=== PATIENT | male | born 1945 | race Caucasian/White ===

== ENCOUNTER 2020-05-01 13:43 | Inpatient (IN) | payer BC, SELFPAY ==
[~2020-05-01] VITALS: Ht 185.4 cm; Wt 80.7 kg
[2020-05-01 14:02] VITALS: BP_SYST 146
[2020-05-01 15:08] LABS: BILIRUBIN,URINE NEGATIVE (NEGATIVE); CLARITY/URINE CLEAR (CLEAR); COLOR,URINE YELLOW (YELLOW); GLUCOSE,URINE 2+ (NEGATIVE); KETONES,URINE NEGATIVE (NEGATIVE); LEUKOCYTE ESTERASE ,URINE NEGATIVE (NEGATIVE); NITRITE, URINE NEGATIVE (NEGATIVE); PROTEIN URINE 3+ (NEGATIVE); UROBILINOGEN,URINE 0.2 (0.2-1.0)
[2020-05-01 15:21] LABS: BLOOD, URINE TRACE (NEGATIVE)
[2020-05-01 15:39] LABS: BASOPHILS % (AUTO) 0.1 % (0.0-2.0); EOSINOPHILS % (AUTO) 0.1 % (0.0-4.0); HEMOGLOBIN 7.2 g/dL (14.0-18.0); LYMPHOCYTES # (AUTO) 0.8 K/uL (1.0-5.5); LYMPHOCYTES % (AUTO) 6.2 % (20.5-51.5); MEAN CORPUSCULAR HEMOGLOBIN 29 pg (27-31); MEAN CORPUSCULAR HGB CONC 34 % (32-36); MEAN CORPUSCULAR VOLUME 85 fL (79.0-98.0); MONOCYTES # (AUTO) 0.4 K/uL (0.0-1.0); MONOCYTES % (AUTO) 2.7 % (1.7-9.3); NEUTROPHILS # (AUTO) 11.7 K/uL (1.8-7.7); NEUTROPHILS % (AUTO) 90.9 % (40.0-70.0); PLATELET COUNT (AUTO) 327 K/uL (130-430); RED BLOOD CELL COUNT(AUTO) 2.53 MIL/uL (4.2-6.2); RED CELL DISTRIBUTION WIDTH 15.2 % (9.0-15.0); WHITE BLOOD COUNT (AUTO) 12.9 K/uL (4.8-10.8)
[2020-05-01 15:48] LABS: BACTERIA,URINE FEW /HPF (None Seen); MUCUS,URINE None Seen /LPF (None Seen); RBC,URINE 0-3 /HPF (0-3)
[2020-05-01 15:56] LABS: HEMATOCRIT 21.5 % (36-54)
[2020-05-01 16:02] LABS: ANION GAP 11 (5-15); CALCIUM 8.2 mg/dL (8.4-11.0); CHLORIDE 98 mmol/L (98-107); CREATININE 6.28 mg/dL (0.55-1.30); GLUCOSE 244 mg/dL (70-99); SODIUM SERUM 136 mmol/L (136-145); UREA NITROGEN, BLOOD 53 mg/dL (8-21)
[2020-05-01 16:09] LABS: ALANINE AMINOTRANSFERASE 76 U/L (12-78); ALBUMIN 1.9 g/dL (3.4-4.8); ASPARTATE AMINOTRANSFERASE 53 U/L (10-37); TOTAL BILIRUBIN 0.5 mg/dL (0.0-1.0)
[2020-05-01 16:13] LABS: POTASSIUM 2.9 mmol/L (3.5-5.1)
[2020-05-01] MEDS ORDERED: DEXAMETHASONE SOD PHOSPHATE 4 MG/ML VIAL IVP ONE ×2 (16:15→18:15)
[2020-05-01] MEDS ORDERED: cefTRIAXone 1 GM IVPB PREMIX 50 ML IV ONE (16:15)
[2020-05-01] MEDS ORDERED: AZITHROMYCIN 500 MG in NS 250 ML IV ONE (16:15)
[2020-05-01] MEDS ORDERED: AZITHROMYCIN 500 MG/VIAL (ZITHROMAX) IV ONE (16:35)
[2020-05-01] MEDS ORDERED: DEXAMETHASONE SOD PHOSPHATE 4 MG/ML VIAL ONE (16:46)
[2020-05-01] MEDS ORDERED: DEXAMETHASONE SOD PHOSPHATE 10 MG/ML VIAL IVP SCH (17:00)
[2020-05-01] MEDS ORDERED: IPRATROPIUM BROM 0.5 MG/2.5 ML VIAL.NEB (ATROVENT) INH PRN (17:00)
[2020-05-01 17:18] VITALS: BP_SYST 160
[2020-05-01 17:20] VITALS: BP_SYST 124
[2020-05-01] MEDS ORDERED: ALBUTEROL MDI INHALATION 8 GM INH INH PRN (17:30)
[2020-05-01] MEDS ORDERED: ALBUTEROL MDI INHALATION 8 GM INH INH SCH (19:00)
[2020-05-01] MEDS: ALBUTEROL MDI INHALATION 8 GM INH INH SCH (19:55)
[2020-05-01] MEDS: MORPHINE 2 MG/ML INJ. SYRINGE IVP PRN (20:47)
[2020-05-01] MEDS: HEPARIN SODIUM,PORCINE 5,000 UNITS/ML VIAL SUBCUT SCH (20:57)
[2020-05-01] MEDS ORDERED: HEPARIN SODIUM,PORCINE 5,000 UNITS/ML VIAL MC ONE (21:00)
[2020-05-02] VITALS (8 sets, daily range): BP systolic 154–180
[2020-05-02 07:21] LABS: BASOPHILS % (AUTO) 0.3 % (0.0-2.0); HEMATOCRIT 29.5 % (36-54); HEMOGLOBIN 10.2 g/dL (14.0-18.0); LYMPHOCYTES # (AUTO) 0.6 K/uL (1.0-5.5); LYMPHOCYTES % (AUTO) 5.9 % (20.5-51.5); MEAN CORPUSCULAR HEMOGLOBIN 30 pg (27-31); MEAN CORPUSCULAR HGB CONC 35 % (32-36); MEAN CORPUSCULAR VOLUME 86 fL (79.0-98.0); MONOCYTES # (AUTO) 0.3 K/uL (0.0-1.0); NEUTROPHILS # (AUTO) 9.6 K/uL (1.8-7.7); NEUTROPHILS % (AUTO) 90.8 % (40.0-70.0); PLATELET COUNT (AUTO) 274 K/uL (130-430); RED BLOOD CELL COUNT(AUTO) 3.43 MIL/uL (4.2-6.2); RED CELL DISTRIBUTION WIDTH 14.9 % (9.0-15.0); WHITE BLOOD COUNT (AUTO) 10.6 K/uL (4.8-10.8)
[2020-05-02] MEDS: IPRATROPIUM BROM 0.5 MG/2.5 ML VIAL.NEB (ATROVENT) INH SCH ×2 (07:30→15:35)
[2020-05-02] MEDS: ALBUTEROL MDI INHALATION 8 GM INH INH SCH ×4 (07:30→19:59)
[2020-05-02 07:42] LABS: ALANINE AMINOTRANSFERASE 72 U/L (12-78); ALBUMIN 1.9 g/dL (3.4-4.8); ANION GAP 11 (5-15); ASPARTATE AMINOTRANSFERASE 47 U/L (10-37); CHLORIDE 100 mmol/L (98-107); CREATININE 5.05 mg/dL (0.55-1.30); GLUCOSE 185 mg/dL (70-99); POTASSIUM 3.7 mmol/L (3.5-5.1); SODIUM SERUM 137 mmol/L (136-145); TOTAL BILIRUBIN 0.4 mg/dL (0.0-1.0); UREA NITROGEN, BLOOD 39 mg/dL (8-21)
[2020-05-02] MEDS: HEPARIN SODIUM,PORCINE 5,000 UNITS/ML VIAL SUBCUT SCH ×2 (08:31→21:00)
[2020-05-02] MEDS ORDERED: cloNIDine HCL 0.1 MG TABLET PO PRN (09:15)
[2020-05-02] MEDS: hydrALAZINE HCL 20 MG/ML VIAL IVP PRN ×2 (10:07→16:08)
[2020-05-02] MEDS ORDERED: PRAV80TA20 PO (15:31)
[2020-05-02] MEDS ORDERED: GLIP2.5T3 PO (15:31)
[2020-05-02] MEDS ORDERED: DORZ10DR10 EACH EYE (15:31)
[2020-05-02] MEDS ORDERED: ASCO500T20 PO (15:31)
[2020-05-02] MEDS ORDERED: TAMS-11 PO (15:31)
[2020-05-02] MEDS ORDERED: HYDR-4039 PO (15:31)
[2020-05-02] MEDS ORDERED: HCT25 PO (15:31)
[2020-05-02] MEDS ORDERED: CLOP75TA32 PO (15:31)
[2020-05-02] MEDS ORDERED: VERA120C2 PO (15:31)
[2020-05-02] MEDS ORDERED: TEMA30CA5 PO (15:31)
[2020-05-02] MEDS ORDERED: CIME800T PO (15:31)
[2020-05-02] MEDS ORDERED: FERR-69 PO (15:31)
[2020-05-02] MEDS ORDERED: BENA40TA8 PO (15:31)
[2020-05-02] MEDS ORDERED: CAT.2 PO ×2 (15:31)
[2020-05-02] MEDS ORDERED: LEVO150T PO (15:32)
[2020-05-02] MEDS ORDERED: DEXAMETHASONE SOD PHOSPHATE 10 MG/ML VIAL IVP SCH ×2 (17:00)
[2020-05-02] MEDS: DEXAMETHASONE SOD PHOSPHATE 10 MG/ML VIAL IVP SCH (17:08)
[2020-05-02] MEDS: cefTRIAXone 1 GM in D5W 50 ML IV SCH (17:08)
[2020-05-02] MEDS: MORPHINE 2 MG/ML INJ. SYRINGE IVP PRN (17:31)
[2020-05-02] MEDS: AZITHROMYCIN 500 MG in NS 250 ML IV SCH (18:08)
[2020-05-02] MEDS ORDERED: HEPARIN SODIUM,PORCINE 5,000 UNITS/ML VIAL MC ONE (20:15)
[2020-05-02] MEDS: HYDROCHLOROTHIAZIDE 25 MG TABLET (HCTZ) PO SCH (21:12)
[2020-05-02] MEDS: VERAPAMIL HCL 120 MG TABLET.SA PO SCH (21:12)
[2020-05-02] MEDS: FAMOTIDINE 20 MG TABLET PO SCH (21:13)
[2020-05-02] MEDS: TEMAZEPAM 15 MG CAPSULE PO SCH (21:13)
[2020-05-02] MEDS: hydrALAZINE HCL 25 MG TABLET PO SCH (21:14)
[2020-05-02] MEDS: lisinopriL 20 MG TABLET PO SCH (21:14)
[2020-05-03] VITALS: BP_SYST 154
[2020-05-03] MEDS: LEVOTHYROXINE SODIUM 0.15 MG TABLET PO SCH (06:58)
[2020-05-03] MEDS: IPRATROPIUM BROM 0.5 MG/2.5 ML VIAL.NEB (ATROVENT) INH SCH (07:00)
[2020-05-03] MEDS: ALBUTEROL MDI INHALATION 8 GM INH INH SCH ×4 (07:45→19:40)
[2020-05-03 07:55] VITALS: BP_SYST 158
[2020-05-03] MEDS: CLOPIDOGREL BISULFATE 75 MG TABLET PO SCH (09:51)
[2020-05-03] MEDS: VERAPAMIL HCL 120 MG TABLET.SA PO SCH ×2 (09:51→21:00)
[2020-05-03] MEDS: HYDROCHLOROTHIAZIDE 25 MG TABLET (HCTZ) PO SCH ×2 (09:51→21:00)
[2020-05-03] MEDS: TAMSULOSIN HCL 0.4 MG CAP PO SCH (09:51)
[2020-05-03] MEDS: hydrALAZINE HCL 25 MG TABLET PO SCH ×3 (09:51→21:00)
[2020-05-03] MEDS: lisinopriL 20 MG TABLET PO SCH ×2 (09:52→21:00)
[2020-05-03] MEDS: HEPARIN SODIUM,PORCINE 5,000 UNITS/ML VIAL SUBCUT SCH ×2 (09:53→21:00)
[2020-05-03 12:00] VITALS: BP_SYST 155
[2020-05-03 16:00] VITALS: BP_SYST 162
[2020-05-03] MEDS: DEXAMETHASONE SOD PHOSPHATE 10 MG/ML VIAL IVP SCH (17:00)
[2020-05-03] MEDS: cefTRIAXone 1 GM in D5W 50 ML IV SCH (17:00)
[2020-05-03] MEDS: AZITHROMYCIN 500 MG in NS 250 ML IV SCH (17:00)
[2020-05-03 20:00] VITALS: BP_SYST 163
[2020-05-03 20:53] LABS: INR 1.1 (0.80-1.20); PROTHROMBIN TIME 11.7 SECS (9.5-12.5)
[2020-05-03] MEDS: FAMOTIDINE 20 MG TABLET PO SCH (21:00)
[2020-05-03] MEDS: TEMAZEPAM 15 MG CAPSULE PO SCH (21:00)
[2020-05-03] MEDS ORDERED: cloNIDine HCL 0.1 MG TABLET ONE (23:44)
[2020-05-04] VITALS: BP_SYST 186
[2020-05-04] MEDS ORDERED: cloNIDine HCL 0.1 MG TABLET ONE ×2 (00:08→22:58)
[2020-05-04] MEDS: hydrALAZINE HCL 20 MG/ML VIAL IVP PRN (02:14)
[2020-05-04] MEDS: LEVOTHYROXINE SODIUM 0.15 MG TABLET PO SCH (06:37)
[2020-05-04 06:56] LABS: BASOPHILS % (AUTO) 0.2 % (0.0-2.0); EOSINOPHILS # (AUTO) 0.1 K/uL (0.0-0.4); EOSINOPHILS % (AUTO) 0.5 % (0.0-4.0); HEMATOCRIT 38.8 % (36-54); HEMOGLOBIN 12.9 g/dL (14.0-18.0); LYMPHOCYTES # (AUTO) 0.7 K/uL (1.0-5.5); LYMPHOCYTES % (AUTO) 6.2 % (20.5-51.5); MEAN CORPUSCULAR HEMOGLOBIN 29 pg (27-31); MEAN CORPUSCULAR HGB CONC 33 % (32-36); MEAN CORPUSCULAR VOLUME 87 fL (79.0-98.0); MONOCYTES # (AUTO) 0.2 K/uL (0.0-1.0); MONOCYTES % (AUTO) 1.5 % (1.7-9.3); NEUTROPHILS # (AUTO) 10.3 K/uL (1.8-7.7); NEUTROPHILS % (AUTO) 91.6 % (40.0-70.0); PLATELET COUNT (AUTO) 261 K/uL (130-430); RED BLOOD CELL COUNT(AUTO) 4.45 MIL/uL (4.2-6.2); RED CELL DISTRIBUTION WIDTH 15.1 % (9.0-15.0); WHITE BLOOD COUNT (AUTO) 11.2 K/uL (4.8-10.8)
[2020-05-04] MEDS: ALBUTEROL MDI INHALATION 8 GM INH INH SCH ×4 (07:29→19:40)
[2020-05-04 07:42] LABS: ALANINE AMINOTRANSFERASE 53 U/L (12-78); ALBUMIN 2.1 g/dL (3.4-4.8); ANION GAP 16 (5-15); ASPARTATE AMINOTRANSFERASE 29 U/L (10-37); CALCIUM 8.6 mg/dL (8.4-11.0); CHLORIDE 97 mmol/L (98-107); CREATININE 5.48 mg/dL (0.55-1.30); GLUCOSE 259 mg/dL (70-99); POTASSIUM 3.2 mmol/L (3.5-5.1); SODIUM SERUM 136 mmol/L (136-145); TOTAL BILIRUBIN 0.6 mg/dL (0.0-1.0); UREA NITROGEN, BLOOD 47 mg/dL (8-21)
[2020-05-04 08:00] VITALS: BP_SYST 160
[2020-05-04 08:19] VITALS: BP_SYST 186
[2020-05-04] MEDS: CLOPIDOGREL BISULFATE 75 MG TABLET PO SCH ×2 (08:30→08:44)
[2020-05-04] MEDS: TAMSULOSIN HCL 0.4 MG CAP PO SCH ×2 (08:30→08:43)
[2020-05-04] MEDS: hydrALAZINE HCL 25 MG TABLET PO SCH ×3 (08:43→21:04)
[2020-05-04] MEDS: VERAPAMIL HCL 120 MG TABLET.SA PO SCH ×2 (08:43→21:03)
[2020-05-04] MEDS: HEPARIN SODIUM,PORCINE 5,000 UNITS/ML VIAL SUBCUT SCH ×2 (08:44→20:54)
[2020-05-04] MEDS: HYDROCHLOROTHIAZIDE 25 MG TABLET (HCTZ) PO SCH ×2 (08:44→21:04)
[2020-05-04] MEDS: lisinopriL 20 MG TABLET PO SCH ×2 (08:44→21:03)
[2020-05-04 12:16] VITALS: BP_SYST 173
[2020-05-04] MEDS ORDERED: HEPARIN SODIUM,PORCINE 5,000 UNITS/ML VIAL SUBCUT ONE (13:30)
[2020-05-04] MEDS: cefTRIAXone 1 GM in D5W 50 ML IV SCH (15:48)
[2020-05-04 16:18] VITALS: BP_SYST 179
[2020-05-04] MEDS: AZITHROMYCIN 500 MG in NS 250 ML IV SCH (18:21)
[2020-05-04] MEDS: DEXAMETHASONE SOD PHOSPHATE 10 MG/ML VIAL IVP SCH (18:21)
[2020-05-04 20:00] VITALS: BP_SYST 182
[2020-05-04] MEDS: TEMAZEPAM 15 MG CAPSULE PO SCH (21:00)
[2020-05-04] MEDS: FAMOTIDINE 20 MG TABLET PO SCH (21:04)
[2020-05-05] VITALS (7 sets, daily range): BP systolic 153–180
[2020-05-05] MEDS: LEVOTHYROXINE SODIUM 0.15 MG TABLET PO SCH (05:59)
[2020-05-05] MEDS: ALBUTEROL MDI INHALATION 8 GM INH INH SCH ×3 (07:52→15:27)
[2020-05-05] MEDS: HEPARIN SODIUM,PORCINE 5,000 UNITS/ML VIAL SUBCUT SCH ×2 (09:08→22:30)
[2020-05-05] MEDS: CLOPIDOGREL BISULFATE 75 MG TABLET PO SCH (09:09)
[2020-05-05] MEDS: TAMSULOSIN HCL 0.4 MG CAP PO SCH (09:10)
[2020-05-05] MEDS: hydrALAZINE HCL 25 MG TABLET PO SCH ×3 (09:39→22:27)
[2020-05-05] MEDS: HYDROCHLOROTHIAZIDE 25 MG TABLET (HCTZ) PO SCH ×2 (09:41→22:28)
[2020-05-05] MEDS: VERAPAMIL HCL 120 MG TABLET.SA PO SCH ×2 (09:41→22:28)
[2020-05-05] MEDS: lisinopriL 20 MG TABLET PO SCH ×2 (09:41→22:28)
[2020-05-05] MEDS: MORPHINE 2 MG/ML INJ. SYRINGE IVP PRN (12:06)
[2020-05-05] MEDS: DEXAMETHASONE SOD PHOSPHATE 10 MG/ML VIAL IVP SCH (16:09)
[2020-05-05] MEDS: cefTRIAXone 1 GM in D5W 50 ML IV SCH (16:10)
[2020-05-05] MEDS: AZITHROMYCIN 500 MG in NS 250 ML IV SCH (16:49)
[2020-05-05] MEDS: FAMOTIDINE 20 MG TABLET PO SCH (21:35)
[2020-05-05] MEDS: TEMAZEPAM 15 MG CAPSULE PO SCH (21:35)
[2020-05-06] VITALS: BP_SYST 163
[2020-05-06] MEDS: ALBUTEROL MDI INHALATION 8 GM INH INH SCH ×4 (05:07→19:05)
[2020-05-06] MEDS: LEVOTHYROXINE SODIUM 0.15 MG TABLET PO SCH (07:02)
[2020-05-06 07:57] VITALS: BP_SYST 188
[2020-05-06] MEDS: HYDROCHLOROTHIAZIDE 25 MG TABLET (HCTZ) PO SCH ×2 (08:05→20:56)
[2020-05-06] MEDS: TAMSULOSIN HCL 0.4 MG CAP PO SCH (08:05)
[2020-05-06] MEDS: VERAPAMIL HCL 120 MG TABLET.SA PO SCH ×2 (08:06→20:55)
[2020-05-06] MEDS: hydrALAZINE HCL 25 MG TABLET PO SCH ×3 (08:06→20:57)
[2020-05-06] MEDS: lisinopriL 20 MG TABLET PO SCH ×2 (08:07→20:57)
[2020-05-06] MEDS: HEPARIN SODIUM,PORCINE 5,000 UNITS/ML VIAL SUBCUT SCH ×2 (08:07→20:59)
[2020-05-06] MEDS: CLOPIDOGREL BISULFATE 75 MG TABLET PO SCH (08:07)
[2020-05-06] MEDS: hydrALAZINE HCL 20 MG/ML VIAL IVP PRN (11:06)
[2020-05-06 11:28] VITALS: BP_SYST 181
[2020-05-06] MEDS ORDERED: HEPARIN SODIUM,PORCINE 5,000 UNITS/ML VIAL ONE (14:06)
[2020-05-06] MEDS: HEPARIN SODIUM, PORCINE 10,000 UNITS/ 10 ML VIAL MC SCH (14:09)
[2020-05-06 15:40] VITALS: BP_SYST 139
[2020-05-06] MEDS: cefTRIAXone 1 GM in D5W 50 ML IV SCH (16:15)
[2020-05-06] MEDS: DEXAMETHASONE SOD PHOSPHATE 10 MG/ML VIAL IVP SCH (16:15)
[2020-05-06] MEDS: AZITHROMYCIN 500 MG in NS 250 ML IV SCH (17:14)
[2020-05-06 20:00] VITALS: BP_SYST 142
[2020-05-06] MEDS: FAMOTIDINE 20 MG TABLET PO SCH (20:55)
[2020-05-06] MEDS: TEMAZEPAM 15 MG CAPSULE PO SCH (20:55)
[2020-05-06] MEDS: MORPHINE 2 MG/ML INJ. SYRINGE IVP PRN (23:41)
[2020-05-07] VITALS (8 sets, daily range): BP systolic 142–190
[2020-05-07] MEDS: LEVOTHYROXINE SODIUM 0.15 MG TABLET PO SCH (06:39)
[2020-05-07] MEDS: ALBUTEROL MDI INHALATION 8 GM INH INH SCH ×4 (08:16→20:25)
[2020-05-07] MEDS: HYDROCHLOROTHIAZIDE 25 MG TABLET (HCTZ) PO SCH ×2 (08:45→22:12)
[2020-05-07] MEDS: TAMSULOSIN HCL 0.4 MG CAP PO SCH (08:45)
[2020-05-07] MEDS: VERAPAMIL HCL 120 MG TABLET.SA PO SCH ×2 (08:45→22:12)
[2020-05-07] MEDS: CLOPIDOGREL BISULFATE 75 MG TABLET PO SCH (08:46)
[2020-05-07] MEDS: lisinopriL 20 MG TABLET PO SCH ×2 (08:46→22:13)
[2020-05-07] MEDS: hydrALAZINE HCL 25 MG TABLET PO SCH ×3 (08:46→22:11)
[2020-05-07] MEDS: HEPARIN SODIUM,PORCINE 5,000 UNITS/ML VIAL SUBCUT SCH ×2 (08:47→22:14)
[2020-05-07] MEDS: DEXAMETHASONE SOD PHOSPHATE 10 MG/ML VIAL IVP SCH (16:06)
[2020-05-07] MEDS: cefTRIAXone 1 GM in D5W 50 ML IV SCH (16:07)
[2020-05-07] MEDS: TEMAZEPAM 15 MG CAPSULE PO SCH (22:10)
[2020-05-07] MEDS: FAMOTIDINE 20 MG TABLET PO SCH (22:10)
[2020-05-08] VITALS: BP_SYST 155
[2020-05-08] MEDS: LEVOTHYROXINE SODIUM 0.15 MG TABLET PO SCH (06:07)
[2020-05-08] MEDS: ALBUTEROL MDI INHALATION 8 GM INH INH SCH ×4 (07:31→20:26)
[2020-05-08 08:23] VITALS: BP_SYST 158
[2020-05-08] MEDS: TAMSULOSIN HCL 0.4 MG CAP PO SCH (09:00)
[2020-05-08] MEDS: lisinopriL 20 MG TABLET PO SCH ×2 (09:00→21:00)
[2020-05-08] MEDS: HYDROCHLOROTHIAZIDE 25 MG TABLET (HCTZ) PO SCH ×2 (09:00→21:00)
[2020-05-08] MEDS: HEPARIN SODIUM,PORCINE 5,000 UNITS/ML VIAL SUBCUT SCH ×2 (09:00→21:15)
[2020-05-08] MEDS: VERAPAMIL HCL 120 MG TABLET.SA PO SCH ×2 (10:18→21:00)
[2020-05-08] MEDS: CLOPIDOGREL BISULFATE 75 MG TABLET PO SCH (10:18)
[2020-05-08] MEDS: hydrALAZINE HCL 25 MG TABLET PO SCH ×3 (10:19→21:00)
[2020-05-08 12:00] VITALS: BP_SYST 178
[2020-05-08 16:20] VITALS: BP_SYST 197
[2020-05-08 16:27] LABS: BASOPHILS # (AUTO) 0.1 K/uL (0.0-0.2); BASOPHILS % (AUTO) 0.5 % (0.0-2.0); EOSINOPHILS % (AUTO) 0.1 % (0.0-4.0); HEMATOCRIT 34.2 % (36-54); HEMOGLOBIN 11.4 g/dL (14.0-18.0); LYMPHOCYTES # (AUTO) 0.5 K/uL (1.0-5.5); LYMPHOCYTES % (AUTO) 4.8 % (20.5-51.5); MEAN CORPUSCULAR HEMOGLOBIN 29 pg (27-31); MEAN CORPUSCULAR HGB CONC 33 % (32-36); MEAN CORPUSCULAR VOLUME 87 fL (79.0-98.0); MONOCYTES # (AUTO) 0.3 K/uL (0.0-1.0); NEUTROPHILS # (AUTO) 8.8 K/uL (1.8-7.7); NEUTROPHILS % (AUTO) 91.6 % (40.0-70.0); PLATELET COUNT (AUTO) 206 K/uL (130-430); RED BLOOD CELL COUNT(AUTO) 3.93 MIL/uL (4.2-6.2); RED CELL DISTRIBUTION WIDTH 14.9 % (9.0-15.0); WHITE BLOOD COUNT (AUTO) 9.7 K/uL (4.8-10.8)
[2020-05-08] MEDS: DEXAMETHASONE SOD PHOSPHATE 10 MG/ML VIAL IVP SCH (17:00)
[2020-05-08] MEDS: cefTRIAXone 1 GM in D5W 50 ML IV SCH (17:00)
[2020-05-08 17:43] LABS: ANION GAP 13 (5-15); CALCIUM 8.7 mg/dL (8.4-11.0); CHLORIDE 99 mmol/L (98-107); CREATININE 7.09 mg/dL (0.55-1.30); POTASSIUM 3.5 mmol/L (3.5-5.1); SODIUM SERUM 134 mmol/L (136-145); UREA NITROGEN, BLOOD 80 mg/dL (8-21)
[2020-05-08 17:56] LABS: GLUCOSE 594 mg/dL (70-99)
[2020-05-08] MEDS ORDERED: INSULIN REGULAR, HUMAN 100 UNITS/ML, 10 ML VIAL SUBCUT ONE (18:30)
[2020-05-08] MEDS ORDERED: HEPARIN SODIUM, PORCINE 10,000 UNITS/ 10 ML VIAL MC ONE (19:00)
[2020-05-08 20:00] VITALS: BP_SYST 168
[2020-05-08] MEDS ORDERED: LORazepam 2 MG/ML VIAL IVP ONE (20:15)
[2020-05-08] MEDS: FAMOTIDINE 20 MG TABLET PO SCH (21:00)
[2020-05-08] MEDS: INSULIN REGULAR, HUMAN 100 UNITS/ML, 10 ML VIAL (humuLIN R) SUBCUT PRN (21:11)
[2020-05-08] MEDS: hydrALAZINE HCL 20 MG/ML VIAL IVP PRN (21:15)
[2020-05-09] VITALS: BP_SYST 143
[2020-05-09] MEDS: LEVOTHYROXINE SODIUM 0.15 MG TABLET PO SCH (06:21)
[2020-05-09 08:00] VITALS: BP_SYST 171
[2020-05-09] MEDS: CLOPIDOGREL BISULFATE 75 MG TABLET PO SCH (10:03)
[2020-05-09] MEDS: HYDROCHLOROTHIAZIDE 25 MG TABLET (HCTZ) PO SCH ×2 (10:04→20:18)
[2020-05-09] MEDS: lisinopriL 20 MG TABLET PO SCH ×2 (10:04→20:18)
[2020-05-09] MEDS: hydrALAZINE HCL 25 MG TABLET PO SCH ×4 (10:05→20:12)
[2020-05-09] MEDS: TAMSULOSIN HCL 0.4 MG CAP PO SCH (10:05)
[2020-05-09] MEDS: VERAPAMIL HCL 120 MG TABLET.SA PO SCH ×2 (10:06→20:17)
[2020-05-09] MEDS: HEPARIN SODIUM,PORCINE 5,000 UNITS/ML VIAL SUBCUT SCH ×2 (10:11→20:13)
[2020-05-09] MEDS: ALBUTEROL MDI INHALATION 8 GM INH INH SCH ×3 (11:14→15:40)
[2020-05-09 12:02] VITALS: BP_SYST 157
[2020-05-09] MEDS: INSULIN REGULAR, HUMAN 100 UNITS/ML, 10 ML VIAL (humuLIN R) SUBCUT PRN ×3 (12:53→20:05)
[2020-05-09 16:00] VITALS: BP_SYST 151
[2020-05-09] MEDS: DEXAMETHASONE SOD PHOSPHATE 10 MG/ML VIAL IVP SCH (17:30)
[2020-05-09 20:00] VITALS: BP_SYST 130
[2020-05-09] MEDS: FAMOTIDINE 20 MG TABLET PO SCH (20:12)
[2020-05-10] VITALS: BP_SYST 144
[2020-05-10] MEDS: LEVOTHYROXINE SODIUM 0.15 MG TABLET PO SCH (06:06)
[2020-05-10] MEDS: INSULIN REGULAR, HUMAN 100 UNITS/ML, 10 ML VIAL (humuLIN R) SUBCUT PRN ×4 (06:12→20:27)
[2020-05-10] MEDS: ALBUTEROL MDI INHALATION 8 GM INH INH SCH ×4 (08:04→19:45)
[2020-05-10 08:25] VITALS: BP_SYST 181
[2020-05-10 09:00] VITALS: BP_SYST 181
[2020-05-10] MEDS: lisinopriL 20 MG TABLET PO SCH ×2 (09:00→20:14)
[2020-05-10] MEDS: TAMSULOSIN HCL 0.4 MG CAP PO SCH (10:35)
[2020-05-10] MEDS: VERAPAMIL HCL 120 MG TABLET.SA PO SCH ×2 (10:36→20:13)
[2020-05-10] MEDS: CLOPIDOGREL BISULFATE 75 MG TABLET PO SCH (10:36)
[2020-05-10] MEDS: hydrALAZINE HCL 25 MG TABLET PO SCH ×3 (10:37→20:13)
[2020-05-10] MEDS: HYDROCHLOROTHIAZIDE 25 MG TABLET (HCTZ) PO SCH ×2 (10:38→20:14)
[2020-05-10] MEDS: HEPARIN SODIUM,PORCINE 5,000 UNITS/ML VIAL SUBCUT SCH ×2 (10:39→20:16)
[2020-05-10 12:00] VITALS: BP_SYST 151
[2020-05-10] MEDS ORDERED: HEPARIN SODIUM, PORCINE 10,000 UNITS/ 10 ML VIAL MC ONE (16:30)
[2020-05-10] MEDS: DEXAMETHASONE SOD PHOSPHATE 10 MG/ML VIAL IVP SCH (17:00)
[2020-05-10 17:05] VITALS: BP_SYST 115
[2020-05-10 20:00] VITALS: BP_SYST 154
[2020-05-10] MEDS: FAMOTIDINE 20 MG TABLET PO SCH (20:13)
[2020-05-11] VITALS: BP_SYST 149
[2020-05-11] MEDS: INSULIN REGULAR, HUMAN 100 UNITS/ML, 10 ML VIAL (humuLIN R) SUBCUT PRN ×3 (06:21→20:45)
[2020-05-11] MEDS: LEVOTHYROXINE SODIUM 0.15 MG TABLET PO SCH (06:22)
[2020-05-11] MEDS: ALBUTEROL MDI INHALATION 8 GM INH INH SCH ×4 (07:40→19:25)
[2020-05-11 08:25] VITALS: BP_SYST 138
[2020-05-11] MEDS: HEPARIN SODIUM,PORCINE 5,000 UNITS/ML VIAL SUBCUT SCH ×2 (09:00→21:00)
[2020-05-11] MEDS: lisinopriL 20 MG TABLET PO SCH ×2 (09:00→20:26)
[2020-05-11] MEDS: hydrALAZINE HCL 25 MG TABLET PO SCH ×3 (09:00→20:24)
[2020-05-11] MEDS: HYDROCHLOROTHIAZIDE 25 MG TABLET (HCTZ) PO SCH ×2 (09:00→20:25)
[2020-05-11] MEDS: VERAPAMIL HCL 120 MG TABLET.SA PO SCH ×2 (09:00→20:24)
[2020-05-11] MEDS: CLOPIDOGREL BISULFATE 75 MG TABLET PO SCH (12:24)
[2020-05-11] MEDS: TAMSULOSIN HCL 0.4 MG CAP PO SCH (12:34)
[2020-05-11 15:09] LABS: ALANINE AMINOTRANSFERASE 86 U/L (12-78); ALBUMIN 2.2 g/dL (3.4-4.8); ANION GAP 8 (5-15); ASPARTATE AMINOTRANSFERASE 61 U/L (10-37); CALCIUM 8.1 mg/dL (8.4-11.0); CHLORIDE 103 mmol/L (98-107); CREATININE 6.08 mg/dL (0.55-1.30); GLUCOSE 170 mg/dL (70-99); POTASSIUM 3.6 mmol/L (3.5-5.1); SODIUM SERUM 138 mmol/L (136-145); TOTAL BILIRUBIN 0.4 mg/dL (0.0-1.0); UREA NITROGEN, BLOOD 69 mg/dL (8-21)
[2020-05-11 15:55] VITALS: BP_SYST 159
[2020-05-11] MEDS: DEXAMETHASONE SOD PHOSPHATE 10 MG/ML VIAL IVP SCH (17:39)
[2020-05-11 20:00] VITALS: BP_SYST 125
[2020-05-11] MEDS: FAMOTIDINE 20 MG TABLET PO SCH (20:24)
[2020-05-12 04:05] VITALS: BP_SYST 154
[2020-05-12] MEDS: LEVOTHYROXINE SODIUM 0.15 MG TABLET PO SCH (06:53)
[2020-05-12] MEDS: ALBUTEROL MDI INHALATION 8 GM INH INH SCH ×4 (08:20→19:00)
[2020-05-12 08:30] VITALS: BP_SYST 187
[2020-05-12] MEDS: CLOPIDOGREL BISULFATE 75 MG TABLET PO SCH (09:00)
[2020-05-12] MEDS: TAMSULOSIN HCL 0.4 MG CAP PO SCH (09:00)
[2020-05-12] MEDS: HEPARIN SODIUM,PORCINE 5,000 UNITS/ML VIAL SUBCUT SCH ×2 (09:00→22:14)
[2020-05-12] MEDS: lisinopriL 20 MG TABLET PO SCH ×2 (09:09→22:12)
[2020-05-12] MEDS: hydrALAZINE HCL 25 MG TABLET PO SCH ×3 (09:09→22:11)
[2020-05-12] MEDS: VERAPAMIL HCL 120 MG TABLET.SA PO SCH ×2 (09:10→22:12)
[2020-05-12] MEDS: HYDROCHLOROTHIAZIDE 25 MG TABLET (HCTZ) PO SCH ×2 (09:10→22:12)
[2020-05-12] MEDS: INSULIN REGULAR, HUMAN 100 UNITS/ML, 10 ML VIAL (humuLIN R) SUBCUT PRN ×2 (11:36→16:50)
[2020-05-12 12:06] VITALS: BP_SYST 158
[2020-05-12] MEDS ORDERED: HEPARIN SODIUM,PORCINE 5,000 UNITS/ML VIAL MC ONE (12:45)
[2020-05-12] MEDS ORDERED: HEPARIN SODIUM,PORCINE 5,000 UNITS/ML VIAL ONE (13:17)
[2020-05-12] MEDS: HEPARIN SODIUM, PORCINE 10,000 UNITS/ 10 ML VIAL MC SCH (14:07)
[2020-05-12 16:00] VITALS: BP_SYST 139
[2020-05-12 20:00] VITALS: BP_SYST 147
[2020-05-12] MEDS: FAMOTIDINE 20 MG TABLET PO SCH (22:12)
[2020-05-13] VITALS: BP_SYST 139
[2020-05-13] MEDS: LEVOTHYROXINE SODIUM 0.15 MG TABLET PO SCH (06:15)
[2020-05-13] MEDS: INSULIN REGULAR, HUMAN 100 UNITS/ML, 10 ML VIAL (humuLIN R) SUBCUT PRN ×3 (06:42→21:43)
[2020-05-13] MEDS: ALBUTEROL MDI INHALATION 8 GM INH INH SCH ×4 (07:24→20:15)
[2020-05-13 08:00] VITALS: BP_SYST 155
[2020-05-13] MEDS: CLOPIDOGREL BISULFATE 75 MG TABLET PO SCH (09:00)
[2020-05-13] MEDS: HYDROCHLOROTHIAZIDE 25 MG TABLET (HCTZ) PO SCH ×2 (09:45→21:31)
[2020-05-13] MEDS: TAMSULOSIN HCL 0.4 MG CAP PO SCH (09:46)
[2020-05-13] MEDS: VERAPAMIL HCL 120 MG TABLET.SA PO SCH ×2 (09:46→21:31)
[2020-05-13] MEDS: lisinopriL 20 MG TABLET PO SCH ×2 (09:46→21:31)
[2020-05-13] MEDS: hydrALAZINE HCL 25 MG TABLET PO SCH ×3 (09:47→21:32)
[2020-05-13] MEDS: HEPARIN SODIUM,PORCINE 5,000 UNITS/ML VIAL SUBCUT SCH ×2 (09:49→21:41)
[2020-05-13 10:44] LABS: BASOPHILS # (AUTO) 0.1 K/uL (0.0-0.2); EOSINOPHILS # (AUTO) 0.2 K/uL (0.0-0.4); EOSINOPHILS % (AUTO) 1.9 % (0.0-4.0); HEMATOCRIT 34.7 % (36-54); HEMOGLOBIN 11.2 g/dL (14.0-18.0); LYMPHOCYTES # (AUTO) 1.4 K/uL (1.0-5.5); LYMPHOCYTES % (AUTO) 11.6 % (20.5-51.5); MEAN CORPUSCULAR HEMOGLOBIN 29 pg (27-31); MEAN CORPUSCULAR HGB CONC 32 % (32-36); MEAN CORPUSCULAR VOLUME 88 fL (79.0-98.0); MONOCYTES # (AUTO) 0.8 K/uL (0.0-1.0); MONOCYTES % (AUTO) 6.4 % (1.7-9.3); NEUTROPHILS # (AUTO) 9.6 K/uL (1.8-7.7); NEUTROPHILS % (AUTO) 79.1 % (40.0-70.0); PLATELET COUNT (AUTO) 236 K/uL (130-430); RED BLOOD CELL COUNT(AUTO) 3.94 MIL/uL (4.2-6.2); RED CELL DISTRIBUTION WIDTH 15.5 % (9.0-15.0); WHITE BLOOD COUNT (AUTO) 12.1 K/uL (4.8-10.8)
[2020-05-13 12:00] VITALS: BP_SYST 138
[2020-05-13 14:22] VITALS: BP_SYST 138
[2020-05-13 16:00] VITALS: BP_SYST 119
[2020-05-13 20:00] VITALS: BP_SYST 120
[2020-05-13] MEDS: FAMOTIDINE 20 MG TABLET PO SCH (21:19)
[2020-05-14] VITALS: BP_SYST 132
[2020-05-14] MEDS: LEVOTHYROXINE SODIUM 0.15 MG TABLET PO SCH (06:46)
[2020-05-14 07:36] LABS: BASOPHILS % (AUTO) 0.3 % (0.0-2.0); EOSINOPHILS # (AUTO) 0.2 K/uL (0.0-0.4); EOSINOPHILS % (AUTO) 1.6 % (0.0-4.0); HEMATOCRIT 31.3 % (36-54); HEMOGLOBIN 10.1 g/dL (14.0-18.0); LYMPHOCYTES # (AUTO) 1.9 K/uL (1.0-5.5); LYMPHOCYTES % (AUTO) 18.5 % (20.5-51.5); MEAN CORPUSCULAR HEMOGLOBIN 28 pg (27-31); MEAN CORPUSCULAR HGB CONC 32 % (32-36); MEAN CORPUSCULAR VOLUME 88 fL (79.0-98.0); MONOCYTES # (AUTO) 0.8 K/uL (0.0-1.0); MONOCYTES % (AUTO) 7.5 % (1.7-9.3); NEUTROPHILS # (AUTO) 7.4 K/uL (1.8-7.7); NEUTROPHILS % (AUTO) 72.1 % (40.0-70.0); PLATELET COUNT (AUTO) 207 K/uL (130-430); RED BLOOD CELL COUNT(AUTO) 3.54 MIL/uL (4.2-6.2); RED CELL DISTRIBUTION WIDTH 15.6 % (9.0-15.0); WHITE BLOOD COUNT (AUTO) 10.3 K/uL (4.8-10.8)
[2020-05-14 07:51] LABS: ALANINE AMINOTRANSFERASE 122 U/L (12-78); ANION GAP 10 (5-15); ASPARTATE AMINOTRANSFERASE 69 U/L (10-37); CALCIUM 7.8 mg/dL (8.4-11.0); CHLORIDE 101 mmol/L (98-107); GLUCOSE 107 mg/dL (70-99); POTASSIUM 4.3 mmol/L (3.5-5.1); SODIUM SERUM 137 mmol/L (136-145); TOTAL BILIRUBIN 0.4 mg/dL (0.0-1.0); UREA NITROGEN, BLOOD 79 mg/dL (8-21)
[2020-05-14 08:30] VITALS: BP_SYST 162
[2020-05-14] MEDS: HYDROCHLOROTHIAZIDE 25 MG TABLET (HCTZ) PO SCH ×2 (08:31→21:13)
[2020-05-14] MEDS: lisinopriL 20 MG TABLET PO SCH ×2 (08:32→21:13)
[2020-05-14] MEDS: hydrALAZINE HCL 25 MG TABLET PO SCH ×3 (08:33→21:12)
[2020-05-14] MEDS: TAMSULOSIN HCL 0.4 MG CAP PO SCH (08:34)
[2020-05-14] MEDS: VERAPAMIL HCL 120 MG TABLET.SA PO SCH ×2 (08:34→21:12)
[2020-05-14] MEDS: HEPARIN SODIUM,PORCINE 5,000 UNITS/ML VIAL SUBCUT SCH ×2 (08:38→20:56)
[2020-05-14] MEDS: ALBUTEROL MDI INHALATION 8 GM INH INH SCH ×3 (11:30→19:31)
[2020-05-14 12:50] VITALS: BP_SYST 151
[2020-05-14] MEDS: INSULIN REGULAR, HUMAN 100 UNITS/ML, 10 ML VIAL (humuLIN R) SUBCUT PRN ×3 (12:52→21:50)
[2020-05-14 16:00] VITALS: BP_SYST 171
[2020-05-14 20:00] VITALS: BP_SYST 143
[2020-05-14] MEDS: FAMOTIDINE 20 MG TABLET PO SCH (21:13)
[2020-05-15] VITALS: BP_SYST 141
[2020-05-15] MEDS: LEVOTHYROXINE SODIUM 0.15 MG TABLET PO SCH (06:00)
[2020-05-15] MEDS: ALBUTEROL MDI INHALATION 8 GM INH INH SCH ×4 (07:29→20:24)
[2020-05-15 08:00] VITALS: BP_SYST 152
[2020-05-15] MEDS: HYDROCHLOROTHIAZIDE 25 MG TABLET (HCTZ) PO SCH ×2 (08:47→21:00)
[2020-05-15] MEDS: hydrALAZINE HCL 25 MG TABLET PO SCH ×3 (08:47→23:21)
[2020-05-15] MEDS: TAMSULOSIN HCL 0.4 MG CAP PO SCH (08:47)
[2020-05-15] MEDS: lisinopriL 20 MG TABLET PO SCH ×2 (08:48→21:00)
[2020-05-15] MEDS: VERAPAMIL HCL 120 MG TABLET.SA PO SCH ×2 (08:48→21:00)
[2020-05-15] MEDS: HEPARIN SODIUM,PORCINE 5,000 UNITS/ML VIAL SUBCUT SCH ×2 (08:49→23:29)
[2020-05-15] MEDS ORDERED: HEPARIN SODIUM,PORCINE 5,000 UNITS/ML VIAL IV ONE ×2 (10:30)
[2020-05-15 12:00] VITALS: BP_SYST 100
[2020-05-15] MEDS: INSULIN REGULAR, HUMAN 100 UNITS/ML, 10 ML VIAL (humuLIN R) SUBCUT PRN ×2 (13:38→18:19)
[2020-05-15 16:17] VITALS: BP_SYST 105
[2020-05-15] MEDS: FAMOTIDINE 20 MG TABLET PO SCH (21:00)
[2020-05-15 21:55] VITALS: BP_SYST 150
[2020-05-16] MEDS: hydrALAZINE HCL 25 MG TABLET PO SCH ×3 (02:34→21:22)
[2020-05-16] MEDS: LEVOTHYROXINE SODIUM 0.15 MG TABLET PO SCH (06:05)
[2020-05-16 06:14] VITALS: BP_SYST 127
[2020-05-16] MEDS: ALBUTEROL MDI INHALATION 8 GM INH INH SCH ×4 (08:21→20:01)
[2020-05-16 08:23] VITALS: BP_SYST 160
[2020-05-16 08:30] VITALS: BP_SYST 160
[2020-05-16] MEDS: lisinopriL 20 MG TABLET PO SCH ×2 (09:00→21:21)
[2020-05-16] MEDS: VERAPAMIL HCL 120 MG TABLET.SA PO SCH ×2 (09:00→21:22)
[2020-05-16] MEDS: TAMSULOSIN HCL 0.4 MG CAP PO SCH (09:00)
[2020-05-16] MEDS: HEPARIN SODIUM,PORCINE 5,000 UNITS/ML VIAL SUBCUT SCH ×2 (09:00→21:16)
[2020-05-16] MEDS: HYDROCHLOROTHIAZIDE 25 MG TABLET (HCTZ) PO SCH ×2 (09:00→21:21)
[2020-05-16 12:34] VITALS: BP_SYST 149
[2020-05-16 16:41] VITALS: BP_SYST 156
[2020-05-16] MEDS: INSULIN REGULAR, HUMAN 100 UNITS/ML, 10 ML VIAL (humuLIN R) SUBCUT PRN ×2 (17:03→21:20)
[2020-05-16 20:00] VITALS: BP_SYST 150
[2020-05-16] MEDS: FAMOTIDINE 20 MG TABLET PO SCH (21:22)
[2020-05-17 01:26] VITALS: BP_SYST 142
[2020-05-17 05:36] VITALS: BP_SYST 150
[2020-05-17] MEDS: LEVOTHYROXINE SODIUM 0.15 MG TABLET PO SCH (06:19)
[2020-05-17] MEDS: ALBUTEROL MDI INHALATION 8 GM INH INH SCH (07:57)
[2020-05-17 08:25] VITALS: BP_SYST 159
[2020-05-17] MEDS: HEPARIN SODIUM,PORCINE 5,000 UNITS/ML VIAL SUBCUT SCH (09:00)
[2020-05-17] MEDS: VERAPAMIL HCL 120 MG TABLET.SA PO SCH (09:22)
[2020-05-17] MEDS: lisinopriL 20 MG TABLET PO SCH (09:23)
[2020-05-17] MEDS: hydrALAZINE HCL 25 MG TABLET PO SCH (09:23)
[2020-05-17] MEDS: HYDROCHLOROTHIAZIDE 25 MG TABLET (HCTZ) PO SCH (09:23)
[2020-05-17] MEDS: TAMSULOSIN HCL 0.4 MG CAP PO SCH (09:24)
== END 2020-05-17 11:25 | disposition short-term general hospital (02) | DRG 871 ==
LOC: SED 13:43 → STU 16:11 → SMU 05-06 09:40 → UNDODISIN 05-17 11:25
PROVIDERS: ADMIT Internal Medicine Hospice and Palliative Medicine; ATTEND Internal Medicine Hospice and Palliative Medicine
PROC: 30233N1 Transfusion of Nonautologous Red Blood Cells into Peripheral Vein, Percutaneous Approach (ICD-10-PCS; 2020-05-01)
PROC: 5A1D70Z Performance of Urinary Filtration, Intermittent, Less than 6 Hours Per Day (ICD-10-PCS; 2020-05-02)
PROC: 5A1D70Z Performance of Urinary Filtration, Intermittent, Less than 6 Hours Per Day (ICD-10-PCS; 2020-05-04)
PROC: 5A1D70Z Performance of Urinary Filtration, Intermittent, Less than 6 Hours Per Day (ICD-10-PCS; 2020-05-06)
PROC: 5A1D70Z Performance of Urinary Filtration, Intermittent, Less than 6 Hours Per Day (ICD-10-PCS; 2020-05-08)
PROC: 5A1D70Z Performance of Urinary Filtration, Intermittent, Less than 6 Hours Per Day (ICD-10-PCS; 2020-05-10)
PROC: 06HY33Z Insertion of Infusion Device into Lower Vein, Percutaneous Approach (ICD-10-PCS; principal; 2020-05-12)
PROC: B54BZZA Ultrasonography of Right Lower Extremity Veins, Guidance (ICD-10-PCS; 2020-05-12)
PROC: 02HV33Z Insertion of Infusion Device into Superior Vena Cava, Percutaneous Approach (ICD-10-PCS; 2020-05-12)
PROC: 5A1D70Z Performance of Urinary Filtration, Intermittent, Less than 6 Hours Per Day (ICD-10-PCS; 2020-05-12)
PROC: 5A1D70Z Performance of Urinary Filtration, Intermittent, Less than 6 Hours Per Day (ICD-10-PCS; 2020-05-15)
PROC: 5A1D70Z Performance of Urinary Filtration, Intermittent, Less than 6 Hours Per Day (ICD-10-PCS; 2020-05-16)
DX: A41.89 Other specified sepsis (principal); U07.1 COVID-19; J12.82 Pneumonia due to coronavirus disease 2019; N18.6 End stage renal disease; G93.41 Metabolic encephalopathy; J96.01 Acute respiratory failure with hypoxia; I13.2 Hypertensive heart and chronic kidney disease with heart failure and with stage 5 chronic kidney disease, or end stage renal disease; Z20.822 Contact with and (suspected) exposure to COVID-19; E11.22 Type 2 diabetes mellitus with diabetic chronic kidney disease; I50.9 Heart failure, unspecified; Z79.02 Long term (current) use of antithrombotics/antiplatelets; Z99.2 Dependence on renal dialysis
CPT/HCPCS: 36415; 36600; 70450-TC; 71045; 76376; 80048; 80053; 81000-TC; 82140-TC; 82803-TC; 82962; 83605; 85025; 85610-TC; 86886; 86900; 86901; 86920; 87040-TC; 87081; 90935; 90937; 93005; 93970; 94640; 94760; 95816; 96365; 96367; 96375; 97110-GP; 97112-GP; 97116-GP; 97530-GP; 99291; G0378; J0360; J0456; J0696; J1100; J1644; J1815; J2060; J2270; J7050; J7060; P9021

== ENCOUNTER 2021-05-16 18:08 | Inpatient (IN) | payer BC, SELFPAY ==
[~2021-05-16] VITALS: Ht 185.4 cm; Wt 80.3 kg
[~2021-05-16 18:08] MED LIST: ASCO500T20 PO; BENA40TA89 PO; BUPIVACAINE /EPINEPHRINE/PF 0.25% 30 ML VIAL INJ ONE; CAT.2 PO; CIME800T PO; CLOP75TA32 PO; DESFLURANE 15 MIN GAS INH ONE; DORZ10DR10 EACH EYE; FERR-69 PO; HCT25 PO; HEPARIN SODIUM,PORCINE 10,000 UNIT/ML VIAL ONE; HYDR-4039 PO; LEVO150T PO; LIDOCAINE 1% 10 MG/ML, 20 ML MDV ONE; LR 1,000 ML IV.SOLN IV ONE; MIDAZOLAM HCL 5 MG/ML VIAL (VERSED) IV ONE; NS 1000 ML IV.SOLN IV ONE; NS IRRIG SOLN 1000 ML IR ONE; ONDANSETRON HCL 4 MG/2 ML VIAL ONE; PRAV80TA20 PO; PROPOFOL 200MG/ 20ML VIAL (DIPRIVAN) IV ONE; ROCURONIUM BROMIDE 10 MG/ML (ZEMURON) ONE; SUGAMMADEX SODIUM 200 MG/2 ML VIAL IV ONE; TAMS-11 PO; TEMA30CA5 PO; VERA120C2 PO; ceFAZolin SODIUM 1 GM VIAL ONE; ePHEDrine sulfate 50 MG/ML VIAL ONE; fentaNYL CITRATE 250 MCG/5 ML AMP ONE
[2021-05-16 18:10] VITALS: BP_SYST 179
--- NOTE | 2021-05-16 18:10 | NUR ---
Placed in room 5 . Placed on monitoring and evaluation advisor, blood pressure machine and pulse oximeter. To gown for exam. Side rails up. Report given to ANNA DIALLO.
--- NOTE | 2021-05-16 18:16 | NUR ---
ER at bedside examining patient.
--- NOTE | 2021-05-16 18:20 | NUR ---
pt. bib ACLS from home with ALOC for 3 to 4 days per family, pt. awake and alert to name and birthdate, unable to state year, denies pain or SOB, has hx. of DM, renal failure, CHF and heart surgery, family states pt. missed his dialysis friday but went yesterday, Ax. temp. 102.1, no crackels heard on lung auscultation but lung sounds diminished
--- NOTE | 2021-05-16 18:51 | NUR ---
notified Dr. Ricks of [facility]. order for blood cultures placed, lab at bedside
--- NOTE | 2021-05-16 18:52 | NUR ---
Pt. more alert oriented X 4, states drove himself to dialysis yesterday, but doesn't feel good and is weak
--- NOTE | 2021-05-16 19:12 | NUR ---
Patient transported to radiology via gurney, accompanied by staff.
[2021-05-16 19:21] LABS: BASOPHILS % (AUTO) 0.3 % (0.0-2.0); EOSINOPHILS # (AUTO) 0.1 K/uL (0.0-0.4); EOSINOPHILS % (AUTO) 0.7 % (0.0-4.0); HEMATOCRIT 38.5 % (36-54); HEMOGLOBIN 12.5 g/dL (14.0-18.0); LYMPHOCYTES # (AUTO) 1.3 K/uL (1.0-5.5); LYMPHOCYTES % (AUTO) 9.4 % (20.5-51.5); MEAN CORPUSCULAR HEMOGLOBIN 28 pg (27-31); MEAN CORPUSCULAR HGB CONC 32 % (32-36); MEAN CORPUSCULAR VOLUME 86 fL (79.0-98.0); MONOCYTES # (AUTO) 1.1 K/uL (0.0-1.0); MONOCYTES % (AUTO) 8.3 % (1.7-9.3); NEUTROPHILS # (AUTO) 11.1 K/uL (1.8-7.7); NEUTROPHILS % (AUTO) 81.3 % (40.0-70.0); PLATELET COUNT (AUTO) 445 K/uL (130-430); RED BLOOD CELL COUNT(AUTO) 4.47 MIL/uL (4.2-6.2); RED CELL DISTRIBUTION WIDTH 17.5 % (9.0-15.0); WHITE BLOOD COUNT (AUTO) 13.6 K/uL (4.8-10.8)
[2021-05-16 19:23] LABS: ANION GAP 11 (5-15); CHLORIDE 91 mmol/L (98-107); CREATININE 6.43 mg/dL (0.55-1.30); GLUCOSE 168 mg/dL (70-99); POTASSIUM 3.7 mmol/L (3.5-5.1); SODIUM SERUM 130 mmol/L (136-145); UREA NITROGEN, BLOOD 38 mg/dL (8-21)
--- NOTE | 2021-05-16 19:24 | NUR ---
report to Ninfa
[2021-05-16 19:27] LABS: INR 1.8 (0.80-1.20); PROTHROMBIN TIME 17.5 SECS (9.5-12.5)
--- NOTE | 2021-05-16 20:23 | NUR ---
PATIENT A/OX4. PATIENT LYING IN BED WITH EYES OPEN, CHEST RISE AND FALL SYMMETRICAL, NO C/O PAIN OR S/S OR DISTRESS. BED IN LOW AND LOCKED POSITION.
[2021-05-16 20:30] LABS: ALANINE AMINOTRANSFERASE 268 U/L (12-78); ALBUMIN 2.9 g/dL (3.4-4.8); ASPARTATE AMINOTRANSFERASE 331 U/L (10-37); TOTAL BILIRUBIN 0.7 mg/dL (0.0-1.0)
[2021-05-16 20:31] LABS: ALCOHOL, BLOOD 3 mg/dL (<10); THYROID STIMULATING HORMONE 19.48 uIu/mL (0.34-4.82)
--- NOTE | 2021-05-16 20:34 | NUR ---
LAB CALLED AND REPORTED CRITICAL TROPONIN LEVEL OF 310. DR. MORENO INFORMED OF CRITICAL TROPONIN LEVEL. DR. MORENO VERBALIZED UNDERSTANDING, NO NEW ORDERS.
--- NOTE | 2021-05-16 20:35 | NUR ---
DR. MORENO INFORMED PATIENT'S SECOND DIGIT ON RIGHT FOOT NECROTIC. DR. MORENO VERBALIZED UNDERSTANDING, NO NEW ORDERS.
[2021-05-16 20:42] LABS: BILIRUBIN,URINE 1+ (NEGATIVE); BLOOD, URINE 2+ (NEGATIVE); CLARITY/URINE SL CLOUDY (CLEAR); COLOR,URINE YELLOW (YELLOW); GLUCOSE,URINE 1+ (NEGATIVE); KETONES,URINE TRACE (NEGATIVE); LEUKOCYTE ESTERASE ,URINE TRACE (NEGATIVE); NITRITE, URINE NEGATIVE (NEGATIVE); PROTEIN URINE 3+ (NEGATIVE)
--- NOTE | 2021-05-16 20:46 | NUR ---
DR. MORENO INFORMED OF LAB VALUES, INCLUDING ALBUMIN LEVEL OF 3.3. DR. MORENO VERBALIZED UNDERSTANDING OF LAB VALUES, NO FURTHER QUESTIONS, NO NEW ORDERS.
[2021-05-16 20:55] LABS: BARBITURATE, URINE NEGATIVE (NEG <=200); BENZODIAZEPINE, URINE NEGATIVE (NEG <=150); CANNABINOID, URINE NEGATIVE (NEG <=50); COCAINE, URINE NEGATIVE (NEG <=150); METHAMPHETAMINES SCREEN,URINE NEGATIVE (NEG <=500); OPIATE, URINE NEGATIVE (NEG <=100); PHENCYCLIDINE SCREEN,URINE NEGATIVE (NEG <=25); UR TRICYCLIC ANTIDEPRESSANTS NEGATIVE (NEG <=300); URINE AMPHETAMINE NEGATIVE (NEG <=500); URINE METHADONE NEGATIVE (NEG <=200); URINE OXYCODONE SCREEN NEGATIVE (NEG <=100); URINE PROPOXYPHENE SCREEN NEGATIVE (NEG <=300)
--- NOTE | 2021-05-16 20:59 | NUR ---
DR. MORENO INFORMED OF PATIENT'S CURRENT HYPERTENSIVE BP AND MEDICATION REQUESTED FOR BP. DR. MORENO VERBALIZED UNDERSTANDING, NO NEW ORDERS.
[2021-05-16 21:05] LABS: BACTERIA,URINE FEW /HPF (None Seen); MUCUS,URINE 2+ /LPF (None Seen); RBC,URINE 20-50 /HPF (0-3)
[2021-05-16] MEDS ORDERED: cefTRIAXone 1 GM in D5W 50 ML IV ONE (21:15)
[2021-05-16] MEDS ORDERED: ALBUTEROL SULFATE 0.083% 2.5 MG/3 ML VIAL.NEB INH PRN (21:15)
[2021-05-16] MEDS ORDERED: cefTRIAXone 1 GM VIAL ONE (21:20)
[2021-05-16] MEDS: NORMAL SALINE 5 ML DISP.SYRIN IVF SCH (22:17)
[2021-05-16] MEDS: ACETAMINOPHEN 325 MG TABLET PO PRN (22:19)
--- NOTE | 2021-05-16 22:35 | NUR ---
PATIENT SWABBED FOR MRSA - SAMPLE BROUGHT TO LAB
--- NOTE | 2021-05-17 01:41 | NUR ---
Note undone in EDM - 05/17/21 at 0226 by [email or web address] PATIENT SAFELY TRANSFERRED TO FLOOR VIA GURNEY, WITH TELE MONITOR. PATIENT A/OX4, SKIN INTACT, ALL BELONGINGS SENT WITH PATIENT, IV INTACT AND FLUSHED. ALL TRANSFER PAPERWORK SENT WITH PATIENT. REPORT GIVEN TO TELE NURSE, INCLUDING; CODE STATUS, MENTATION, MEDICATIONS GIVEN, ADMITTING DIAGNOSIS, VITAL SIGNS, OXYGEN STATUS, IV STATUS, LAB RESULTS, AND ALL OTHER ASPECTS OF REPORT. TELE NURSE INFORMED DR. VALENCIA STATED THAT SHE "WILL PUT IN A PRN BLOOD PRESSURE MEDICATION." TELE NURSE VERBALIZED UNDERSTANDING OF REPORT, NO FURTHER QUESTIONS.
[2021-05-17] MEDS ORDERED: hydrALAZINE HCL 20 MG/ML VIAL IVP PRN (01:45)
--- NOTE | 2021-05-17 02:04 | NUR ---
CONSULTATION PAGED/CALLED Reason for Consultation:NSTEMI Person Who was Notified: ESTHELA Consulting Physician:LINDA Managing Consultant Clinical Professor Specialty: Ordering Physician: GEOFF
--- NOTE | 2021-05-17 02:10 | NUR ---
RECEIVED PT PT TRANSPORTED FROM ER VIA GURNEY. PT IS IN NO APPARENT DISTRESS, EDUCATED ON HOW TO USE CALL LIGHT. FALL AND SAFETY PRECAUTIONS IN PLACE. BED IN LOWEST POSITION WITH CALL LIGHT WITHIN REACH
[2021-05-17 02:15] VITALS: BP_SYST 189
--- NOTE | 2021-05-17 02:24 | NUR ---
PATIENT SAFELY TRANSFERRED TO FLOOR VIA GURNEY, WITH TELE MONITOR. PATIENT A/OX4, SKIN INTACT, ALL BELONGINGS SENT WITH PATIENT, IV INTACT AND FLUSHED. ALL TRANSFER PAPERWORK SENT WITH PATIENT. REPORT GIVEN TO TELE NURSE, INCLUDING; CODE STATUS, MENTATION, MEDICATIONS GIVEN, ADMITTING DIAGNOSIS, VITAL SIGNS, OXYGEN STATUS, IV STATUS, LAB RESULTS, AND ALL OTHER ASPECTS OF REPORT. TELE NURSE VERBALIZED UNDERSTANDING OF REPORT, NO FURTHER QUESTIONS. Addendum: 05/17/21 at 0226 by [email or web address] PATIENT SAFELY TRANSFERRED TO FLOOR VIA GURNEY, WITH TELE MONITOR. PATIENT A/OX4, SKIN INTACT, ALL BELONGINGS SENT WITH PATIENT, IV INTACT AND FLUSHED. ALL TRANSFER PAPERWORK SENT WITH PATIENT. REPORT GIVEN TO TELE NURSE, INCLUDING; CODE STATUS, MENTATION, MEDICATIONS GIVEN, ADMITTING DIAGNOSIS, VITAL SIGNS, OXYGEN STATUS, IV STATUS, LAB RESULTS, AND ALL OTHER ASPECTS OF REPORT. TELE NURSE INFORMED HYDRALAZINE 10MG IVP GIVEN TO PATIENT FOR ELEVATED BP. TELE NURSE VERBALIZED UNDERSTANDING OF REPORT, NO FURTHER QUESTIONS.
[2021-05-17 04:30] VITALS: BP_SYST 189
--- NOTE | 2021-05-17 05:28 | NUR ---
CONSULTATION PAGED/CALLED Reason for Consultation: ESRD Person Who was Notified: ESTHELA Consulting Physician: BUD Guard Supervisor Specialty: Ordering Physician: TITUS
[2021-05-17 06:44] LABS: ALANINE AMINOTRANSFERASE 186 U/L (12-78); ALBUMIN 2.2 g/dL (3.4-4.8); ANION GAP 11 (5-15); ASPARTATE AMINOTRANSFERASE 201 U/L (10-37); CHLORIDE 94 mmol/L (98-107); CREATININE 6.74 mg/dL (0.55-1.30); GLUCOSE 202 mg/dL (70-99); POTASSIUM 3.4 mmol/L (3.5-5.1); SODIUM SERUM 132 mmol/L (136-145); TOTAL BILIRUBIN 0.6 mg/dL (0.0-1.0); UREA NITROGEN, BLOOD 38 mg/dL (8-21)
--- NOTE | 2021-05-17 07:09 | NUR ---
CLOSING NOTE ENDORSED CARE TO DAY SHIFT. PT IS SLEEPING AT THIS TIME. NO APPARENT SIGNS OF DISTRESS NOTED AT THIS TIME. FALL AND SAFETY PRECAUTIONS IN PLACE. BED IN LOWEST POSITION WITH CALL LIGHT WITHIN REACH
[2021-05-17] MEDS: NORMAL SALINE 5 ML DISP.SYRIN IVF SCH ×3 (07:20→21:17)
[2021-05-17] MEDS: LEVOTHYROXINE SODIUM 0.15 MG TABLET PO SCH (07:20)
[2021-05-17 07:45] LABS: BASOPHILS % (AUTO) 0.2 % (0.0-2.0); EOSINOPHILS # (AUTO) 0.1 K/uL (0.0-0.4); EOSINOPHILS % (AUTO) 0.5 % (0.0-4.0); HEMATOCRIT 34.6 % (36-54); HEMOGLOBIN 10.7 g/dL (14.0-18.0); LYMPHOCYTES # (AUTO) 1.3 K/uL (1.0-5.5); MEAN CORPUSCULAR HEMOGLOBIN 27 pg (27-31); MEAN CORPUSCULAR HGB CONC 31 % (32-36); MEAN CORPUSCULAR VOLUME 87 fL (79.0-98.0); MONOCYTES # (AUTO) 1.6 K/uL (0.0-1.0); MONOCYTES % (AUTO) 9.5 % (1.7-9.3); NEUTROPHILS # (AUTO) 13.8 K/uL (1.8-7.7); NEUTROPHILS % (AUTO) 81.8 % (40.0-70.0); PLATELET COUNT (AUTO) 463 K/uL (130-430); RED BLOOD CELL COUNT(AUTO) 3.99 MIL/uL (4.2-6.2); RED CELL DISTRIBUTION WIDTH 17.9 % (9.0-15.0); WHITE BLOOD COUNT (AUTO) 16.9 K/uL (4.8-10.8)
[2021-05-17 07:57] VITALS: BP_SYST 136
--- NOTE | 2021-05-17 07:59 | NUR ---
OPENING NOTES: PATIENT RESTING IN BED. BREATHING EVEN AND NON LABORED TO O2 AT 2L/NC. FALL, SAFETY AND ASPIRATION MEASURES REINFORCED. BED LOCKED, ALARM ON AND IN LOWEST POSITION. CALL LIGHT WITHIN REACH.
[2021-05-17] MEDS: HYDROCHLOROTHIAZIDE 25 MG TABLET (HCTZ) PO SCH ×2 (09:06→21:17)
[2021-05-17] MEDS: VERAPAMIL HCL 120 MG TABLET.SA PO SCH ×2 (09:06→21:16)
[2021-05-17] MEDS: hydrALAZINE HCL 25 MG TABLET PO SCH ×3 (09:07→21:16)
[2021-05-17] MEDS: CLOPIDOGREL BISULFATE 75 MG TABLET PO SCH (09:07)
[2021-05-17] MEDS: TAMSULOSIN HCL 0.4 MG CAP PO SCH (09:07)
[2021-05-17] MEDS: FAMOTIDINE 20 MG TABLET PO SCH (09:07)
[2021-05-17] MEDS: cloNIDine HCL 0.2 MG TABLET PO SCH ×2 (09:08→17:00)
[2021-05-17] MEDS: DORZOLAMIDE HCL/TIMOLOL MAL. 10 ML EYE DROPS (COSOPT) EACH EYE SCH ×2 (09:10→21:15)
[2021-05-17] MEDS ORDERED: DEXTROSE 50% JECT 50 ML DISP.SYRIN IVP PRN (09:45)
[2021-05-17] MEDS: INSULIN REGULAR, HUMAN 100 UNITS/ML, 10 ML VIAL (humuLIN R) SUBCUT PRN (11:17)
[2021-05-17 11:29] VITALS: BP_SYST 151
--- NOTE | 2021-05-17 12:30 | NUR ---
RN NOTES/IV REINSERTION. IV REINSERTION AT RIGHT FOREARM GAUGE 22.
--- NOTE | 2021-05-17 14:25 | NUR ---
WOUND EVALUATION: Late note for 1425 secondary to patient care. Wound Consult received from Dr. Lozada. Thank you, Dr. lozada, for the consult. Patient received in a Sveta Bed with an IsoFlex CRISTY mattress, awake, alert, confused. Patient is unable to turn independently. Sharad Score is a 16. 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 Recent Labs: WBC 16.9, RBC 3.99, hemoglobin 10.7, hematocrit 34.6, sodium 132, potassium 3.4, chloride 94, BUN 38, creatinine 6.74, glucose 202, POC glucose 217, calcium 8.0, AST 201, ALT 186, albumin 2.2, PT 17.5, INR 1.8, PTT 35.5. Microbiology: Blood culture results x2 in progress. Urine culture results in progress. MRSA screen results in progress. Intrinsic factors that delay wound healing: End-Stage Renal Disease, Insulin Dependent Diabetes Mellitus, Hyperglycemia, Hypoalbuminemia. Extrinsic factors that delay wound healing: Decreased mobility. Wound Assessment: 1. Right second toe: Gangrene with black eschar, present on admission. Pain extends from base of toes to tip of toe and around the circumference of the toe. Recommend: Clean in between toes by flossing with slightly moist gauze, then dry with dry gauze. [place] entire toe with Betadine. Keep site open to air. Perform site care daily. 2. Right great toe, medial aspect: Chronic wound, present on admission. Wound bed has 100% black eschar. No odor, no drainage. Periwound intact. Wound measures 0.5 cm x 0.4 cm. Recommend: [place] eschar site with Betadine. Keep site open to air. Perform site care daily. Also recommend: Encourage and assist patient as needed with repositioning every 2 hours with pillow support and off-load pressure areas with pillows for pressure re-distribution. Offload, elevate and float bilateral heels with pillows. Perform skin care and monitor skin integrity Q shift. Use moisture barrier cream on buttocks and other moisture susceptible areas QID and as needed for soiling. Place patient on a low air-loss mattress.
[2021-05-17 15:29] VITALS: BP_SYST 139
--- NOTE | 2021-05-17 15:34 | NUR ---
RN NOTES/WC: WOUND CARE DONE. AOX4. NO S/S OF ACUTE DISTRESS NOTED.
--- NOTE | 2021-05-17 17:13 | NUR ---
RN NOTES/ HD: HD AT BEDSIDE.
[2021-05-17] MEDS ORDERED: HEPARIN SODIUM,PORCINE 5,000 UNITS/ML VIAL MC ONE (17:30)
--- NOTE | 2021-05-17 19:22 | NUR ---
CLOSING NOTES: PATIENT STILL ON HD. NO S/S OF ACUTE DISTRESS NOTED. FALL AND SAFETY MEASURES RENDERED. CALL LIGHT WITHIN REACH. ENDORSED TO WAREDRESSER RN.
[2021-05-17 20:06] VITALS: BP_SYST 121
--- NOTE | 2021-05-17 20:06 | NUR ---
Opening notes Pt AAOx3, VSS, afebrile. No s/s distress noted. R. chest permacath dressing C/D/I. HD finished 2L output. L. arm AV shunt, good thrill and bruit noted, limb alert bracelet placed. IV saline lock R. hand 22G clear and patent. Pt uses urinal within reach. Call light within reach. Bed low, locked, siderails up x3, alarm on. To monitor.
[2021-05-17] MEDS: TEMAZEPAM 15 MG CAPSULE PO SCH (21:16)
[2021-05-17] MEDS: ATORVASTATIN 20 MG TABLET PO SCH (21:17)
[2021-05-18] VITALS: BP_SYST 136
[2021-05-18] MEDS: INSULIN REGULAR, HUMAN 100 UNITS/ML, 10 ML VIAL (humuLIN R) SUBCUT PRN ×3 (00:05→18:01)
--- NOTE | 2021-05-18 01:25 | NUR ---
Pulled out Permacath Pt pulled out permacath, moderate amount of blood noted. CRN at bedside and put pressure and bleeding controlled. Notified House sup and Dr. Edward paged. Awaiting callback.
--- NOTE | 2021-05-18 01:47 | NUR ---
CALLED : DR LE CALLED AND NOTIFIED THAT PT PULLED OUT PERMA CATH , NOTIFIED MD THAT PT HAS A BLOOD LOSS OF 25ML- 50 ML . ORDERED SITTER . ORDERED TO NOTIFY DR FARRELL IN THE MORNING .NO OTHER ORDER RECEIVED .
--- NOTE | 2021-05-18 02:10 | NUR ---
Continuity of care Pt moved to 132-A with sitter. Rt chest dressing dry and intact, bleeding controlled. Endorsed care to [facility] for transfer of care. All belongings with pt.
[2021-05-18] MEDS: NORMAL SALINE 5 ML DISP.SYRIN IVF SCH ×3 (05:21→21:56)
[2021-05-18] MEDS: LEVOTHYROXINE SODIUM 0.15 MG TABLET PO SCH (06:50)
[2021-05-18 08:00] VITALS: BP_SYST 150
[2021-05-18] MEDS: VERAPAMIL HCL 120 MG TABLET.SA PO SCH ×2 (09:14→21:54)
[2021-05-18] MEDS: TAMSULOSIN HCL 0.4 MG CAP PO SCH (09:15)
[2021-05-18] MEDS: HYDROCHLOROTHIAZIDE 25 MG TABLET (HCTZ) PO SCH (09:16)
[2021-05-18] MEDS: hydrALAZINE HCL 25 MG TABLET PO SCH ×3 (09:16→21:55)
[2021-05-18] MEDS: CLOPIDOGREL BISULFATE 75 MG TABLET PO SCH (09:16)
[2021-05-18] MEDS: cloNIDine HCL 0.2 MG TABLET PO SCH ×2 (09:17→16:59)
--- NOTE | 2021-05-18 10:07 | NUR ---
CONSULTATION PAGED/CALLED Reason for Consultation: [] PLACE A PERMACATH Person Who was Notified: [] LEFT A VOICE MESSAGE Consulting Physician: [] LUANA OREILLY [employer] Specialty: [] INTERVENTIONAL RADIOLOGIST Ordering Physician: [] DR FARRELL
--- NOTE | 2021-05-18 11:00 | NUR ---
LIMO DRIVER AT BEDSIDE, SETTING UP THE MACHINE IN THE ROOM.
[2021-05-18 12:00] VITALS: BP_SYST 145
[2021-05-18] MEDS: DORZOLAMIDE HCL/TIMOLOL MAL. 10 ML EYE DROPS (COSOPT) EACH EYE SCH ×2 (15:56→21:56)
[2021-05-18 16:00] VITALS: BP_SYST 144
--- NOTE | 2021-05-18 17:42 | NUR ---
Dietitian Recommendations * Renal, CCHO diet NIKOLAS, RD Please refer to Nutrition Assessment for details. Addendum: 05/18/21 at [address] Amended: Links added.
[2021-05-18 20:00] VITALS: BP_SYST 131; BP_SYST 132
[2021-05-18] MEDS: FUROSEMIDE 40 MG/4 ML VIAL IVP SCH (21:31)
[2021-05-18] MEDS: ATORVASTATIN 20 MG TABLET PO SCH (21:54)
[2021-05-18] MEDS: TEMAZEPAM 15 MG CAPSULE PO SCH (21:55)
[2021-05-19] VITALS: BP_SYST 126
[2021-05-19] MEDS: LEVOTHYROXINE SODIUM 0.15 MG TABLET PO SCH (06:08)
[2021-05-19] MEDS: NORMAL SALINE 5 ML DISP.SYRIN IVF SCH ×3 (06:10→22:00)
--- NOTE | 2021-05-19 06:52 | NUR ---
CLOSING NOTE PATIENT WAS MONITORED THROUGHOUT THE NIGHT WITH A SITTER. HE WAS NOTED TO BE CONFUSED UNABLE TO TELL THE STAFF THE LOCATION OF WHERE HE WAS. HE KEPT STATING "WHAT HAPPENED TO OUR APARTMENT" AND CALLING A WOMEN'S NAME. HE HAD ONE INCIDENT OF TRYING TO GET OVER SIDE RAILS AND STRIPPING OF GOWN.
[2021-05-19 07:00] LABS: ANION GAP 8 (5-15); CHLORIDE 94 mmol/L (98-107); CREATININE 6.96 mg/dL (0.55-1.30); GLUCOSE 152 mg/dL (70-99); POTASSIUM 4.4 mmol/L (3.5-5.1); SODIUM SERUM 130 mmol/L (136-145); UREA NITROGEN, BLOOD 43 mg/dL (8-21)
--- NOTE | 2021-05-19 07:35 | NUR ---
MORNING ROUNDS: SITTING WITH PATIENT. PATIENT SLEEPING DURING ROUNDS. LEFT ARM AV SHUNT INTACT.CALL LIGHT WITH IN REACH. BED LOCKED AT LOWEST POSITION.BED ALARM ON.NOT IN ANY DISTRESS.
[2021-05-19 08:13] VITALS: BP_SYST 112
[2021-05-19] MEDS: VERAPAMIL HCL 120 MG TABLET.SA PO SCH ×2 (09:00→21:09)
[2021-05-19] MEDS: cloNIDine HCL 0.2 MG TABLET PO SCH ×2 (09:00→17:00)
[2021-05-19] MEDS: FUROSEMIDE 40 MG/4 ML VIAL IVP SCH ×2 (09:00→21:07)
[2021-05-19] MEDS: hydrALAZINE HCL 25 MG TABLET PO SCH ×3 (09:00→21:09)
[2021-05-19] MEDS: CLOPIDOGREL BISULFATE 75 MG TABLET PO SCH (09:09)
[2021-05-19] MEDS: TAMSULOSIN HCL 0.4 MG CAP PO SCH (09:09)
[2021-05-19] MEDS: FAMOTIDINE 20 MG TABLET PO SCH (09:09)
[2021-05-19] MEDS: DORZOLAMIDE HCL/TIMOLOL MAL. 10 ML EYE DROPS (COSOPT) EACH EYE SCH ×2 (09:10→21:10)
[2021-05-19 09:36] LABS: HEMOGLOBIN 10.5 g/dL (14.0-18.0); MEAN CORPUSCULAR HEMOGLOBIN 28 pg (27-31); MEAN CORPUSCULAR HGB CONC 32 % (32-36); MEAN CORPUSCULAR VOLUME 86 fL (79.0-98.0); PLATELET COUNT (AUTO) 434 K/uL (130-430); RED BLOOD CELL COUNT(AUTO) 3.83 MIL/uL (4.2-6.2); RED CELL DISTRIBUTION WIDTH 17.8 % (9.0-15.0); WHITE BLOOD COUNT (AUTO) 10.2 K/uL (4.8-10.8)
[2021-05-19 09:37] LABS: BASOPHILS # (AUTO) 0.1 K/uL (0.0-0.2); BASOPHILS % (AUTO) 0.6 % (0.0-2.0); EOSINOPHILS # (AUTO) 0.2 K/uL (0.0-0.4); EOSINOPHILS % (AUTO) 1.7 % (0.0-4.0); LYMPHOCYTES # (AUTO) 1.1 K/uL (1.0-5.5); LYMPHOCYTES % (AUTO) 11.3 % (20.5-51.5); MONOCYTES # (AUTO) 0.8 K/uL (0.0-1.0); MONOCYTES % (AUTO) 8.3 % (1.7-9.3); NEUTROPHILS % (AUTO) 78.1 % (40.0-70.0)
[2021-05-19] MEDS: INSULIN REGULAR, HUMAN 100 UNITS/ML, 10 ML VIAL (humuLIN R) SUBCUT PRN (11:42)
[2021-05-19 12:00] VITALS: BP_SYST 123
--- NOTE | 2021-05-19 13:02 | NUR ---
MD ROUNDS: DR Keshawn THAKUR SEEN PATIENT IN THE ROOM, SPOKE WITH THE PATIENT.FOR SURGICAL CONSULT FOR HIS RIGHT 2ND,3RD,4TH TOE GANGRENE.
--- NOTE | 2021-05-19 13:14 | NUR ---
NEPHRO ROUNDS: PATIENT SEEN BY DR SALDANA IN THE ROOM.
--- NOTE | 2021-05-19 13:18 | NUR ---
CONSULTATION PAGED/CALLED Reason for Consultation: DIALYSIS CATHETER PLACEMENT/RIGHT TOES GANGRENE Person Who was Notified: CARLOZ Consulting Physician: MYRTLE HANDY Coordinate Measuring Machine Programmer Specialty: SURGEON Ordering Physician: ERNESTINA THAKUR
[2021-05-19 16:03] VITALS: BP_SYST 149
--- NOTE | 2021-05-19 17:22 | NUR ---
HEMODIALYSIS: HEMODIALYSIS STARTED. NO DISTRESS. DIALYSIS NURSE USED LEFT UPPER ARM AV SHUNT.
--- NOTE | 2021-05-19 18:56 | NUR ---
EVENING ROUNDS; PATIENT THROW UP A LARGE AMOUNT OF UNDIGESTED FOOD DURING DIALYSIS. AFTER VOMITS ,PATIENT IS STABLE. CALL LIGHT WITH IN REACH. BED LOCKED AT LOWEST POSITION. NOT IN ANY DISTRESS.DIALYSIS STILL ON GOING.
--- NOTE | 2021-05-19 19:15 | NUR ---
CHANGE OF SHIFT; endorsed by day shift. Hemodialysis in progress. no acute distress.
--- NOTE | 2021-05-19 19:59 | NUR ---
NOTES: Hemodialysis completed and took 2 liters per dialysis nurse. pt. repositioned. VS checked. kept warm with blanket. Left AV shunt access for HD. IV lock on rt. wrist area. on media monitor and shows sinus tach. maintain bed rest. pt. awake but appears tired. and weak. on room air. closely observed.
[2021-05-19 20:00] VITALS: BP_SYST 112
[2021-05-19] MEDS: TEMAZEPAM 15 MG CAPSULE PO SCH (21:07)
[2021-05-19] MEDS: ATORVASTATIN 20 MG TABLET PO SCH (21:09)
--- NOTE | 2021-05-19 21:15 | NUR ---
NOTES" VS rechecked. due medications given. IV antibiotic infused. pt. wet the bed, changed pad and repositioned. HOB elevated. noted rt. arm sore. bed alarm on.
--- NOTE | 2021-05-19 22:33 | NUR ---
NOTES: pt. sleeping, no distress.
[2021-05-20] VITALS (8 sets, daily range): BP systolic 90–138
[2021-05-20] MEDS: INSULIN REGULAR, HUMAN 100 UNITS/ML, 10 ML VIAL (humuLIN R) SUBCUT PRN ×3 (00:05→23:55)
--- NOTE | 2021-05-20 00:07 | NUR ---
NOTES: BS checked 206, with sliding scale coverage.
--- NOTE | 2021-05-20 01:46 | NUR ---
NOTES: pt. remain asleep. no distress.
--- NOTE | 2021-05-20 04:04 | NUR ---
NOTES: condition observed. continue to monitor.
--- NOTE | 2021-05-20 05:00 | NUR ---
NOTES: pt. checked, no urine, terra pad changed and reositioned and ulled up in bed. pt/ weighed 176 lbs. both feet very dry rt. 2nd ans 3rd toes gangrene, open to air.
[2021-05-20] MEDS: NORMAL SALINE 5 ML DISP.SYRIN IVF SCH ×3 (06:33→20:41)
[2021-05-20] MEDS: LEVOTHYROXINE SODIUM 0.15 MG TABLET PO SCH (06:35)
--- NOTE | 2021-05-20 06:35 | NUR ---
CLOSING NOTES; BS checked 105. keeps sliding down the bed. went back to sleep. for further care and assist. bed alarm on. closely watching at bedside, still occ. forgetful, removing monitor box. will endorse to incoming shift.
--- NOTE | 2021-05-20 07:20 | NUR ---
OPENING NOTE Patient resting in bed, falling in and out of sleep. No sign of respiratory distress or pain. IV site is clean, dry, intact and running prescribed fluids. Bed alarm is on, bed locked in lowest position. All needs met at this time, will continue to monitor.
--- NOTE | 2021-05-20 07:55 | NUR ---
INFORMED HANDTOOLS REPAIRER FRANCIA THAT THE PATIENT IS OFF THE TELE MONITOR
[2021-05-20 08:03] LABS: BASOPHILS # (AUTO) 0.1 K/uL (0.0-0.2); BASOPHILS % (AUTO) 0.5 % (0.0-2.0); EOSINOPHILS # (AUTO) 0.2 K/uL (0.0-0.4); EOSINOPHILS % (AUTO) 1.3 % (0.0-4.0); HEMATOCRIT 32.9 % (36-54); HEMOGLOBIN 10.4 g/dL (14.0-18.0); LYMPHOCYTES # (AUTO) 1.2 K/uL (1.0-5.5); LYMPHOCYTES % (AUTO) 9.2 % (20.5-51.5); MEAN CORPUSCULAR HEMOGLOBIN 27 pg (27-31); MEAN CORPUSCULAR HGB CONC 32 % (32-36); MEAN CORPUSCULAR VOLUME 86 fL (79.0-98.0); MONOCYTES % (AUTO) 7.4 % (1.7-9.3); NEUTROPHILS # (AUTO) 10.9 K/uL (1.8-7.7); NEUTROPHILS % (AUTO) 81.6 % (40.0-70.0); PLATELET COUNT (AUTO) 491 K/uL (130-430); RED BLOOD CELL COUNT(AUTO) 3.84 MIL/uL (4.2-6.2); RED CELL DISTRIBUTION WIDTH 17.4 % (9.0-15.0)
[2021-05-20 08:35] LABS: WHITE BLOOD COUNT (AUTO) 13.4 K/uL (4.8-10.8)
[2021-05-20 08:46] LABS: ANION GAP 13 (5-15); CALCIUM 8.1 mg/dL (8.4-11.0); CHLORIDE 95 mmol/L (98-107); CREATININE 6.74 mg/dL (0.55-1.30); GLUCOSE 95 mg/dL (70-99); POTASSIUM 4.6 mmol/L (3.5-5.1); SODIUM SERUM 134 mmol/L (136-145); UREA NITROGEN, BLOOD 46 mg/dL (8-21)
[2021-05-20 08:47] LABS: PHOSPHORUS 4.5 mg/dL (2.7-4.5)
[2021-05-20 08:49] LABS: C-REACTIVE PROTEIN QUANT 13.6 mg/dL (0-0.5)
[2021-05-20 09:18] LABS: ERYTHROCYTE SEDIMENTATION RATE 99 MM/HR (0-15)
[2021-05-20] MEDS: VERAPAMIL HCL 120 MG TABLET.SA PO SCH ×2 (09:29→20:41)
[2021-05-20] MEDS: cloNIDine HCL 0.2 MG TABLET PO SCH ×2 (09:29→17:00)
[2021-05-20] MEDS: CLOPIDOGREL BISULFATE 75 MG TABLET PO SCH (09:30)
[2021-05-20] MEDS: hydrALAZINE HCL 25 MG TABLET PO SCH ×3 (09:30→20:40)
[2021-05-20] MEDS: ACETAMINOPHEN 325 MG TABLET PO PRN (09:33)
[2021-05-20] MEDS: TAMSULOSIN HCL 0.4 MG CAP PO SCH (09:33)
[2021-05-20] MEDS: DORZOLAMIDE HCL/TIMOLOL MAL. 10 ML EYE DROPS (COSOPT) EACH EYE SCH ×2 (09:33→20:41)
[2021-05-20] MEDS: FUROSEMIDE 40 MG/4 ML VIAL IVP SCH ×2 (10:03→20:47)
--- NOTE | 2021-05-20 11:30 | NUR ---
ROUNDS Patient laying down sleeping. No sign of respiratory distress or pain at this time. Bed in lowest position, alarm on. Will continue to monitor.
--- NOTE | 2021-05-20 13:46 | NUR ---
ROUNDS Patient in bed resting after eating lunch. Excellent appetite, encouraged patient to drink water. No complaints of pain at this time. All needs met and safety checks made. Will continue to monitor.
--- NOTE | 2021-05-20 15:15 | NUR ---
ROUNDS Patient asleep in bed, no signs of respiratory distress or pain. Bed set in lowest position, locked with bed alarm on. All needs met at this time. Will continue to monitor.
--- NOTE | 2021-05-20 19:15 | NUR ---
CLOSING NOTE Patient in bed, resting and watching TV. Patient denies pain at this time, no sign of shortness of breath. Patient updated on his plan of care and surgical plans. Patient has not made any attempts to get out of bed throughout the shift, and slept most of the day. BP dropped in the afternoon but has come back up throughout the shift. Nightshift nurse aware of the trend. All needs met at this time, safety checks made and report given to oncoming nurse.
--- NOTE | 2021-05-20 20:00 | NUR ---
OPENING NOTE PATIENT RESTING IN BED WATCHING T.V. MR. TRIPLETT WAS NOTED TO BE MORE ORIENTATED ANSWERING QUESTIONS. TWO SIDE RAILS WERE UP BED WAS PLACED AT THE LOWEST SETTING AND CALL LIGHT WAS WITHIN REACH.
[2021-05-20] MEDS: ATORVASTATIN 20 MG TABLET PO SCH (20:39)
[2021-05-20] MEDS: TEMAZEPAM 15 MG CAPSULE PO SCH (20:40)
[2021-05-21] VITALS (7 sets, daily range): BP systolic 95–134
--- NOTE | 2021-05-21 | NUR ---
PATIENT CONFUSED MR. TRIPLETT TRIED TO GET OUT OF BED MULTIPLE TIME THROUGHOUT THE NIGHT BY PLACING LEGS OVER THE SIDE RAILS AND TRYING TO PULL HIS LEGS OVER. HE WAS ALSO REMOVING HIS TELE MONITOR AND GOWN MULTIPLE TIMES. I PLACED THEM BACK ON MULTIPLE TIMES AND REMAINED IN THE ROOM TO MONITOR HIM.
[2021-05-21] MEDS: NORMAL SALINE 5 ML DISP.SYRIN IVF SCH ×3 (06:11→21:32)
[2021-05-21 06:35] LABS: BASOPHILS # (AUTO) 0.1 K/uL (0.0-0.2); BASOPHILS % (AUTO) 0.4 % (0.0-2.0); EOSINOPHILS # (AUTO) 0.2 K/uL (0.0-0.4); EOSINOPHILS % (AUTO) 1.3 % (0.0-4.0); HEMATOCRIT 28.9 % (36-54); HEMOGLOBIN 9.3 g/dL (14.0-18.0); LYMPHOCYTES # (AUTO) 1.2 K/uL (1.0-5.5); LYMPHOCYTES % (AUTO) 8.9 % (20.5-51.5); MEAN CORPUSCULAR HEMOGLOBIN 27 pg (27-31); MEAN CORPUSCULAR HGB CONC 32 % (32-36); MEAN CORPUSCULAR VOLUME 85 fL (79.0-98.0); MONOCYTES # (AUTO) 1.2 K/uL (0.0-1.0); MONOCYTES % (AUTO) 8.5 % (1.7-9.3); NEUTROPHILS % (AUTO) 80.9 % (40.0-70.0); PLATELET COUNT (AUTO) 460 K/uL (130-430); RED CELL DISTRIBUTION WIDTH 17.1 % (9.0-15.0); WHITE BLOOD COUNT (AUTO) 13.6 K/uL (4.8-10.8)
[2021-05-21] MEDS: LEVOTHYROXINE SODIUM 0.15 MG TABLET PO SCH (06:49)
[2021-05-21 07:02] LABS: ALANINE AMINOTRANSFERASE 95 U/L (12-78); ALBUMIN 1.9 g/dL (3.4-4.8); ANION GAP 14 (5-15); ASPARTATE AMINOTRANSFERASE 65 U/L (10-37); CALCIUM 7.8 mg/dL (8.4-11.0); CHLORIDE 89 mmol/L (98-107); GLUCOSE 107 mg/dL (70-99); PHOSPHORUS 5.1 mg/dL (2.7-4.5); POTASSIUM 4.4 mmol/L (3.5-5.1); SODIUM SERUM 127 mmol/L (136-145); TOTAL BILIRUBIN 0.3 mg/dL (0.0-1.0); UREA NITROGEN, BLOOD 61 mg/dL (8-21)
[2021-05-21] MEDS: FUROSEMIDE 40 MG/4 ML VIAL IVP SCH ×2 (08:34→20:45)
[2021-05-21] MEDS: DORZOLAMIDE HCL/TIMOLOL MAL. 10 ML EYE DROPS (COSOPT) EACH EYE SCH ×2 (08:34→21:28)
[2021-05-21] MEDS: TAMSULOSIN HCL 0.4 MG CAP PO SCH (08:35)
[2021-05-21] MEDS: FAMOTIDINE 20 MG TABLET PO SCH (08:35)
[2021-05-21] MEDS: cloNIDine HCL 0.2 MG TABLET PO SCH ×2 (08:36→17:03)
[2021-05-21] MEDS: hydrALAZINE HCL 25 MG TABLET PO SCH ×3 (08:36→21:00)
[2021-05-21] MEDS: VERAPAMIL HCL 120 MG TABLET.SA PO SCH ×3 (08:37→21:31)
[2021-05-21 08:44] LABS: CREATININE 8.48 mg/dL (0.55-1.30)
--- NOTE | 2021-05-21 08:51 | NUR ---
PAGED PAGED MIRA GARCIA AT [phone] SPOKE WITH RAFITA.
--- NOTE | 2021-05-21 09:00 | NUR ---
paged dr lopez for criti lab value crea = [phone]
[2021-05-21 09:13] LABS: ERYTHROCYTE SEDIMENTATION RATE 108 MM/HR (0-15)
--- NOTE | 2021-05-21 09:23 | NUR ---
paged again dr lopez for creatinine level.
--- NOTE | 2021-05-21 10:09 | NUR ---
spoke with pt son martín on the phone. informed him of pt's status at this time. martín said he spoke with his dad,the patient, re - surgery and Pt agreed with the surgery.
[2021-05-21 10:55] LABS: C-REACTIVE PROTEIN QUANT 12.4 mg/dL (0-0.5)
[2021-05-21] MEDS: INSULIN REGULAR, HUMAN 100 UNITS/ML, 10 ML VIAL (humuLIN R) SUBCUT PRN (11:46)
--- NOTE | 2021-05-21 13:37 | NUR ---
pt sleeping at this time.
[2021-05-21] MEDS: EPOETIN ALFA-EPBX 4,000 UNITS/ML VIAL SUBCUT SCH (17:05)
--- NOTE | 2021-05-21 17:41 | NUR ---
pt eating dinner by himself.pt able to take pills whole with water.
--- NOTE | 2021-05-21 19:01 | NUR ---
pt sleeping. will endorse to night nurse.
--- NOTE | 2021-05-21 19:05 | NUR ---
OPENING NOTE ENDORSED CARE FROM DAY SHIFT. PT IS SLEEPING AT THIS TIME. NO APPARENT DISTRESS NOTED AT THIS TIME. FALL AND SAFETY PRECAUTIONS IN PLACE. BED IN LOWEST POSITION WITH CALL LIGHT WITHIN REACH. SITTER PRESENT
--- NOTE | 2021-05-21 19:21 | NUR ---
pt endorsed to night nurse clive. pt was not seen attempting to get out of bed or pull out iv.
[2021-05-21] MEDS: TEMAZEPAM 15 MG CAPSULE PO SCH (21:30)
[2021-05-21] MEDS: ATORVASTATIN 20 MG TABLET PO SCH (21:31)
[2021-05-22 00:27] VITALS: BP_SYST 120
[2021-05-22] MEDS: LEVOTHYROXINE SODIUM 0.15 MG TABLET PO SCH (06:16)
[2021-05-22] MEDS: NORMAL SALINE 5 ML DISP.SYRIN IVF SCH ×3 (06:18→23:29)
[2021-05-22 07:04] LABS: CALCIUM 7.6 mg/dL (8.4-11.0); GLUCOSE 106 mg/dL (70-99); POTASSIUM 5.2 mmol/L (3.5-5.1); UREA NITROGEN, BLOOD 76 mg/dL (8-21)
--- NOTE | 2021-05-22 07:28 | NUR ---
CLOSING NOTE ENDORSED CARE TO DAY SHIFT. PT IS SLEEPING AT THIS TIME. NO APPARENT DISTRESS NOTED AT THIS TIME. FALL AND SAFETY PRECAUTIONS IN PLACE. BED IN LOWEST POSITION WITH CALL LIGHT WITHIN REACH. SITTER PRESENT
[2021-05-22 07:46] VITALS: BP_SYST 124
[2021-05-22 07:53] LABS: ANION GAP 18 (5-15); CHLORIDE 88 mmol/L (98-107); SODIUM SERUM 127 mmol/L (136-145)
[2021-05-22 08:02] LABS: CREATININE 9.63 mg/dL (0.55-1.30)
[2021-05-22] MEDS: DORZOLAMIDE HCL/TIMOLOL MAL. 10 ML EYE DROPS (COSOPT) EACH EYE SCH (08:23)
[2021-05-22] MEDS: TAMSULOSIN HCL 0.4 MG CAP PO SCH (08:24)
[2021-05-22] MEDS: FUROSEMIDE 40 MG/4 ML VIAL IVP SCH ×2 (08:24→22:30)
[2021-05-22] MEDS: VERAPAMIL HCL 120 MG TABLET.SA PO SCH ×2 (08:32→22:31)
[2021-05-22] MEDS: cloNIDine HCL 0.2 MG TABLET PO SCH ×2 (08:32→17:16)
[2021-05-22] MEDS: hydrALAZINE HCL 25 MG TABLET PO SCH ×3 (08:32→22:32)
--- NOTE | 2021-05-22 08:58 | NUR ---
PT ATE BREAKFAST BY HIMSELF, TOOK AM PILL WHOLE WITH WATER. PT IS AAOX 2 TO NAME, PLACE. REORIENTED TO DATE ,MONTH AND YEAR.
[2021-05-22] MEDS: ACETAMINOPHEN 325 MG TABLET PO PRN (09:54)
--- NOTE | 2021-05-22 09:54 | NUR ---
pt given tylenol for c/o of r.foot pain. 05/24.
[2021-05-22 11:40] VITALS: BP_SYST 129
[2021-05-22] MEDS: INSULIN REGULAR, HUMAN 100 UNITS/ML, 10 ML VIAL (humuLIN R) SUBCUT PRN ×2 (11:40→23:46)
--- NOTE | 2021-05-22 13:31 | NUR ---
Per HD RN Mya, she is unable to do HD due to Hematoma in the av shunt. She informed Dr Hoskins and ordered to put ice pack on and off to help resolve the hematoma.
[2021-05-22 15:29] VITALS: BP_SYST 149
--- NOTE | 2021-05-22 19:34 | NUR ---
PT LOOKING FOR HIS WALLET, CALLED SON SYLWIA, HE SAID HE IS GOING TO CALL HIS NIECE TO CHECK IF SHE TOOK THE WALLET HOME.
--- NOTE | 2021-05-22 19:35 | NUR ---
PT ENDORSED TO ANNA FOY. ENDORSED THAT WE NEED TO PLACE ICE PACK ON THE HEMATOMA ON THE AV SHUNT.
[2021-05-22] MEDS: ATORVASTATIN 20 MG TABLET PO SCH (22:31)
[2021-05-22] MEDS: TEMAZEPAM 15 MG CAPSULE PO SCH (22:32)
[2021-05-23 00:18] VITALS: BP_SYST 149
[2021-05-23] MEDS: NORMAL SALINE 5 ML DISP.SYRIN IVF SCH ×3 (06:54→21:47)
[2021-05-23] MEDS: LEVOTHYROXINE SODIUM 0.15 MG TABLET PO SCH (07:02)
[2021-05-23 07:13] LABS: ANION GAP 13 (5-15); CALCIUM 8.8 mg/dL (8.4-11.0); CHLORIDE 89 mmol/L (98-107); GLUCOSE 100 mg/dL (70-99); POTASSIUM 4.9 mmol/L (3.5-5.1); SODIUM SERUM 125 mmol/L (136-145); UREA NITROGEN, BLOOD 97 mg/dL (8-21)
--- NOTE | 2021-05-23 08:05 | NUR ---
OPENING NOTES: PATIENT EATING BREAKFAST. BREATHING EVEN AND NON LABORED TO RA. DENIES ANY DISCOMFORT AT THIS TIME. BED LOCKED, ALARM ON AND IN LOWEST POSITION. CALL LIGHT WITHIN REACH.
[2021-05-23 08:15] VITALS: BP_SYST 130
--- NOTE | 2021-05-23 08:34 | NUR ---
SPOKE TO DR. FARRELL: SPOKE TO DR. MOORE AND REPORTED THE ELEVATED CREATININE. DR. FARRELL AT BEDSIDE AND SAW THE SWOLLEN DARREL W/ AV SHUNT. PER BUD, AV SHUNT STILL OKAY TO USE FOR HD.
[2021-05-23] MEDS ORDERED: LIDOCAINE TOPICAL OINT 5%, 35 GM TP PRN (09:00)
[2021-05-23] MEDS: hydrALAZINE HCL 25 MG TABLET PO SCH ×3 (09:00→21:46)
[2021-05-23] MEDS: FAMOTIDINE 20 MG TABLET PO SCH (09:26)
[2021-05-23] MEDS: TAMSULOSIN HCL 0.4 MG CAP PO SCH (09:26)
[2021-05-23] MEDS: DORZOLAMIDE HCL/TIMOLOL MAL. 10 ML EYE DROPS (COSOPT) EACH EYE SCH ×2 (09:27→21:44)
--- NOTE | 2021-05-23 10:54 | NUR ---
RN NOTES: HEMODIALYSIS AT BEDSIDE. NO S/S OF ACUTE DISTRESS NOTED. DENIES ANY DISCOMFORT AT THIS TIME.
--- NOTE | 2021-05-23 10:58 | NUR ---
HD NOT DONE/ AV SHUNT NOT WORKING: PER HD NURSE, HD NOT DONE. AV SHUNT NOT WORKING. PER DR. FARRELL, CONSULT W/ IR, DR. GRIFFITH FOR PERMACATH PLACEMENT.
--- NOTE | 2021-05-23 11:43 | NUR ---
SPOKE TO DR. PADRON: SPOKE TO DR. PADRON REGARDING PERMACATH PLACEMENT. PER DR. PADRON, HE WILL TALK TO DR. FARRELL.
[2021-05-23 12:05] VITALS: BP_SYST 137
[2021-05-23] MEDS: FUROSEMIDE 40 MG/4 ML VIAL IVP SCH ×2 (12:06→21:44)
[2021-05-23] MEDS: VERAPAMIL HCL 120 MG TABLET.SA PO SCH ×2 (12:07→21:45)
[2021-05-23] MEDS: cloNIDine HCL 0.2 MG TABLET PO SCH ×2 (12:07→16:52)
--- NOTE | 2021-05-23 15:00 | NUR ---
RN NOTES/ INCONTINENT CARE: INCONTINENT CARE DONE. NO S/S OF ACUTE DISTRESS NOTED.
[2021-05-23 15:32] VITALS: BP_SYST 141
[2021-05-23] MEDS: INSULIN REGULAR, HUMAN 100 UNITS/ML, 10 ML VIAL (humuLIN R) SUBCUT PRN (16:51)
[2021-05-23] MEDS: EPOETIN ALFA-EPBX 4,000 UNITS/ML VIAL SUBCUT SCH (16:52)
--- NOTE | 2021-05-23 19:20 | NUR ---
LOSING NOTES: PATIENT RESTING IN BED. DENIES DISCOMFORT AT THIS TIME. NO S/S OF ACUTE DISTRESS NOTED. FALL AND SAFETY MEASURES RENDERED. CALL LIGHT WITHIN REACH. ENDORSED TO COPYRIGHT CLERK RN. Addendum: 05/23/21 at 1944 by Symone Ta RN CLOSING NOTES:
[2021-05-23] MEDS: TEMAZEPAM 15 MG CAPSULE PO SCH (21:45)
[2021-05-23] MEDS: ATORVASTATIN 20 MG TABLET PO SCH (21:46)
[2021-05-23 22:01] VITALS: BP_SYST 140
[2021-05-24 00:39] VITALS: BP_SYST 149
[2021-05-24] MEDS: NORMAL SALINE 5 ML DISP.SYRIN IVF SCH ×3 (06:16→23:26)
[2021-05-24] MEDS: LEVOTHYROXINE SODIUM 0.15 MG TABLET PO SCH (07:00)
--- NOTE | 2021-05-24 07:30 | NUR ---
MORNING ROUNDS: PATIENT RESTING DURING ROUNDS. NPO SINCE MIDNIGHT. IV TO SALINE LOCK. LEFT AV SHUNT INTACT,MILD SWELLING AND REDNESS NOTED.CALL LIGHT WITH IN REACH. BED LOCKED AT LOWEST POSITION. SCHEDULE FOR SURGERY THIS MORNING.
[2021-05-24 07:33] LABS: ANION GAP 16 (5-15); CALCIUM 8.5 mg/dL (8.4-11.0); CHLORIDE 91 mmol/L (98-107); GLUCOSE 115 mg/dL (70-99); POTASSIUM 5.4 mmol/L (3.5-5.1); SODIUM SERUM 128 mmol/L (136-145)
[2021-05-24 07:41] LABS: INR 1.2 (0.80-1.20); PROTHROMBIN TIME 11.9 SECS (9.5-12.5)
[2021-05-24 08:10] VITALS: BP_SYST 141
[2021-05-24 08:11] LABS: CREATININE 11.26 mg/dL (0.55-1.30); UREA NITROGEN, BLOOD 102 mg/dL (8-21)
--- NOTE | 2021-05-24 08:30 | NUR ---
SECURE CONSENT: SPOKE WITH PT'S SON CLOTILDE COX AND CONSENTED TO SURGERY VIA PHONE WITH SECOND RN WITNESS.
[2021-05-24] MEDS: FUROSEMIDE 40 MG/4 ML VIAL IVP SCH ×2 (08:59→20:43)
[2021-05-24] MEDS: hydrALAZINE HCL 25 MG TABLET PO SCH ×3 (09:18→20:45)
[2021-05-24] MEDS: VERAPAMIL HCL 120 MG TABLET.SA PO SCH ×2 (09:19→23:31)
[2021-05-24] MEDS: cloNIDine HCL 0.2 MG TABLET PO SCH ×2 (09:20→16:57)
--- NOTE | 2021-05-24 10:00 | NUR ---
TO OR: REPORT GIVEN TO FUNMILAYO STAFF FROM OR AND TO OR VIA BROOKS IN STABLE CONDITION.PRE OP CHECK LIST DONE.CHG DONE PRIOR TO OR.
[2021-05-24] MEDS ORDERED: ePHEDrine sulfate 50 MG/ML VIAL ONE (10:13)
[2021-05-24] MEDS ORDERED: ceFAZolin SODIUM 1 GM VIAL ONE (10:13)
[2021-05-24] MEDS ORDERED: NS 1000 ML IV.SOLN IV ONE (10:13)
[2021-05-24] MEDS ORDERED: NS IRRIG SOLN 1000 ML IR ONE (10:13)
[2021-05-24] MEDS ORDERED: PROPOFOL 200MG/ 20ML VIAL (DIPRIVAN) IV ONE (10:13)
[2021-05-24] MEDS ORDERED: KETAMINE HCL 500 MG/10 ML VIAL ONE (10:13)
[2021-05-24] MEDS ORDERED: LIDOCAINE 1% 10 MG/ML, 20 ML MDV ONE (10:13)
[2021-05-24] MEDS ORDERED: SEVOFLURANE 15 MIN GAS INH ONE (10:13)
[2021-05-24] MEDS ORDERED: MIDAZOLAM HCL 2 MG/2 ML VIAL (VERSED) ONE (10:13)
[2021-05-24] MEDS ORDERED: DEXAMETHASONE SOD PHOSPHATE 4 MG/ML VIAL ONE (10:13)
--- NOTE | 2021-05-24 12:35 | NUR ---
BACK FROM OR: PATIENT BACK FROM OR PER BROOKS. IV RIGHT FOREARM INTACT. RIGHT FEMORAL CENTRAL LINE,DRESSING DRY AND CLEAN.RIGHT DRESSING WITH TIM BANDAGE,CLEAN AND DRY. POST OP ROUTINE VITAL SIGNS TAKEN BY ANTISQUEAK FILLER.STABLE AND AFEBRILE.AWAKE AND COMFORTABLE.NEURO THOMASON WITH IN NORMAL LIMIT.
--- NOTE | 2021-05-24 13:24 | NUR ---
HD: HEMODIALYSIS STARTED BY DESOUZA. STABLE.
[2021-05-24] MEDS ORDERED: HYDROcodone/ACETAMIN 5-325 MG TAB (NORCO/ VICODIN) PO PRN (13:30)
[2021-05-24] MEDS ORDERED: HYDROmorphone 2 MG/ML VIAL IVP PRN (13:30)
[2021-05-24] MEDS ORDERED: MORPHINE 4 MG INJ. 4 MG/ML VIAL IVP PRN (13:30)
[2021-05-24] MEDS: TAMSULOSIN HCL 0.4 MG CAP PO SCH (13:37)
[2021-05-24] MEDS: DORZOLAMIDE HCL/TIMOLOL MAL. 10 ML EYE DROPS (COSOPT) EACH EYE SCH ×2 (13:38→23:27)
--- NOTE | 2021-05-24 16:24 | NUR ---
END OF HD: HD DONE.HD OUT=2.6 LITERS.
[2021-05-24] MEDS ORDERED: HEPARIN SODIUM,PORCINE 5,000 UNITS/ML VIAL ONE (16:36)
[2021-05-24] MEDS: INSULIN REGULAR, HUMAN 100 UNITS/ML, 10 ML VIAL (humuLIN R) SUBCUT PRN (17:41)
[2021-05-24 17:47] VITALS: BP_SYST 136
--- NOTE | 2021-05-24 18:54 | NUR ---
EVENING ROUNDS: PATIENT RESTING IN BED. HAD DINNER. WELL TOLERATED. CALL LIGHT WITH IN REACH. BED LOCKED AT LOWEST POSITION. RIGHT FOOT DRESSING CLEAN AND DRY. RIGHT FEMORAL DRESSING CLEAN AND DRY.NO ACUTE DISTRESS. NEURO THOMASON WITH IN NORMAL LIMIT.
[2021-05-24 20:00] VITALS: BP_SYST 162
[2021-05-24] MEDS: ATORVASTATIN 20 MG TABLET PO SCH (20:43)
[2021-05-24] MEDS: TEMAZEPAM 15 MG CAPSULE PO SCH (20:44)
[2021-05-25 01:14] VITALS: BP_SYST 149
[2021-05-25] MEDS: NORMAL SALINE 5 ML DISP.SYRIN IVF SCH ×3 (04:14→22:05)
[2021-05-25] MEDS: INSULIN REGULAR, HUMAN 100 UNITS/ML, 10 ML VIAL (humuLIN R) SUBCUT PRN ×2 (05:55→17:34)
[2021-05-25] MEDS: LEVOTHYROXINE SODIUM 0.15 MG TABLET PO SCH (07:00)
[2021-05-25 07:37] LABS: ANION GAP 14 (5-15); CALCIUM 8.8 mg/dL (8.4-11.0); CHLORIDE 93 mmol/L (98-107); GLUCOSE 174 mg/dL (70-99); POTASSIUM 4.9 mmol/L (3.5-5.1); SODIUM SERUM 131 mmol/L (136-145); UREA NITROGEN, BLOOD 74 mg/dL (8-21)
[2021-05-25 07:53] LABS: CREATININE 8.81 mg/dL (0.55-1.30)
[2021-05-25 08:00] VITALS: BP_SYST 141
--- NOTE | 2021-05-25 08:00 | NUR ---
TO OR: PATIENT TO OR FOR PERMA CATHETER PLACEMENT THROUGH GUIDED IMAGING BY DR PADRON UNDER SEDATION.PRE OP CHECK LIST DONE. VITAL SIGNS STABLE. AFEBRILE. NPO MAINTAINED SINCE MIDNIGHT.NO BP MEDS GIVEN PER ANESTHESIOLOGIST.
[2021-05-25] MEDS ORDERED: HYDROmorphone 1 MG/ML INJ. CARTRIDGE IVP PRN ×2 (08:45)
[2021-05-25] MEDS ORDERED: LABETALOL 100 MG/ 20ML VIAL IVP PRN (08:45)
[2021-05-25] MEDS: NACL 0.9% 1,000 ML IV SCH (08:45)
[2021-05-25] MEDS ORDERED: hydrALAZINE HCL 20 MG/ML VIAL IVP PRN (08:45)
[2021-05-25] MEDS ORDERED: METOCLOPRAMIDE HCL 10 MG/2 ML VIAL IVP PRN (08:45)
[2021-05-25] MEDS ORDERED: MEPERIDINE HCL/PF 25 MG/ML DISP.SYRIN IVP PRN (08:45)
[2021-05-25] MEDS: TAMSULOSIN HCL 0.4 MG CAP PO SCH (09:00)
[2021-05-25] MEDS: cloNIDine HCL 0.2 MG TABLET PO SCH ×2 (09:00→17:28)
[2021-05-25] MEDS: FUROSEMIDE 40 MG/4 ML VIAL IVP SCH ×2 (09:00→22:06)
[2021-05-25] MEDS: hydrALAZINE HCL 25 MG TABLET PO SCH ×3 (09:00→22:05)
[2021-05-25] MEDS: VERAPAMIL HCL 120 MG TABLET.SA PO SCH ×2 (09:00→22:06)
--- NOTE | 2021-05-25 10:20 | NUR ---
HD NOTES: HEMODIALYSIS STARTED BY DESOUZA. STABLE.
[2021-05-25 10:30] VITALS: BP_SYST 125
--- NOTE | 2021-05-25 10:34 | NUR ---
BACK FROM OR: PATIENT BACK FROM OR.ROUTINE POST OP VITAL SIGNS TAKEN. S/P RIGHT SUBCLAVIAN PERMA CATH PLACEMENT,DRESSING CLEAN AND DRY.AWAKE,ALERT AND ORIENTED TO HIS NAME AND DATE OF .RIGHT FOOT DRESSING CLEAN AND DRY.
[2021-05-25] MEDS ORDERED: HEPARIN SODIUM,PORCINE 5,000 UNITS/ML VIAL MC ONE (11:45)
--- NOTE | 2021-05-25 11:50 | NUR ---
HIGH ALERT NOTE: Called Dr. Hoskins back at his identified within the medical roster to verify physician authenticity.
[2021-05-25 12:00] VITALS: BP_SYST 124
[2021-05-25] MEDS: FAMOTIDINE 20 MG TABLET PO SCH (14:28)
[2021-05-25] MEDS: DORZOLAMIDE HCL/TIMOLOL MAL. 10 ML EYE DROPS (COSOPT) EACH EYE SCH ×2 (14:28→22:20)
--- NOTE | 2021-05-25 15:59 | NUR ---
Nutrition F/U Nutritional Screening Low Risk F/U Admitting Diagnosis SOB Reviewed Pertinent Medical/Surgical Hx Medical Record Medical History Comment: ESRD, DM, HTN and possible early dementia per physician notes. Pt also found w/ gangrene of R toes. SARS-CoV-2 Ag (Rapid) Negative 05/16, Negative 05/24 Subjective Information Pt is due for low risk F/U. Per EMR review, pt had perma catheter replacement this AM. Pt PO intake is decreasing, Average 53% x6 meals, likely d/t post-op. Pt had amputation of 2nd R toe yesterday. Last BM x1 05/23. Abd is soft and non-distended w/ active bowel sounds; Sharad scale, surgical incision on R toe. Pt is receiving HD every 1-2 days. DI visited pt at bedside, pt was receiving HD. Pt was not responsive. HD tech reported it is not a good time for interviews as pt is very lethargic from Sx. Current Diet Order/Nutrition Support Renal standard x1 day Patient/Significant Other Unable To Verbalize Education Provided Not Indicated Pertinent Medications lipitor, SSI, pepcid Pertinent Labs 05/25: Na 131 L, BUN 74 H, Cr 8.8 H, BG 174 H, POC BG 181 H, WBC 13.6 H Height (Feet) 6 feet Height (Inches) 1.00 inches (*NEW) Weight (Pounds) 180 pounds 05/25: 182.6 # (*NEW) Weight (Calculated Kilograms) 81.789098 kilograms 05/25: 83 kg (*NEW) Body Mass Index 23.75 kg/m2 05/25: 24.1 kg/mw (*NEW) %IBW 98 05/25: 99% Mobile/Adjusted Body Weight 184#/84 Recent Weight Change Unable to verify Weight Status Appropriate Food Allergies Unable to verify Usual Diet At Home Regular per nursing nutritional screening Current % PO Fair (50-74%) (*ongoing) Estimated Energy Expenditure (kcals/day) 3794-1034 (30-35 kcal/kg CBW d/t ESRD/HD) (*ongoing) Estimated Protein Required (g/day) 98-123 (1.2-1.5 gm/kg CBW d/t ESRD/HD) (*ongoing) Estimated Fluid Required (l/day) Per physician d/t ESRD Problem/Etiology/Signs/Symptoms Altered nutrition-related labs R/T endocrine and renal dysfunction AEB abnormal Na, K, BG, POC BG, BUN, and CRE lab values. (*ongoing) Expected Outcomes/Goals - Monitor appetite and PO intakes w/ goal of pt meeting >80% of estimated nutritional needs, labs trending WNL, normal GI function, and skin integrity/wt maintenance Dietitian Recommendations * Renal, CCHO diet plus Agustín BID for wound healing (ONS provides additional 160 kcals/day, 5 grams protein/day). Follow Up Moderate Risk: F/U in 3-5 days Signed: 05/25/21 at 1600 by Swetha CHIRSTENSEN <Co-Signature Required> Co-Signed: 05/25/21 at [address]
--- NOTE | 2021-05-25 16:01 | NUR ---
Dietitian Recommendations * Renal, CCHO diet plus Agustín BID for wound healing (ONS provides additional 160 kcals/day, 5 grams protein/day). LP, RD Please refer to Nutrition F/U for details. Signed: 05/25/21 at 1602 by Swetha CHRISTENSEN <Co-Signature Required> Co-Signed: 05/25/21 at [address]
[2021-05-25 16:45] VITALS: BP_SYST 126
[2021-05-25] MEDS: EPOETIN ALFA-EPBX 4,000 UNITS/ML VIAL SUBCUT SCH (17:29)
--- NOTE | 2021-05-25 19:10 | NUR ---
CLOSING NOTES: RIGHT SUBCLAVIAN PERMA CATHETER,DRESSING CLEAN AND DRY.RIGHT FOREARM IV SALINE LOCK.NO ACUTE DISTRESS. CALL LIGHT WITH IN REACH. BED LOCKED AT LOWEST POSITION. SAFETY MEASURES RENDERED.
[2021-05-25 22:03] VITALS: BP_SYST 130
[2021-05-25] MEDS: TEMAZEPAM 15 MG CAPSULE PO SCH (22:04)
[2021-05-25] MEDS: ATORVASTATIN 20 MG TABLET PO SCH (22:06)
[2021-05-26] MEDS: INSULIN REGULAR, HUMAN 100 UNITS/ML, 10 ML VIAL (humuLIN R) SUBCUT PRN ×3 (00:29→23:54)
[2021-05-26 00:30] VITALS: BP_SYST 127
[2021-05-26] MEDS: NORMAL SALINE 5 ML DISP.SYRIN IVF SCH ×3 (05:53→21:24)
[2021-05-26] MEDS: LEVOTHYROXINE SODIUM 0.15 MG TABLET PO SCH (06:51)
[2021-05-26 06:58] LABS: ANION GAP 15 (5-15); CALCIUM 9.5 mg/dL (8.4-11.0); CHLORIDE 96 mmol/L (98-107); CREATININE 6.98 mg/dL (0.55-1.30); GLUCOSE 155 mg/dL (70-99); POTASSIUM 5.2 mmol/L (3.5-5.1); SODIUM SERUM 135 mmol/L (136-145); UREA NITROGEN, BLOOD 49 mg/dL (8-21)
--- NOTE | 2021-05-26 06:58 | NUR ---
PT IN BED RESTING. PT UNABLE TO MAKE NEEDS KNOWN. PT DID NOT APPEAR TO BE IN PAIN THROUGHOUT SHIFT. PT EDUCATED ON USING THE CALL LIGHT IF HE NEEDS ASSISTANCE. BED ALARM ON. BED RAILS UPX2. CALL LIGHT WITHIN REACH. WILL ENDORSE TO AM RN.
--- NOTE | 2021-05-26 08:00 | NUR ---
NOTES PATIENT IS AXO1. KNOWS HIS NAME. VITAL SIGNS STABLE. AFEBRILE. NO S/S DISTRESS OR PAIN NOTED. CALLIGHT WITHIN REACH. BED LOW POSITION, ALARM/ LOCKED. WILL CONTINUE TO MONITOR.
[2021-05-26] MEDS: hydrALAZINE HCL 25 MG TABLET PO SCH ×3 (08:53→21:23)
[2021-05-26] MEDS: VERAPAMIL HCL 120 MG TABLET.SA PO SCH ×2 (08:54→21:18)
[2021-05-26] MEDS: TAMSULOSIN HCL 0.4 MG CAP PO SCH (08:54)
[2021-05-26] MEDS: cloNIDine HCL 0.2 MG TABLET PO SCH ×2 (08:55→17:04)
[2021-05-26] MEDS: FUROSEMIDE 40 MG/4 ML VIAL IVP SCH (08:56)
[2021-05-26] MEDS: NACL 0.9% 1,000 ML IV SCH (09:06)
[2021-05-26] MEDS: DORZOLAMIDE HCL/TIMOLOL MAL. 10 ML EYE DROPS (COSOPT) EACH EYE SCH ×2 (09:08→21:17)
--- NOTE | 2021-05-26 09:15 | NUR ---
DUE MEDS GIVEN. VITAL SIGNS STABLE. AFEBRILE. LUNGS BILATERAL ARE DIMINISHED. NON PRODUCTIVE COUGH NOTED. IV ACCESS RT FOREARM 22. SALINE LOCK. PATENT/DRY. HAS RT UPPER CHEST PERMACATH. CALL LIGHT WITHIN REACH.
[2021-05-26 09:47] VITALS: BP_SYST 158
[2021-05-26 10:07] VITALS: BP_SYST 158
[2021-05-26 12:28] VITALS: BP_SYST 107
--- NOTE | 2021-05-26 13:00 | NUR ---
LATEST BS 185 MG/DL. COVERAGE GIVEN. MADE COMFORTABLE.
--- NOTE | 2021-05-26 14:00 | NUR ---
CONSENT SIGNED FOR MIDLINE BY THE SON OF THE PATIENT.
--- NOTE | 2021-05-26 14:10 | NUR ---
CALLED DR BLAZE DO. ORDERED TO HAVE SWALLOW EVALUATION AND MIDLINE INSERTION
--- NOTE | 2021-05-26 14:32 | NUR ---
[facility] WAS CALLED, RE: SPEECH THERAPY CONSULT - SWALLOWING EVAL STAT. LEFT A VOICE MESSAGE WITH MADDISON'S CELL.
[2021-05-26 16:45] VITALS: BP_SYST 144
--- NOTE | 2021-05-26 17:31 | NUR ---
LATEST BS 140 MG/DL. NO COVERAGE GIVEN. MADE COMFORTABLE. DUE MEDS GIVEN. CRUSHED AND GIVEN WITH APPLE SAUCE.
--- NOTE | 2021-05-26 17:44 | NUR ---
ENDORSED TO INCOMING NURSE. AWAITING FOR THE PICC LINE NURSE.
--- NOTE | 2021-05-26 17:51 | NUR ---
INFORMED DR DEY IF THE PATIENT NEEDS DIALYSIS TODAY. SAID NO. HAD IT YESTERDAY.
--- NOTE | 2021-05-26 18:00 | NUR ---
SWALLOW EVALUATION TEACH NAMED ANA KEANE AND RECOMMEND TO HAVE PUREE WITH NECTAR THICK LIQUIDS ON IT.
--- NOTE | 2021-05-26 18:09 | NUR ---
ST EVALUATION COMPLETED. ST TX NOT INDICATED AT THIS TIME. RECOMMEND PO DIET OF PUREE AND NECTAR THICK LIQUIDS. 1:1 FEEDER AND FULL ASPIRATION PRECAUTIONS.
--- NOTE | 2021-05-26 19:28 | NUR ---
Patient received from AM shift. Patient is AA&Ox1 not able to verbalize needs no s/s of distress is present at this time. Chest rise is even and unlabored on RA. Normal heart sounds present on tele monitoring. Active bowel sounds x4 on auscultation, no pain noted with palpation. Patient currently is awaiting a placement of a midline. Safety protocols are in place. Will continue to monitor the patient throughout the shift.
[2021-05-26 20:00] VITALS: BP_SYST 133
[2021-05-26] MEDS: ATORVASTATIN 20 MG TABLET PO SCH (21:19)
[2021-05-26] MEDS: TEMAZEPAM 15 MG CAPSULE PO SCH (21:22)
[2021-05-27 03:02] VITALS: BP_SYST 110
[2021-05-27] MEDS: NORMAL SALINE 5 ML DISP.SYRIN IVF SCH ×3 (06:00→21:51)
[2021-05-27] MEDS: LEVOTHYROXINE SODIUM 0.15 MG TABLET PO SCH (06:06)
[2021-05-27 06:45] LABS: ANION GAP 15 (5-15); CALCIUM 9.6 mg/dL (8.4-11.0); CHLORIDE 96 mmol/L (98-107); GLUCOSE 154 mg/dL (70-99); PHOSPHORUS 8.5 mg/dL (2.7-4.5); POTASSIUM 5.3 mmol/L (3.5-5.1); SODIUM SERUM 135 mmol/L (136-145); UREA NITROGEN, BLOOD 64 mg/dL (8-21)
--- NOTE | 2021-05-27 06:52 | NUR ---
Patient is in bed resting no s/s of distress at this time. Patient is unable to verbalize needs, chest rise is even and unlabored. All current shift needs have been met and all scheduled medications have been delivered. Safety protocols are in place. Will differ further care to AM shift nurse for continuity of care.
[2021-05-27 07:19] LABS: BASOPHILS % (AUTO) 0.4 % (0.0-2.0); EOSINOPHILS % (AUTO) 0.1 % (0.0-4.0); HEMATOCRIT 29.1 % (36-54); HEMOGLOBIN 9.4 g/dL (14.0-18.0); LYMPHOCYTES # (AUTO) 0.8 K/uL (1.0-5.5); LYMPHOCYTES % (AUTO) 7.6 % (20.5-51.5); MEAN CORPUSCULAR HEMOGLOBIN 28 pg (27-31); MEAN CORPUSCULAR HGB CONC 33 % (32-36); MEAN CORPUSCULAR VOLUME 86 fL (79.0-98.0); MONOCYTES # (AUTO) 0.9 K/uL (0.0-1.0); MONOCYTES % (AUTO) 8.5 % (1.7-9.3); NEUTROPHILS # (AUTO) 8.9 K/uL (1.8-7.7); NEUTROPHILS % (AUTO) 83.4 % (40.0-70.0); PLATELET COUNT (AUTO) 391 K/uL (130-430); RED BLOOD CELL COUNT(AUTO) 3.39 MIL/uL (4.2-6.2); RED CELL DISTRIBUTION WIDTH 18.1 % (9.0-15.0); WHITE BLOOD COUNT (AUTO) 10.7 K/uL (4.8-10.8)
--- NOTE | 2021-05-27 08:00 | NUR ---
NOTES PT AAOX1. VITAL SIGNS STABLE, AFEBRILE. LUNGS BILATERALLY DIMINISHED AT THE BASES, ABDOMEN SOFT AND NON-DISTENDED, AWAITING FOR PICC LINE NURSE TO COME.RIGHT UPPER PERMACATH NOTED DRY AND INTACT, HOB ELEVATED, CALL LIGHT
[2021-05-27 08:20] VITALS: BP_SYST 131
[2021-05-27] MEDS: VERAPAMIL HCL 120 MG TABLET.SA PO SCH ×2 (08:30→21:46)
[2021-05-27] MEDS: FAMOTIDINE 20 MG TABLET PO SCH (08:31)
[2021-05-27] MEDS: cloNIDine HCL 0.2 MG TABLET PO SCH ×2 (08:32→16:29)
[2021-05-27] MEDS: TAMSULOSIN HCL 0.4 MG CAP PO SCH (08:32)
[2021-05-27] MEDS: DORZOLAMIDE HCL/TIMOLOL MAL. 10 ML EYE DROPS (COSOPT) EACH EYE SCH ×2 (08:33→21:50)
[2021-05-27] MEDS: hydrALAZINE HCL 25 MG TABLET PO SCH ×3 (08:33→21:45)
[2021-05-27] MEDS ORDERED: FUROSEMIDE 40 MG TABLET PO SCH (09:00)
--- NOTE | 2021-05-27 09:36 | NUR ---
DUE MEDS GIVEN, CRUSHED MEDS WITH APPLE SAUCE, TOLERATES WELL, HOB ELEVATED,
--- NOTE | 2021-05-27 09:40 | NUR ---
DR MCKEON MADE AWARE PT NOT EATING ONLY APPLE SAUCE WITH MEDS.
--- NOTE | 2021-05-27 10:30 | NUR ---
DR FARRELL CALLED REGARDING MIDLINE INSERTION, IF OKAY WITH HIM. SAID YES, LONG ONLY ON THE RIGHT ARM. NO LEFT ARM DUE TO AV SHUNT.
[2021-05-27] MEDS: INSULIN REGULAR, HUMAN 100 UNITS/ML, 10 ML VIAL (humuLIN R) SUBCUT PRN ×2 (11:50→16:33)
[2021-05-27 12:28] VITALS: BP_SYST 128
[2021-05-27 16:43] VITALS: BP_SYST 129
--- NOTE | 2021-05-27 17:00 | NUR ---
Nutrition Note RD was notified by pt's primary RN that pt's PO intakes have been declining and may warrant PPN support. She stated that pt has a midline.
--- NOTE | 2021-05-27 17:15 | NUR ---
LATEST BS 192 MG/DL. COVERAGE GIVEN AT THIS TIME.
[2021-05-27 20:00] VITALS: BP_SYST 145
[2021-05-27] MEDS: ATORVASTATIN 20 MG TABLET PO SCH (21:45)
[2021-05-28] MEDS: INSULIN REGULAR, HUMAN 100 UNITS/ML, 10 ML VIAL (humuLIN R) SUBCUT PRN ×3 (00:44→17:34)
[2021-05-28 01:28] VITALS: BP_SYST 131
--- NOTE | 2021-05-28 04:39 | NUR ---
Consultation Paged Reason for Consultation: Leukocytosis Was consult called: Y Person who was notified: Libia Consulting Physician: Dr. Chu Ordering Physician: Ren Kumar
[2021-05-28 06:09] LABS: BASOPHILS # (AUTO) 0.1 K/uL (0.0-0.2); BASOPHILS % (AUTO) 0.4 % (0.0-2.0); EOSINOPHILS # (AUTO) 0.1 K/uL (0.0-0.4); EOSINOPHILS % (AUTO) 0.9 % (0.0-4.0); HEMATOCRIT 29.9 % (36-54); HEMOGLOBIN 9.3 g/dL (14.0-18.0); LYMPHOCYTES % (AUTO) 8.8 % (20.5-51.5); MEAN CORPUSCULAR HEMOGLOBIN 27 pg (27-31); MEAN CORPUSCULAR HGB CONC 31 % (32-36); MEAN CORPUSCULAR VOLUME 86 fL (79.0-98.0); MONOCYTES # (AUTO) 1.2 K/uL (0.0-1.0); MONOCYTES % (AUTO) 10.5 % (1.7-9.3); NEUTROPHILS # (AUTO) 9.2 K/uL (1.8-7.7); NEUTROPHILS % (AUTO) 79.4 % (40.0-70.0); PLATELET COUNT (AUTO) 338 K/uL (130-430); RED BLOOD CELL COUNT(AUTO) 3.46 MIL/uL (4.2-6.2); RED CELL DISTRIBUTION WIDTH 17.8 % (9.0-15.0); WHITE BLOOD COUNT (AUTO) 11.6 K/uL (4.8-10.8)
[2021-05-28] MEDS: LEVOTHYROXINE SODIUM 0.15 MG TABLET PO SCH (06:48)
[2021-05-28] MEDS: NORMAL SALINE 5 ML DISP.SYRIN IVF SCH ×3 (06:48→21:08)
[2021-05-28 07:42] LABS: ALANINE AMINOTRANSFERASE 56 U/L (12-78); ANION GAP 15 (5-15); ASPARTATE AMINOTRANSFERASE 144 U/L (10-37); CALCIUM 9.3 mg/dL (8.4-11.0); CHLORIDE 97 mmol/L (98-107); GLUCOSE 173 mg/dL (70-99); PHOSPHORUS 9.3 mg/dL (2.7-4.5); POTASSIUM 5.4 mmol/L (3.5-5.1); SODIUM SERUM 134 mmol/L (136-145); TOTAL BILIRUBIN 0.2 mg/dL (0.0-1.0); UREA NITROGEN, BLOOD 85 mg/dL (8-21)
--- NOTE | 2021-05-28 07:45 | NUR ---
MORNING ROUNDS: PATIENT RESTING DURING ROUNDS. PATIENT ORIENTED TO HIS NAME AND DATE OF . CALL LIGHT WITH IN [facility]. BED LOCKED AT LOWEST POSITION. RIGHT UPPER CHEST PERMA CATHETER,DRESSING INTACT.RIGHT MIDLINE IV INTACT,DRESSING CLEAN AND DRY.RIGHT FOOT DRESSING CLEAN AND DRY. LEFT UPPER ARM AV SHUNT,STILL SWOLLEN AND WITH DISCOLORATION NOTED. BED ALARM ON. CONTINUE TO MONITOR.
[2021-05-28 08:18] LABS: CREATININE 10.71 mg/dL (0.55-1.30)
--- NOTE | 2021-05-28 08:19 | NUR ---
CRITICAL LAB INFORMED RN OF CRITICAL CREATININE 10.71
[2021-05-28 08:20] VITALS: BP_SYST 143
[2021-05-28 08:30] LABS: C-REACTIVE PROTEIN QUANT 19.4 mg/dL (0-0.5)
[2021-05-28 08:48] LABS: ERYTHROCYTE SEDIMENTATION RATE 111 MM/HR (0-15)
[2021-05-28] MEDS: TAMSULOSIN HCL 0.4 MG CAP PO SCH (09:00)
[2021-05-28] MEDS: VERAPAMIL HCL 120 MG TABLET.SA PO SCH ×2 (09:01→21:02)
[2021-05-28] MEDS: cloNIDine HCL 0.2 MG TABLET PO SCH ×2 (09:01→17:27)
[2021-05-28] MEDS: hydrALAZINE HCL 25 MG TABLET PO SCH ×3 (09:02→21:02)
[2021-05-28] MEDS: DORZOLAMIDE HCL/TIMOLOL MAL. 10 ML EYE DROPS (COSOPT) EACH EYE SCH ×2 (09:08→21:05)
--- NOTE | 2021-05-28 09:10 | NUR ---
HD: HEMODIALYSIS STARTED BY MELINDA.
--- NOTE | 2021-05-28 10:23 | NUR ---
Nutrition F/U Admitting Diagnosis SOB Reviewed Pertinent Medical/Surgical Hx Medical Record Medical History Comment: ESRD, DM, HTN and possible early dementia per physician notes. Pt also found w/ gangrene of R toes. 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 1:1 feeder and full aspiration precautions Per EMR review, pts PO continues to decline, average 25% x9 meals, w/ pt refusing meals. Diet changed to pureed per recommendations, pureed diet included Nepro BID which yields 840 kcals/day and 38 g protein/day. Last BM x1 05/23. Abd is soft and non-distended w/ active bowel sounds; last BM recorded 05/23 x1; Sharad scale 15, surgical incision on R toe. Pt is receiving HD every 1-2 days, last HD 05/28. Nutritional supplements are warranted d/t increased nutrient needs and poor PO intake. Nutrition support may be necessary to meet nutritional needs if PO intake remains poor. Current Diet Order/Nutrition Support Pureed, Renal standard, nectar thick liquids x1 day Patient/Significant Other Unable To Verbalize Education Provided Not Indicated Pertinent Medications Retacrit, Lipitor, SSI, Pepcid, synthroid Pertinent Labs WBC 11.6 H, Na 134 L, K 5.4 H, BUN 85 H, Cr 10.71 H, BG 173 H, Phos 9.3 H, Mg 2.6 H, AST 144 H, CRP 19.4 H, Alb 2 L, S. Protein 7.7 WNL Height (Feet) 6 feet Height (Inches) 1.00 inches (*NEW) Weight (Pounds) 180 pounds 05/25: 182.6 # (*NEW) Weight (Calculated Kilograms) 81.331601 kilograms 05/25: 83 kg (*NEW) Body Mass Index 23.75 kg/m2 05/25: 24.1 kg/mw (*NEW) %IBW 98 05/25: 99% [place]/Adjusted Body Weight 184#/84 Recent Weight Change Unable to verify Weight Status Appropriate Food Allergies Unable to verify Usual Diet At Home Regular per nursing nutritional screening Current % PO Fair (50-74%) (*ongoing) Estimated Energy Expenditure (kcals/day) 9031-3018 (30-35 kcal/kg CBW d/t ESRD/HD) (*ongoing) Estimated Protein Required (g/day) 98-123 (1.2-1.5 gm/kg CBW d/t ESRD/HD) (*ongoing) Estimated Fluid Required (l/day) Per physician d/t ESRD Problem/Etiology/Signs/Symptoms Inadequate oral intake r/t increased lethargy AEB PO intake <25% and refusing meals. (*NEW) Altered nutrition-related labs R/T endocrine and renal dysfunction AEB abnormal Na, K, BG, POC BG, BUN, and CRE lab values. (*ongoing) Expected Outcomes/Goals - Monitor appetite and PO intakes w/ goal of pt meeting >80% of estimated nutritional needs, labs trending WNL, normal GI function, and skin integrity/wt maintenance Dietitian Recommendations * Pureed Renal, [employer] Thick Liquids * Nutrition support may be needed if pts PO intake continues to decline. Follow Up High Risk: 2-3 days
--- NOTE | 2021-05-28 10:57 | NUR ---
HIGH ALERT NOTE: Called Dr. Hoskins back at his identified within the medical roster to verify physician authenticity.
[2021-05-28] MEDS ORDERED: HEPARIN SODIUM,PORCINE 5,000 UNITS/ML VIAL MC ONE (11:30)
[2021-05-28] MEDS: CEFEPIME 0.5 GM in D5W 50 ML IV SCH (11:47)
--- NOTE | 2021-05-28 12:07 | NUR ---
HD: HEMODIALYSIS FINISHED WITH HD OUT=2 LITERS.
[2021-05-28 12:22] VITALS: BP_SYST 144
[2021-05-28] MEDS ORDERED: VANCOMYCIN HCL 1,250 MG in NS 250 ML IV ONE (13:00)
[2021-05-28 16:11] VITALS: BP_SYST 134
--- NOTE | 2021-05-28 17:00 | NUR ---
WOUND CARE: RIGHT 2ND TOE AMPUTEE,CLEAN WITH NS,PAT DRY. OPEN WOUND WITH [id number] SOAKED WITH POVIDINE SOLUTION,ABD PAD +TIM WRAP.
[2021-05-28] MEDS: EPOETIN ALFA-EPBX 4,000 UNITS/ML VIAL SUBCUT SCH (17:28)
--- NOTE | 2021-05-28 18:55 | NUR ---
EVENING ROUNDS: PATIENT TOLERATED PUREED DURING DINNER WITH EQUITY HOLDER'S ASSISTANCE. RIGHT SUBCLAVIAN CATHETER ,DRESSING CLEAN AND DRY. LEFT AV SHUNT STILL SWOLLEN AND WITH DARK DISCOLORATION.RIGHT FOOT TIM BANDAGE ON INTACT. CALL LIGHT WITH IN REACH.BED LOCKED AT LOWEST POSITION. CONDITION GUARDED.
--- NOTE | 2021-05-28 19:15 | NUR ---
OPENING NOTES Patient resting in bed - no s/s pain or distress noted. Respirations even and unlabored - head of bed elevated. IV site patent - no s/ s redness, infection, or infiltration. Bed locked and in lowest position. Call light within reach. Bed alarm on.
[2021-05-28] MEDS: ATORVASTATIN 20 MG TABLET PO SCH (21:01)
[2021-05-29 00:22] VITALS: BP_SYST 132
[2021-05-29] MEDS: INSULIN REGULAR, HUMAN 100 UNITS/ML, 10 ML VIAL (humuLIN R) SUBCUT PRN ×2 (00:26→12:43)
[2021-05-29] MEDS: LEVOTHYROXINE SODIUM 0.15 MG TABLET PO SCH (06:24)
[2021-05-29] MEDS: NORMAL SALINE 5 ML DISP.SYRIN IVF SCH ×3 (06:30→22:00)
[2021-05-29 08:34] VITALS: BP_SYST 136
[2021-05-29] MEDS: cloNIDine HCL 0.2 MG TABLET PO SCH ×2 (09:13→17:41)
[2021-05-29] MEDS: VERAPAMIL HCL 120 MG TABLET.SA PO SCH ×2 (09:14→21:24)
[2021-05-29] MEDS: hydrALAZINE HCL 25 MG TABLET PO SCH ×3 (09:14→21:24)
[2021-05-29] MEDS: FAMOTIDINE 20 MG TABLET PO SCH (09:14)
[2021-05-29] MEDS: TAMSULOSIN HCL 0.4 MG CAP PO SCH (09:15)
[2021-05-29] MEDS: DORZOLAMIDE HCL/TIMOLOL MAL. 10 ML EYE DROPS (COSOPT) EACH EYE SCH ×2 (09:16→21:25)
[2021-05-29 10:13] VITALS: BP_SYST 136
--- NOTE | 2021-05-29 10:49 | NUR ---
Dialysis is set up [facility] in [address] [address] [phone] T-TH-SAT chair time: 1:00-5:00PM text Dr. Neville arshad order for Home health PT
[2021-05-29] MEDS: CEFEPIME 0.5 GM in D5W 50 ML IV SCH (11:35)
[2021-05-29 12:51] VITALS: BP_SYST 134
[2021-05-29] MEDS ORDERED: VANCOMYCIN HCL 1,000 MG in NS 250 ML IV ONE (13:00)
--- NOTE | 2021-05-29 13:53 | NUR ---
CONSULT VASCULAR SURGERY ARTERIALLY INSUFFICIENCY GATO BALBUENA [phone] S/W [facility] OFFICE
[2021-05-29 15:25] VITALS: BP_SYST 110
--- NOTE | 2021-05-29 19:15 | NUR ---
OPENING NOTES ENDORSED CARE FROM DAY SHIFT. PT IS SEMI FOWLERS IN BED. PT IS A/O X 1, PT IS VERY LETHARGIC. NO APPARENT DISTRESS NOTED AT THIS TIME. VITALS ARE STABLE. BED IN LOWEST POSITION WITH CALL LIGHT WITHIN REACH
[2021-05-29 20:00] VITALS: BP_SYST 142
[2021-05-29] MEDS: ATORVASTATIN 20 MG TABLET PO SCH (21:24)
[2021-05-30 00:14] VITALS: BP_SYST 136
--- NOTE | 2021-05-30 01:00 | NUR ---
WOUND CARE WOUND CARE PERFORMED ON RIGHT FOOT PER WOUND CARE GUIDELINES. PT SLEPT THROUGH ENTIRE THING. PT TOLERATED WELL WITH 0/10 PAIN
--- NOTE | 2021-05-30 04:00 | NUR ---
PT CONFUSED PT BECAME CONFUSED AND TRIED GETTING OUT OF BED. REORIENTED PT AND REPOSITIONED. PT FELL BACK ASLEEP. PT DENIED ANY PAIN AT THIS TIME
[2021-05-30] MEDS: LEVOTHYROXINE SODIUM 0.15 MG TABLET PO SCH (06:09)
[2021-05-30] MEDS: NORMAL SALINE 5 ML DISP.SYRIN IVF SCH ×3 (06:09→21:28)
--- NOTE | 2021-05-30 07:21 | NUR ---
OPENING NOTES ENDORSED CARE TO DAY SHIFT. PT IS SEMI FOWLERS IN BED. PT IS A/O X 2, PT IS STILL CONFUSED BUT MORE ALERT THIS MORNING. NO APPARENT DISTRESS NOTED AT THIS TIME. BED IN LOWEST POSITION WITH CALL LIGHT WITHIN REACH Addendum: 05/30/21 at 0802 by Cornell Galeas LVN *CLOSING NOTE
[2021-05-30 08:00] VITALS: BP_SYST 110
--- NOTE | 2021-05-30 08:00 | NUR ---
Rec'd pt A+O x1-2, laying in bed at 0700 sleeping. Pt denies pain. Midline noted to R upper arm- 2 lumen, infusing IVF TKVO. R chest permacath noted. No headache, dizziness, chest pain or N+T. Edema noted to L arm. Lungs clear. No sob/cough noted. RA 93%. BSx4. Pt denies nausea. Void minimal- pt on dialysis. Dressing noted to R foot. Bedrest. VSS. Med accepting. Will continue to monitor.
[2021-05-30] MEDS: DORZOLAMIDE HCL/TIMOLOL MAL. 10 ML EYE DROPS (COSOPT) EACH EYE SCH ×2 (08:19→21:26)
[2021-05-30] MEDS: hydrALAZINE HCL 25 MG TABLET PO SCH ×3 (08:20→21:25)
[2021-05-30] MEDS: cloNIDine HCL 0.2 MG TABLET PO SCH ×2 (08:20→17:00)
[2021-05-30] MEDS: TAMSULOSIN HCL 0.4 MG CAP PO SCH (08:20)
[2021-05-30] MEDS: VERAPAMIL HCL 120 MG TABLET.SA PO SCH ×2 (08:20→21:25)
[2021-05-30] MEDS: CEFEPIME 0.5 GM in D5W 50 ML IV SCH (11:41)
[2021-05-30 12:00] VITALS: BP_SYST 121
--- NOTE | 2021-05-30 12:00 | NUR ---
Pt refusing blood sugar check. Pt pulling arm away stating "you guys are up to some funny business." News Editor attempted three times, unsuccessful.
[2021-05-30 16:34] VITALS: BP_SYST 115
[2021-05-30] MEDS: EPOETIN ALFA-EPBX 4,000 UNITS/ML VIAL SUBCUT SCH (16:40)
--- NOTE | 2021-05-30 16:45 | NUR ---
Pt refusing blood sugar check. Pt pulling arm away stating "you guys are up to some funny business." Bender Hand attempted twice, unsuccessful.
--- NOTE | 2021-05-30 17:11 | NUR ---
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 CHG bath complete.
[2021-05-30 18:11] LABS: ANION GAP 14 (5-15); CALCIUM 9.2 mg/dL (8.4-11.0); CHLORIDE 92 mmol/L (98-107); GLUCOSE 152 mg/dL (70-99); POTASSIUM 5.5 mmol/L (3.5-5.1); SODIUM SERUM 130 mmol/L (136-145); UREA NITROGEN, BLOOD 90 mg/dL (8-21)
[2021-05-30 18:14] LABS: CREATININE 9.88 mg/dL (0.55-1.30)
[2021-05-30 18:32] LABS: ALANINE AMINOTRANSFERASE 86 U/L (12-78); ALBUMIN 2.3 g/dL (3.4-4.8); ASPARTATE AMINOTRANSFERASE 152 U/L (10-37); TOTAL BILIRUBIN 0.6 mg/dL (0.0-1.0)
--- NOTE | 2021-05-30 18:34 | NUR ---
Pt arrived back to floor- Pt hyperkalemic- Dr. Lyons cancelled surgery. Paging Dr. Knowles (covering for Dr. Hoskins) for dialysis orders.
--- NOTE | 2021-05-30 18:42 | NUR ---
Ro called for puree diet.
--- NOTE | 2021-05-30 18:42 | NUR ---
Ro called to bring pt a puree diet to the nursing station in the event the doctor orders to resume diet since surgery is cancelled due to hyperkalemia.
[2021-05-30 21:25] VITALS: BP_SYST 165
[2021-05-30] MEDS: ATORVASTATIN 20 MG TABLET PO SCH (21:26)
[2021-05-30 23:54] VITALS: BP_SYST 150
[2021-05-31 03:20] VITALS: BP_SYST 155
[2021-05-31] MEDS: NORMAL SALINE 5 ML DISP.SYRIN IVF SCH ×3 (05:58→22:03)
[2021-05-31] MEDS: LEVOTHYROXINE SODIUM 0.15 MG TABLET PO SCH (06:02)
[2021-05-31] MEDS: DORZOLAMIDE HCL/TIMOLOL MAL. 10 ML EYE DROPS (COSOPT) EACH EYE SCH ×2 (08:06→22:02)
[2021-05-31] MEDS: TAMSULOSIN HCL 0.4 MG CAP PO SCH (08:07)
[2021-05-31] MEDS: cloNIDine HCL 0.2 MG TABLET PO SCH ×2 (08:07→16:40)
[2021-05-31] MEDS: FAMOTIDINE 20 MG TABLET PO SCH (08:07)
[2021-05-31] MEDS: VERAPAMIL HCL 120 MG TABLET.SA PO SCH ×2 (08:07→22:01)
[2021-05-31] MEDS: hydrALAZINE HCL 25 MG TABLET PO SCH ×3 (08:08→22:02)
[2021-05-31 08:14] LABS: BASOPHILS % (AUTO) 0.3 % (0.0-2.0); EOSINOPHILS # (AUTO) 0.3 K/uL (0.0-0.4); EOSINOPHILS % (AUTO) 1.7 % (0.0-4.0); HEMATOCRIT 32.9 % (36-54); HEMOGLOBIN 10.5 g/dL (14.0-18.0); LYMPHOCYTES # (AUTO) 1.3 K/uL (1.0-5.5); MEAN CORPUSCULAR HEMOGLOBIN 27 pg (27-31); MEAN CORPUSCULAR HGB CONC 32 % (32-36); MEAN CORPUSCULAR VOLUME 86 fL (79.0-98.0); MONOCYTES # (AUTO) 1.1 K/uL (0.0-1.0); NEUTROPHILS # (AUTO) 13.1 K/uL (1.8-7.7); PLATELET COUNT (AUTO) 355 K/uL (130-430); RED BLOOD CELL COUNT(AUTO) 3.83 MIL/uL (4.2-6.2); RED CELL DISTRIBUTION WIDTH 17.4 % (9.0-15.0); WHITE BLOOD COUNT (AUTO) 15.8 K/uL (4.8-10.8)
[2021-05-31 08:45] VITALS: BP_SYST 139
--- NOTE | 2021-05-31 08:45 | NUR ---
Rec'd pt A+O x1, laying in bed at 0700 sleeping. Pt denies pain. Midline noted to R upper arm- 2 lumen- S/L. R chest permacath noted. No headache, dizziness, chest pain or N+T. Edema noted to L arm. Lungs clear, diminished. No sob/cough noted. RA 98%. BSx4. Pt denies nausea. Void minimal- pt on dialysis. Dressing noted to R foot. Bedrest. VSS. Med accepting. Will continue to monitor.
--- NOTE | 2021-05-31 10:03 | NUR ---
Dialysis nurse here to initiate dialysis.
[2021-05-31] MEDS ORDERED: HEPARIN SODIUM,PORCINE 5,000 UNITS/ML VIAL IV ONE (10:15)
[2021-05-31 12:21] VITALS: BP_SYST 124
--- NOTE | 2021-05-31 13:04 | NUR ---
PATIENT WAS UNAVAILABLE FOR TREATMENT TODAY DUE TO DIALYSIS TREATMENT. PLAN: ATTEMPT TOMORROW.
[2021-05-31] MEDS: CEFEPIME 0.5 GM in D5W 50 ML IV SCH (13:05)
--- NOTE | 2021-05-31 16:00 | NUR ---
Nutrition F/U Admitting Diagnosis SOB Reviewed Pertinent Medical/Surgical Hx Medical Record Medical History Comment: PMH: ESRD, DM, HTN and possible early dementia per physician notes. Pt also found w/ gangrene of R toes. 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 1:1 feeder and full aspiration precautions SARS-CoV-2 Ag (Rapid) Negative 05/16, Negative 05/24 Subjective Information: RD bedside visit deferred d/t high RD load. Per EMR review, pt is awaiting surgical decision/cardiology clearance for possible R BKA as they are suspecting a foot infection d/t WBC trending up; pureed diet was restarted today; pt is RA; PO intake average of 100% x3 meal records since 05/28; last BM x1 05/30; Sharad scale: 14 w/ dressing CDI to R toe; pt continues on HD. Pt would benefit from wound healing modular to optimize wound healing process. Current Diet Order/Nutrition Support: Pureed x0 days Patient/Significant Other Unable To Verbalize Education Provided Not Indicated Pertinent Medications: cefepime, morphine, retacrit, lipitor, SSI, pepcid, synthroid Pertinent Labs: 05/31: WBC 15.8 H; 05/30: Na 130 L, K 5.5 H, BUN 90 H, CRE 9.88 H, BG 152 H, Phos 152 H; AST 152 H, ALB 2.3 L, Protein 8.2 WNL; 05/28: Phos 9.3 H, Mg 2.6 H; CRP 19.4 H Height (Feet) 6 feet Height (Inches) 1.00 inches (*NEW) Weight (Pounds) 180 pounds; 177#/80.3 kg (05/29) -- note 3# wt loss, may be d/t fluid shifts a/w ESRD 05/25: 182.6 # (*NEW) Weight (Calculated Kilograms) 81.476140 kilograms 05/25: 83 kg (*NEW) Body Mass Index 23.75 kg/m2 05/25: 24.1 kg/mw (*NEW) %IBW 98 05/25: 99% [place]/Adjusted Body Weight 184#/84 Recent Weight Change Unable to verify Weight Status Appropriate Food Allergies Unable to verify Usual Diet At Home Regular per nursing nutritional screening Current % PO Fair (50-74%) Estimated Energy Expenditure (kcals/day) 5309-6949 (30-35 kcal/kg CBW d/t ESRD/HD) Estimated Protein Required (g/day) 98-123 (1.2-1.5 gm/kg CBW d/t ESRD/HD) Estimated Fluid Required (l/day) Per physician d/t ESRD Problem/Etiology/Signs/Symptoms Inadequate oral intake r/t increased lethargy AEB PO intake <25% and refusing meals. (*Improving) Altered nutrition-related labs R/T endocrine and renal dysfunction AEB abnormal Na, K, BG, POC BG, BUN, and CRE lab values. (*Ongoing) Expected Outcomes/Goals - Monitor appetite and PO intakes w/ goal of pt meeting >80% of estimated nutritional needs, labs trending WNL, normal GI function, and skin integrity/wt maintenance Dietitian Recommendations * Pureed, Renal, NTL, Agustín BID (Nepro TID and Agustín BID together yield 1440 kcal/day, 62 gm protein/day) Follow Up High Risk: 2-3 days
--- NOTE | 2021-05-31 16:10 | NUR ---
Dietitian Recommendations * Pureed, Renal, NTL, Agustín BID (Nepro TID and Agustín BID together yield 1440 kcal/day, 62 gm protein/day) LP, RD Please refer to Nutrition F/U for details.
[2021-05-31 18:03] VITALS: BP_SYST 135
--- NOTE | 2021-05-31 18:33 | NUR ---
Pt resting in bed. No voiced concerns. Call taylor in reach. Bed in low position. Will continue to monitor.
[2021-05-31 19:56] VITALS: BP_SYST 150
[2021-05-31] MEDS: ATORVASTATIN 20 MG TABLET PO SCH (22:00)
[2021-06-01] MEDS: INSULIN REGULAR, HUMAN 100 UNITS/ML, 10 ML VIAL (humuLIN R) SUBCUT PRN (00:18)
--- NOTE | 2021-06-01 05:50 | NUR ---
RN AND PRINCIPAL SYSTEM SOFTWARE ENGINEER CLEANED AND REPOSITION PT, OFFERED PAIN MEDS, PT REFUSED AND SAID SHE'S OK. NO ISSUES AND CONCERN NOTED AT THIS TIME, PLACE CALL LIGHT WITHIN REACH, PT THANKFUL FOR THE CARE GIVEN.
[2021-06-01] MEDS: LEVOTHYROXINE SODIUM 0.15 MG TABLET PO SCH (06:03)
[2021-06-01] MEDS: NORMAL SALINE 5 ML DISP.SYRIN IVF SCH ×3 (06:03→23:08)
--- NOTE | 2021-06-01 07:25 | NUR ---
OPENING NOTES: PATIENT IS RESTING IN BED. NO ADDITIONAL DISTRESS NOTED. AAOX2 TO PERSON AND PLACE WITH EPISODE OF FORGETFULNESS AND CONFUSION. BED IN LOW AND LOCK POSITION. BED ALARM ON. CALL LIGHT WITHIN REACH. EXPLAINED POC AND PATIENT VERBALIZED UNDERSTANDING. WILL CONT TO MONITOR.
[2021-06-01 07:35] LABS: BASOPHILS # (AUTO) 0.1 K/uL (0.0-0.2); BASOPHILS % (AUTO) 0.4 % (0.0-2.0); EOSINOPHILS # (AUTO) 0.2 K/uL (0.0-0.4); EOSINOPHILS % (AUTO) 1.2 % (0.0-4.0); HEMATOCRIT 31.7 % (36-54); HEMOGLOBIN 10.1 g/dL (14.0-18.0); LYMPHOCYTES # (AUTO) 1.1 K/uL (1.0-5.5); LYMPHOCYTES % (AUTO) 7.5 % (20.5-51.5); MEAN CORPUSCULAR HEMOGLOBIN 27 pg (27-31); MEAN CORPUSCULAR HGB CONC 32 % (32-36); MEAN CORPUSCULAR VOLUME 85 fL (79.0-98.0); MONOCYTES # (AUTO) 1.4 K/uL (0.0-1.0); MONOCYTES % (AUTO) 9.4 % (1.7-9.3); NEUTROPHILS # (AUTO) 11.8 K/uL (1.8-7.7); NEUTROPHILS % (AUTO) 81.5 % (40.0-70.0); PLATELET COUNT (AUTO) 297 K/uL (130-430); RED BLOOD CELL COUNT(AUTO) 3.72 MIL/uL (4.2-6.2); RED CELL DISTRIBUTION WIDTH 17.6 % (9.0-15.0); WHITE BLOOD COUNT (AUTO) 14.5 K/uL (4.8-10.8)
[2021-06-01] MEDS: hydrALAZINE HCL 25 MG TABLET PO SCH ×3 (09:00→21:00)
[2021-06-01] MEDS: TAMSULOSIN HCL 0.4 MG CAP PO SCH (09:00)
[2021-06-01] MEDS: cloNIDine HCL 0.2 MG TABLET PO SCH ×2 (09:00→17:00)
[2021-06-01] MEDS: VERAPAMIL HCL 120 MG TABLET.SA PO SCH ×2 (09:00→21:00)
--- NOTE | 2021-06-01 09:30 | NUR ---
WOUND: CLEANSED SACRAL/BUTTOCK/SCROTUM (BOTTOM) WOUND (ST 2) WITH SOAP AND WATER. APPLIED SKIN BARRIER CREAM AND COVER WITH OPTIFORM TO SACRAL AREA.
[2021-06-01 09:31] LABS: ANION GAP 16 (5-15); CALCIUM 9.5 mg/dL (8.4-11.0); CHLORIDE 92 mmol/L (98-107); GLUCOSE 119 mg/dL (70-99); POTASSIUM 4.6 mmol/L (3.5-5.1); SODIUM SERUM 130 mmol/L (136-145); UREA NITROGEN, BLOOD 62 mg/dL (8-21)
[2021-06-01] MEDS: DORZOLAMIDE HCL/TIMOLOL MAL. 10 ML EYE DROPS (COSOPT) EACH EYE SCH ×2 (10:17→21:00)
[2021-06-01] MEDS: CEFEPIME 0.5 GM in D5W 50 ML IV SCH (11:57)
--- NOTE | 2021-06-01 12:23 | NUR ---
LABS ENGINEER OF SYSTEM DEVELOPMENT. UNABLE TO DRAW LABS, HARD STICK. WILL ATTEMPT LATER
--- NOTE | 2021-06-01 13:15 | NUR ---
BUN/CREA: DR FARRELL AT THE BEDSIDE TALKING TO THE PATIENT'S SON. MADE AWARE OF BUN AND CREA RESULT. NO NEW ORDERS. OK TO GO TO SURGERY TODAY. OH WILL DOING THE SURGERY AT 1700 TODAY. CONT WITH NPO.
--- NOTE | 2021-06-01 14:00 | NUR ---
BED BATH: BED BATH AND CHG BATH PERFORMED.
--- NOTE | 2021-06-01 14:30 | NUR ---
PATIENT'S DAUGHTER AT THE BEDSIDE.
--- NOTE | 2021-06-01 15:00 | NUR ---
PATIENT'S SON AT THE BEDSIDE.
[2021-06-01 15:56] LABS: VANCOMYCIN,RANDOM 19.6 ug/mL
[2021-06-01] MEDS: EPOETIN ALFA-EPBX 4,000 UNITS/ML VIAL SUBCUT SCH (17:00)
--- NOTE | 2021-06-01 17:45 | NUR ---
OR FOR R BKA: LEFT THE UNIT IN A STABLE CONDITION FOR SURGERY (R) BKA.
[2021-06-01] MEDS ORDERED: fentaNYL CITRATE/PF 100 MCG/2 ML AMP IVP PRN ×2 (18:15)
[2021-06-01] MEDS ORDERED: ONDANSETRON HCL 4 MG/2 ML VIAL IVP PRN (18:15)
[2021-06-01] MEDS ORDERED: METOCLOPRAMIDE HCL 10 MG/2 ML VIAL IVP PRN (18:15)
--- NOTE | 2021-06-01 19:30 | NUR ---
CLOSING NOTES: GAVE SBAR REPORT TO NEXT SHIFT RN. PATIENT STILL OUT OF THE UNIT AND HAVE NOT RECEIVE REPORT FROM PACU.
--- NOTE | 2021-06-01 20:30 | NUR ---
report received from PACU ISH CHAVEZ RN
[2021-06-01] MEDS: ATORVASTATIN 20 MG TABLET PO SCH (21:00)
[2021-06-02 00:07] VITALS: BP_SYST 150
[2021-06-02 05:39] VITALS: BP_SYST 111
[2021-06-02] MEDS: NORMAL SALINE 5 ML DISP.SYRIN IVF SCH ×3 (05:44→22:03)
[2021-06-02] MEDS: LEVOTHYROXINE SODIUM 0.15 MG TABLET PO SCH (07:39)
--- NOTE | 2021-06-02 07:43 | NUR ---
PT RESTING IN BED, FBS 99, LEVOTHYROXINE ADMINISTERED AT THIS TIME,
[2021-06-02 08:00] VITALS: BP_SYST 107
[2021-06-02] MEDS: cloNIDine HCL 0.2 MG TABLET PO SCH ×2 (09:00→17:00)
[2021-06-02] MEDS: hydrALAZINE HCL 25 MG TABLET PO SCH ×3 (09:00→22:02)
[2021-06-02] MEDS: VERAPAMIL HCL 120 MG TABLET.SA PO SCH ×2 (09:00→22:02)
--- NOTE | 2021-06-02 10:20 | NUR ---
HIGH ALERT NOTE: Called Dr. SALDANA back at 1023am identified within the medical roster to verify physician authenticity.
[2021-06-02] MEDS ORDERED: HEPARIN SODIUM,PORCINE 5,000 UNITS/ML VIAL MC ONE (10:30)
--- NOTE | 2021-06-02 10:30 | NUR ---
NOTE PT'S DIALYSIS WAS STOPPED BY [facility] AT 1010AM (STARTED AT 0930AM). PT'S VITAL SIGNS WERE LOW. SBP WAS 110/47 HR WAS 47-110. TEMP WAS 99.8-99.4. DR SALDANA WAS CALLED AND NOTIFIED BY FIRST RESPONDER. DR SALDANA WAS CALLED - ORDERS FOR DIALYSIS TOMORROW AND LABS/CULTURES WERE ORDERED. MEDICATIONS AND BREAKFAST WERE HELD PT WAS DROWSY AND POSSIBLE ASPIRATION IF PT WAS FED. CALL LIGHT WITHIN REACH.
[2021-06-02] MEDS: TAMSULOSIN HCL 0.4 MG CAP PO SCH (10:37)
[2021-06-02] MEDS: FAMOTIDINE 20 MG TABLET PO SCH (10:37)
[2021-06-02] MEDS: DORZOLAMIDE HCL/TIMOLOL MAL. 10 ML EYE DROPS (COSOPT) EACH EYE SCH ×2 (10:38→22:03)
[2021-06-02] MEDS: CEFEPIME 0.5 GM in D5W 50 ML IV SCH (10:40)
[2021-06-02 10:52] LABS: BASOPHILS % (AUTO) 0.3 % (0.0-2.0); EOSINOPHILS # (AUTO) 0.2 K/uL (0.0-0.4); HEMATOCRIT 25.7 % (36-54); HEMOGLOBIN 8.1 g/dL (14.0-18.0); LYMPHOCYTES % (AUTO) 6.4 % (20.5-51.5); MEAN CORPUSCULAR HEMOGLOBIN 27 pg (27-31); MEAN CORPUSCULAR HGB CONC 32 % (32-36); MEAN CORPUSCULAR VOLUME 85 fL (79.0-98.0); MONOCYTES # (AUTO) 0.8 K/uL (0.0-1.0); NEUTROPHILS # (AUTO) 14.1 K/uL (1.8-7.7); NEUTROPHILS % (AUTO) 87.3 % (40.0-70.0); PLATELET COUNT (AUTO) 294 K/uL (130-430); RED BLOOD CELL COUNT(AUTO) 3.03 MIL/uL (4.2-6.2); RED CELL DISTRIBUTION WIDTH 17.3 % (9.0-15.0); WHITE BLOOD COUNT (AUTO) 16.1 K/uL (4.8-10.8)
[2021-06-02 11:02] LABS: ANION GAP 16 (5-15); CALCIUM 8.8 mg/dL (8.4-11.0); CHLORIDE 95 mmol/L (98-107); GLUCOSE 122 mg/dL (70-99); POTASSIUM 5.1 mmol/L (3.5-5.1); SODIUM SERUM 133 mmol/L (136-145); UREA NITROGEN, BLOOD 70 mg/dL (8-21)
[2021-06-02 11:05] LABS: CREATININE 9.38 mg/dL (0.55-1.30)
[2021-06-02 12:00] VITALS: BP_SYST 127
--- NOTE | 2021-06-02 12:50 | NUR ---
VITAL SIGNS ARE SLOWLY IMPROVING. PT STILL VERY DROWSY AND NOT EASILY AROUSABLE AT THIS TIME, LUNCH HELD. DR SALDANA CAME TO FLOOR/BEDSIDE TO ASSESS PT.
[2021-06-02] MEDS ORDERED: SODIUM POLYSTYRENE SULFONATE 15 GM/60 ML UDBTL GT ONE (13:15)
[2021-06-02 14:11] LABS: ALBUMIN 1.9 g/dL (3.4-4.8); BILIRUBIN,DIRECT 0.2 mg/dL (0.0-0.3); TOTAL BILIRUBIN 0.6 mg/dL (0.0-1.0)
[2021-06-02] MEDS ORDERED: ENOXAPARIN SODIUM 30 MG/0.3 ML SYRINGE SUBCUT ONE (15:00)
--- NOTE | 2021-06-02 15:00 | NUR ---
Note Pt has no GT site. Pt drowsy and sleepy all shift. Pt refused to drink the Kayexalate PO at this time.
[2021-06-02 16:00] VITALS: BP_SYST 107
--- NOTE | 2021-06-02 18:25 | NUR ---
Note Attempted to feed pt lunch and dinner. Food was put in pt's mouth - pt does not swallow food or drink, needs a lot of encouragement to remember to swallow. and pt falls asleep. Pt was checked on a1' and PRN all shift for needs and care. Pt's bed in low position and bed alarm on. Pt next to nurses' station for close observation. YARI midline intact and patent. No needs noted at this time. Call light within reach. Right leg stump dressing has been CDI all shift. Pt's right leg elevated on pillow all shift. No needs noted. Call light within reach.
[2021-06-02] MEDS: ATORVASTATIN 20 MG TABLET PO SCH (22:01)
[2021-06-02 23:44] VITALS: BP_SYST 126
[2021-06-03] MEDS: NORMAL SALINE 5 ML DISP.SYRIN IVF SCH ×3 (05:47→21:46)
[2021-06-03] MEDS: INSULIN REGULAR, HUMAN 100 UNITS/ML, 10 ML VIAL (humuLIN R) SUBCUT PRN (05:50)
[2021-06-03] MEDS: LEVOTHYROXINE SODIUM 0.15 MG TABLET PO SCH (06:31)
--- NOTE | 2021-06-03 07:30 | NUR ---
RECEIVED PT FROM ANNA REDD. ASSUMED ALL CARE.
[2021-06-03 08:00] VITALS: BP_SYST 119
[2021-06-03] MEDS: VERAPAMIL HCL 120 MG TABLET.SA PO SCH ×3 (09:00→21:47)
[2021-06-03] MEDS: cloNIDine HCL 0.2 MG TABLET PO SCH ×2 (09:00→17:00)
[2021-06-03] MEDS: TAMSULOSIN HCL 0.4 MG CAP PO SCH (09:00)
[2021-06-03] MEDS: hydrALAZINE HCL 25 MG TABLET PO SCH ×4 (09:00→21:47)
[2021-06-03 09:23] LABS: BASOPHILS # (AUTO) 0.2 K/uL (0.0-0.2); BASOPHILS % (AUTO) 1.1 % (0.0-2.0); EOSINOPHILS # (AUTO) 0.2 K/uL (0.0-0.4); EOSINOPHILS % (AUTO) 1.8 % (0.0-4.0); HEMATOCRIT 29.7 % (36-54); HEMOGLOBIN 9.3 g/dL (14.0-18.0); LYMPHOCYTES # (AUTO) 0.8 K/uL (1.0-5.5); MEAN CORPUSCULAR HEMOGLOBIN 27 pg (27-31); MEAN CORPUSCULAR HGB CONC 31 % (32-36); MEAN CORPUSCULAR VOLUME 85 fL (79.0-98.0); MONOCYTES # (AUTO) 1.1 K/uL (0.0-1.0); MONOCYTES % (AUTO) 8.3 % (1.7-9.3); NEUTROPHILS # (AUTO) 11.1 K/uL (1.8-7.7); NEUTROPHILS % (AUTO) 82.8 % (40.0-70.0); PLATELET COUNT (AUTO) 344 K/uL (130-430); RED BLOOD CELL COUNT(AUTO) 3.48 MIL/uL (4.2-6.2); RED CELL DISTRIBUTION WIDTH 17.2 % (9.0-15.0); WHITE BLOOD COUNT (AUTO) 13.5 K/uL (4.8-10.8)
[2021-06-03 10:00] LABS: ANION GAP 15 (5-15); CALCIUM 9.5 mg/dL (8.4-11.0); CHLORIDE 94 mmol/L (98-107); GLUCOSE 151 mg/dL (70-99); SODIUM SERUM 131 mmol/L (136-145); UREA NITROGEN, BLOOD 88 mg/dL (8-21)
[2021-06-03 10:06] LABS: ALANINE AMINOTRANSFERASE 66 U/L (12-78); ALBUMIN 1.9 g/dL (3.4-4.8); ASPARTATE AMINOTRANSFERASE 113 U/L (10-37); TOTAL BILIRUBIN 0.3 mg/dL (0.0-1.0)
[2021-06-03 10:20] LABS: POTASSIUM 5.8 mmol/L (3.5-5.1)
[2021-06-03] MEDS: DORZOLAMIDE HCL/TIMOLOL MAL. 10 ML EYE DROPS (COSOPT) EACH EYE SCH ×2 (10:22→22:04)
[2021-06-03] MEDS: ENOXAPARIN SODIUM 30 MG/0.3 ML SYRINGE SUBCUT SCH (10:29)
--- NOTE | 2021-06-03 11:05 | NUR ---
DR. LAYTON MADE AWARE OF CRITICAL HCT, AND PT GROGGY AND NOT RESPONSIVE PRIOR DAY. PT ORAL MEDS BEING HELD DUE TO POCKETING FOOD, PT HAS INCREASE RUE EDEMA. SHE STATED SHE WILL ORDER U/S OF YARI.
[2021-06-03] MEDS: CEFEPIME 0.5 GM in D5W 50 ML IV SCH (11:23)
--- NOTE | 2021-06-03 11:31 | NUR ---
BLOOD SUGAR 151, PT GROGGY AND POCKETING FOOD, MAINTAINING NPO AT THIS TIME. INSULIN COVERAGE WILL BE HELD.
[2021-06-03 11:51] VITALS: BP_SYST 116
[2021-06-03] MEDS ORDERED: MORPHINE 2 MG/ML INJ. SYRINGE IVP PRN (12:00)
[2021-06-03] MEDS ORDERED: NALOXONE HCL 0.4 MG/ML AMP (NARCAN) IVP PRN (12:00)
[2021-06-03 15:21] VITALS: BP_SYST 111
--- NOTE | 2021-06-03 16:06 | NUR ---
PT'S B/P MED HELD DUE TO AWAITING HD. SPOKE WITH ELEANOR GALINDO WHO STATED HD CALLED AND WILL BE HER WITHIN 15MIN. PT SON AT BEDSIDE AND MADE AWARE.
--- NOTE | 2021-06-03 16:15 | NUR ---
PT RECEIVING HD AT THIS TIME. SON AT BEDSIDE.
[2021-06-03 16:33] LABS: PHOSPHORUS 8.5 mg/dL (2.7-4.5)
[2021-06-03] MEDS ORDERED: ALBUMIN HUMAN 25% 100 ML IV ONE (17:15)
--- NOTE | 2021-06-03 17:26 | NUR ---
ALBUMIN 255 100ML GIVEN BY DIALYSIS NURSE ANNA DESOUZA. FOR HYPTENSION. SCHEDULED B/P MED HELD.
[2021-06-03] MEDS ORDERED: HEPARIN SODIUM,PORCINE 5,000 UNITS/ML VIAL IVP PRN (18:45)
--- NOTE | 2021-06-03 18:54 | NUR ---
RECEIVED PT FROM ANNA REDD. ASSUMED ALL CARE. Addendum: 06/03/21 at 1855 by Eloisa Wiley RN WRONG TIME.
--- NOTE | 2021-06-03 19:43 | NUR ---
PT S/P HD 1.3 LITERS OUT. ENDORSED ALL CARE TO ANNA WELDON. ALL QUESTIONS AND CONCERNS ADDRESSED. INFORMED HIM THAT WE STILL WAITING FOR RESULTS OF U/S R EXTREMITY. PT HAS BEEN NPO ALL DAY TO LETHARGY AND POCKETING FOOD. SHIRAZ VERBALIZED UNDERSTANDING.
--- NOTE | 2021-06-03 19:45 | NUR ---
ENDORSED ALL CARE TO ANNA WELDON. ALL QUESTIONS AND CONCERNS ADDRESSED. INFORMED SHIRAZ THAT PT HAS PENDING PICC LINE PLACEMENT AND PT IS TO RECEIVED ONE UNIT PRBCS. SHIRAZ VERBALIZED UNDERSTANDING. Addendum: 06/03/21 at 1947 by Thirty security patrol driver WRONG PT.
[2021-06-03] MEDS: ATORVASTATIN 20 MG TABLET PO SCH ×2 (21:47→22:23)
--- NOTE | 2021-06-03 22:23 | NUR ---
Able to speak with Dr. Patel and informed that pt is still lethargic and unable to take meds. Informed re: latest V/S. Ordered Hydralazine IV 5 mg if SBP more than 160 mmHg. Patient can be awaken with verbal stimuli.
[2021-06-03] MEDS ORDERED: hydrALAZINE HCL 20 MG/ML VIAL IVP PRN (22:45)
[2021-06-04] VITALS (7 sets, daily range): BP systolic 124–164
[2021-06-04] MEDS: NORMAL SALINE 5 ML DISP.SYRIN IVF SCH ×3 (05:25→21:04)
[2021-06-04] MEDS: LEVOTHYROXINE SODIUM 0.15 MG TABLET PO SCH (06:06)
--- NOTE | 2021-06-04 07:30 | NUR ---
RECEIVED PT FROM ANNA WELDON. ASSUMED ALL CARE.
[2021-06-04] MEDS: VERAPAMIL HCL 120 MG TABLET.SA PO SCH ×2 (09:00→20:53)
[2021-06-04] MEDS: TAMSULOSIN HCL 0.4 MG CAP PO SCH (09:00)
[2021-06-04] MEDS: FAMOTIDINE 20 MG TABLET PO SCH (09:00)
[2021-06-04] MEDS: hydrALAZINE HCL 25 MG TABLET PO SCH ×3 (09:00→20:53)
[2021-06-04] MEDS: cloNIDine HCL 0.2 MG TABLET PO SCH ×2 (09:00→17:00)
[2021-06-04 09:42] LABS: BASOPHILS # (AUTO) 0.1 K/uL (0.0-0.2); BASOPHILS % (AUTO) 0.4 % (0.0-2.0); EOSINOPHILS # (AUTO) 0.2 K/uL (0.0-0.4); HEMATOCRIT 26.8 % (36-54); HEMOGLOBIN 8.4 g/dL (14.0-18.0); LYMPHOCYTES % (AUTO) 8.5 % (20.5-51.5); MEAN CORPUSCULAR HEMOGLOBIN 27 pg (27-31); MEAN CORPUSCULAR HGB CONC 32 % (32-36); MEAN CORPUSCULAR VOLUME 85 fL (79.0-98.0); MONOCYTES # (AUTO) 1.3 K/uL (0.0-1.0); MONOCYTES % (AUTO) 10.7 % (1.7-9.3); NEUTROPHILS # (AUTO) 9.2 K/uL (1.8-7.7); NEUTROPHILS % (AUTO) 78.4 % (40.0-70.0); PLATELET COUNT (AUTO) 331 K/uL (130-430); RED BLOOD CELL COUNT(AUTO) 3.14 MIL/uL (4.2-6.2); RED CELL DISTRIBUTION WIDTH 17.6 % (9.0-15.0); WHITE BLOOD COUNT (AUTO) 11.7 K/uL (4.8-10.8)
[2021-06-04] MEDS: DORZOLAMIDE HCL/TIMOLOL MAL. 10 ML EYE DROPS (COSOPT) EACH EYE SCH ×2 (09:47→20:52)
[2021-06-04] MEDS: ENOXAPARIN SODIUM 30 MG/0.3 ML SYRINGE SUBCUT SCH (09:50)
[2021-06-04 10:11] LABS: ALANINE AMINOTRANSFERASE 66 U/L (12-78); ALBUMIN 2.2 g/dL (3.4-4.8); ASPARTATE AMINOTRANSFERASE 108 U/L (10-37); CALCIUM 9.5 mg/dL (8.4-11.0); GLUCOSE 152 mg/dL (70-99); TOTAL BILIRUBIN 0.5 mg/dL (0.0-1.0); UREA NITROGEN, BLOOD 54 mg/dL (8-21)
--- NOTE | 2021-06-04 10:46 | NUR ---
ATTENDING MD DR BORJA WAS CALLED, RE: ORDER FOR LABS. SPOKE TO RAFITA.
--- NOTE | 2021-06-04 11:04 | NUR ---
REPORTED TO DR. Barger PT'S WAS POCKETING FOOD YESTERDAY AND WAS MORE ALTERERED THAN BASELINE, PT IS HAS BETTER MENTATION TODAY BUT IS STILL POCKETING FOOD TODAY. PT HAS NOT HAD FLUIDS OR NUTRITION FOR OVER 24 HOURS. RECEIVED ORDER FOR SWALLOW EVAL STAT, C/T HEAD STAT, D5 NS AT 70ML/HOUR. ORDERS CARRIED OUT, PT MADE AWARE BUT UNABLE TO VERBALIZE UNDERSTANDING.
[2021-06-04 11:12] LABS: ANION GAP 17 (5-15); CHLORIDE 94 mmol/L (98-107); POTASSIUM 4.4 mmol/L (3.5-5.1); SODIUM SERUM 136 mmol/L (136-145)
--- NOTE | 2021-06-04 11:13 | NUR ---
SPEECH THERAPY WAS CALLED TO [facility], RE: SWALLOWING EVAL. LEFT A MESSAGE ON MADDISON'S CELL PHONE, THE SURVEY CHIEF.
--- NOTE | 2021-06-04 11:23 | NUR ---
JOSE ANGEL SOLIS STATED SHE WILL CONTACT SPEECH THERAPY FOR PT'S SWALLOW EVAL.
[2021-06-04 11:35] LABS: CREATININE 7.85 mg/dL (0.55-1.30)
[2021-06-04] MEDS: D5NS 1,000 ML IV SCH (12:24)
[2021-06-04] MEDS: CEFEPIME 0.5 GM in D5W 50 ML IV SCH (12:25)
--- NOTE | 2021-06-04 12:45 | NUR ---
PT S/L AND TAKEN FOR CT SCAN OF HEAD AT THIS TIME.
[2021-06-04 13:22] LABS: VANCOMYCIN,RANDOM 14.3 ug/mL
--- NOTE | 2021-06-04 17:03 | NUR ---
RECEIVED ORDER FOR HD FROM BUD PT RECEIVING HD AT THIS TIME. PT CREAT IS STILL TOO HIGH
--- NOTE | 2021-06-04 17:20 | NUR ---
PT IS RECEIVING HD AT THIS TIME EPOGEN SQ HELD UNTIL HD COMPLETED.
--- NOTE | 2021-06-04 17:34 | NUR ---
ATTENDING MD LIBRARY CATALOGING TECHNICIAN FOR DR BORJA IS DR DA SILVA. HE WAS PAGED RE: RESULTS OF THE SWALLOWING EVAL. SPOKE TO DEWAYNE.
--- NOTE | 2021-06-04 17:47 | NUR ---
ST EVALUATION COMPLETED. ST TX NOT INDICATED AT THIS TIME. RECOMMEND CONTINUE NPO WITH ALTERNATIVE MEANS OF NUTRITION DUE TO POOR SWALLOW FUNCTION AND SAFETY.
[2021-06-04] MEDS ORDERED: HEPARIN SODIUM,PORCINE 5,000 UNITS/ML VIAL MC ONE (19:00)
--- NOTE | 2021-06-04 19:54 | NUR ---
ENDORSED ALL CARE TO ANNA WELDON. ALL QUESTIONS ADDRESSED. INFORMED HIM PT HAS SCHEDULED EPOGEN SQ THAT WILL NEED TO BE ADMINISTERED AFTER HD IS COMPLETED.
[2021-06-04] MEDS: EPOETIN ALFA-EPBX 4,000 UNITS/ML VIAL SUBCUT SCH (20:51)
[2021-06-04] MEDS: ATORVASTATIN 20 MG TABLET PO SCH (20:54)
[2021-06-05 00:29] VITALS: BP_SYST 155; BP_SYST 166
[2021-06-05] MEDS: D5NS 1,000 ML IV SCH ×2 (03:16→17:41)
[2021-06-05] MEDS: NORMAL SALINE 5 ML DISP.SYRIN IVF SCH ×3 (05:29→21:18)
[2021-06-05 05:32] VITALS: BP_SYST 154
[2021-06-05] MEDS: LEVOTHYROXINE SODIUM 0.15 MG TABLET PO SCH (06:04)
[2021-06-05 08:00] VITALS: BP_SYST 158
[2021-06-05 08:06] LABS: BASOPHILS # (AUTO) 0.1 K/uL (0.0-0.2); BASOPHILS % (AUTO) 0.7 % (0.0-2.0); EOSINOPHILS # (AUTO) 0.2 K/uL (0.0-0.4); EOSINOPHILS % (AUTO) 1.9 % (0.0-4.0); HEMOGLOBIN 8.5 g/dL (14.0-18.0); LYMPHOCYTES % (AUTO) 8.7 % (20.5-51.5); MEAN CORPUSCULAR HEMOGLOBIN 27 pg (27-31); MEAN CORPUSCULAR HGB CONC 32 % (32-36); MEAN CORPUSCULAR VOLUME 85 fL (79.0-98.0); MONOCYTES # (AUTO) 1.1 K/uL (0.0-1.0); MONOCYTES % (AUTO) 10.4 % (1.7-9.3); NEUTROPHILS # (AUTO) 8.6 K/uL (1.8-7.7); NEUTROPHILS % (AUTO) 78.3 % (40.0-70.0); PLATELET COUNT (AUTO) 333 K/uL (130-430); RED BLOOD CELL COUNT(AUTO) 3.17 MIL/uL (4.2-6.2); RED CELL DISTRIBUTION WIDTH 17.2 % (9.0-15.0)
[2021-06-05 08:17] LABS: ALANINE AMINOTRANSFERASE 58 U/L (12-78); ANION GAP 8 (5-15); ASPARTATE AMINOTRANSFERASE 103 U/L (10-37); CHLORIDE 98 mmol/L (98-107); CREATININE 5.64 mg/dL (0.55-1.30); GLUCOSE 175 mg/dL (70-99); POTASSIUM 3.9 mmol/L (3.5-5.1); SODIUM SERUM 134 mmol/L (136-145); TOTAL BILIRUBIN 0.5 mg/dL (0.0-1.0); UREA NITROGEN, BLOOD 33 mg/dL (8-21)
[2021-06-05] MEDS: cloNIDine HCL 0.2 MG TABLET PO SCH ×2 (09:00→17:00)
[2021-06-05] MEDS: TAMSULOSIN HCL 0.4 MG CAP PO SCH (09:00)
[2021-06-05] MEDS: hydrALAZINE HCL 25 MG TABLET PO SCH ×3 (09:00→20:30)
[2021-06-05] MEDS: VERAPAMIL HCL 120 MG TABLET.SA PO SCH ×2 (09:00→20:30)
[2021-06-05] MEDS: DORZOLAMIDE HCL/TIMOLOL MAL. 10 ML EYE DROPS (COSOPT) EACH EYE SCH ×2 (09:07→20:29)
[2021-06-05] MEDS: ENOXAPARIN SODIUM 30 MG/0.3 ML SYRINGE SUBCUT SCH (09:09)
[2021-06-05 09:56] LABS: VANCOMYCIN,RANDOM 11.6 ug/mL
[2021-06-05 12:00] VITALS: BP_SYST 155
--- NOTE | 2021-06-05 12:39 | NUR ---
G I CONSULT REASON-PEG CONSULTING PHYSICIAN-DR MARTINS SPOKE TO DEANA FOR GI CONSULT
[2021-06-05] MEDS ORDERED: VANCOMYCIN HCL 500 MG in NS 100 ML IV ONE (13:00)
--- NOTE | 2021-06-05 13:45 | NUR ---
Nutrition F/U Admitting Diagnosis SOB Reviewed Pertinent Medical/Surgical Hx Medical Record Medical History Comment: PMH: ESRD, DM, HTN and possible early dementia per physician notes. Pt also found w/ gangrene of R toes. 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 1:1 feeder and full aspiration precautions SARS-CoV-2 Ag (Rapid) Negative 05/16, Negative 05/24 Subjective Information: RD bedside visit deferred d/t high RD load. Per EMR Review, pt had ST swallow evaluation 06/04, ST recommended continue NPO with alternative means of nutrition due to poor swallow function and safety; Sharad score 13, wound to lower sacrum, sx incision R. BKA; L. arm non-pitting edema; abd soft and non-distended w/ hypoactive bowel sounds; Last BM x1 05/30; pt was not eating well post-op; last HD 06/04. 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 TF warranted for nutrition support pending PEG placement. Current Diet Order/Nutrition Support: NPO x0 days Patient/Significant Other Unable To Verbalize Education Provided Not Indicated Pertinent Medications: cefepime, morphine, retacrit, lipitor, SSI, pepcid, Synthroid, vancomycin, D5ND at 70 ml/hr x 14 hrs (provides 167 kcals/day), lovenox Pertinent Labs: Na 134 L, BUN 33 H, Cr 5.64 H, BG 175 H, AST 103 H, Alb 2 L, POC BG 166 H, WBC 11 H, H/H 8.5 L/27 L Height (Feet) 6 feet Height (Inches) 1.00 inches Weight (Pounds) 180 pounds; 177#/80.3 kg (05/29) -- note 3# wt loss, may be d/t fluid shifts a/w ESRD 05/25: 182.6 # Weight (Calculated Kilograms) 81.185264 kilograms 05/25: 83 kg Body Mass Index 23.75 kg/m2 05/25: 24.1 kg/mw %IBW 98 05/25: 99% [place]/Adjusted Body Weight 184#/84 Recent Weight Change Unable to verify Weight Status Appropriate Food Allergies Unable to verify Usual Diet At Home Regular per nursing nutritional screening Current % PO Fair (50-74%) Estimated Energy Expenditure (kcals/day) 7414-4215 (30-35 kcal/kg CBW d/t ESRD/HD) Estimated Protein Required (g/day) 98-123 (1.2-1.5 gm/kg CBW d/t ESRD/HD) Estimated Fluid Required (l/day) Per physician d/t ESRD Problem/Etiology/Signs/Symptoms Inadequate oral intake r/t increased lethargy AEB PO intake <25% and refusing meals. (*Not applicable, plan for PEG) Altered nutrition-related labs R/T endocrine and renal dysfunction AEB abnormal Na, K, BG, POC BG, BUN, and CRE lab values. (*Ongoing) Expected Outcomes/Goals - Monitor nutrition support w/ goal of pt meeting >80% of estimated nutritional needs, labs trending WNL, normal GI function, and skin integrity/wt maintenance Dietitian Recommendations * TF: Nepro at 60 ml/hr (goal rate), FWF per dispatcher tugboat Provides: 2549 kcals/day and 113 g protein/day Meetin% of upper end of caloric needs and 92% of upper end of protein needs Follow Up High Risk: 2-3 days
--- NOTE | 2021-06-05 13:46 | NUR ---
Dietitian Recommendations * TF: Nepro at 60 ml/hr (goal rate), FWF per business agent Provides: 2549 kcals/day and 113 g protein/day Meetin% of upper end of caloric needs and 92% of upper end of protein needs Please refer to Nutrition F/U note 06/05/21 for details.
[2021-06-05] MEDS: CEFEPIME 0.5 GM in D5W 50 ML IV SCH (14:22)
[2021-06-05 15:31] VITALS: BP_SYST 142
[2021-06-05] MEDS: INSULIN REGULAR, HUMAN 100 UNITS/ML, 10 ML VIAL (humuLIN R) SUBCUT PRN (17:40)
[2021-06-05] MEDS: ATORVASTATIN 20 MG TABLET PO SCH (20:30)
[2021-06-06] VITALS: BP_SYST 142
[2021-06-06 05:13] VITALS: BP_SYST 132
[2021-06-06] MEDS: NORMAL SALINE 5 ML DISP.SYRIN IVF SCH ×3 (05:20→22:00)
[2021-06-06] MEDS: D5NS 1,000 ML IV SCH ×2 (05:21→21:29)
[2021-06-06] MEDS: LEVOTHYROXINE SODIUM 0.15 MG TABLET PO SCH (06:30)
[2021-06-06] MEDS: INSULIN REGULAR, HUMAN 100 UNITS/ML, 10 ML VIAL (humuLIN R) SUBCUT PRN (06:30)
[2021-06-06 08:00] VITALS: BP_SYST 167
--- NOTE | 2021-06-06 08:00 | NUR ---
Morning note: Pt resting in bed, A/Ox1. No s/s of respiratory or cardiac distress. YARI Midline is clean dry and intact. R chest permatcath dressing is clean, dry and intact. Fall, safety and pressure ulcer precautions in place, call light with in reach, will continue to monitor.
[2021-06-06 08:13] LABS: INR 1.4 (0.80-1.20)
[2021-06-06] MEDS: hydrALAZINE HCL 25 MG TABLET PO SCH ×3 (09:00→21:38)
[2021-06-06] MEDS: FAMOTIDINE 20 MG TABLET PO SCH (09:00)
[2021-06-06] MEDS: TAMSULOSIN HCL 0.4 MG CAP PO SCH (09:00)
[2021-06-06] MEDS ORDERED: PHYTONADIONE 10 MG/ML AMP SUBCUT ONE (09:00)
[2021-06-06] MEDS: VERAPAMIL HCL 120 MG TABLET.SA PO SCH ×2 (09:00→21:39)
[2021-06-06] MEDS ORDERED: CEFAZOLIN 1 GM IVPB PREMIX 50 ML IV ONE (09:00)
[2021-06-06] MEDS: cloNIDine HCL 0.2 MG TABLET PO SCH ×3 (09:00→17:39)
[2021-06-06] MEDS ORDERED: PHYTONADIONE 5 MG in NS 50 ML IV ONE (10:45)
[2021-06-06] MEDS: ENOXAPARIN SODIUM 30 MG/0.3 ML SYRINGE SUBCUT SCH (11:28)
[2021-06-06] MEDS: DORZOLAMIDE HCL/TIMOLOL MAL. 10 ML EYE DROPS (COSOPT) EACH EYE SCH ×2 (11:34→22:34)
[2021-06-06 12:00] VITALS: BP_SYST 139
[2021-06-06] MEDS ORDERED: HEPARIN SODIUM,PORCINE 5,000 UNITS/ML VIAL MC PRN (12:30)
--- NOTE | 2021-06-06 13:27 | NUR ---
RN note: Scan heparin 5,000 x2 for assistant general manager to give.
[2021-06-06 16:00] VITALS: BP_SYST 117
[2021-06-06] MEDS: EPOETIN ALFA-EPBX 4,000 UNITS/ML VIAL SUBCUT SCH (17:40)
[2021-06-06] MEDS: CEFEPIME 0.5 GM in D5W 50 ML IV SCH (17:41)
--- NOTE | 2021-06-06 18:35 | NUR ---
Closing notes: Pt resting in bed, A/Ox1. No s/s of respiratory or cardiac distress. YARI Midline is clean dry and intact. R chest permatcath dressing is clean, dry and intact. Fall, safety and pressure ulcer precautions in place, call light with in reach, will endorse to community youth secretary.
[2021-06-06] MEDS: ATORVASTATIN 20 MG TABLET PO SCH (21:39)
[2021-06-07 00:46] VITALS: BP_SYST 93
[2021-06-07] MEDS: INSULIN REGULAR, HUMAN 100 UNITS/ML, 10 ML VIAL (humuLIN R) SUBCUT PRN (00:54)
[2021-06-07] MEDS: NORMAL SALINE 5 ML DISP.SYRIN IVF SCH ×3 (06:25→22:37)
[2021-06-07] MEDS: LEVOTHYROXINE SODIUM 0.15 MG TABLET PO SCH (06:37)
[2021-06-07] MEDS ORDERED: fentaNYL CITRATE/PF 100 MCG/2 ML AMP ONE (07:10)
[2021-06-07] MEDS ORDERED: MIDAZOLAM HCL 5 MG/5 ML VIAL ONE (07:11)
[2021-06-07] MEDS ORDERED: CEFAZOLIN 1 GM IVPB PREMIX 50 ML IV ONE (07:15)
[2021-06-07 07:27] LABS: INR 1.3 (0.80-1.20); PROTHROMBIN TIME 13.1 SECS (9.5-12.5)
[2021-06-07 08:00] VITALS: BP_SYST 128
[2021-06-07] MEDS: TAMSULOSIN HCL 0.4 MG CAP PO SCH (09:00)
[2021-06-07] MEDS: ENOXAPARIN SODIUM 30 MG/0.3 ML SYRINGE SUBCUT SCH (09:00)
[2021-06-07] MEDS: VERAPAMIL HCL 120 MG TABLET.SA PO SCH ×2 (09:00→22:28)
[2021-06-07] MEDS: hydrALAZINE HCL 25 MG TABLET PO SCH ×3 (09:00→22:29)
[2021-06-07] MEDS: cloNIDine HCL 0.2 MG TABLET PO SCH ×2 (09:00→18:26)
[2021-06-07] MEDS: DORZOLAMIDE HCL/TIMOLOL MAL. 10 ML EYE DROPS (COSOPT) EACH EYE SCH ×2 (09:00→22:31)
[2021-06-07] MEDS: CEFEPIME 0.5 GM in D5W 50 ML IV SCH (11:00)
[2021-06-07 12:48] VITALS: BP_SYST 114
[2021-06-07] MEDS ORDERED: VANCOMYCIN HCL 500 MG in NS 100 ML IV ONE (13:00)
[2021-06-07] MEDS: PANTOPRAZOLE SODIUM 40 MG/VIAL (PROTONIX) IVP SCH ×2 (13:34→22:31)
[2021-06-07] MEDS: D5NS 1,000 ML IV SCH (17:00)
[2021-06-07 17:43] VITALS: BP_SYST 162
--- NOTE | 2021-06-07 18:28 | NUR ---
G TUBE IN TACT AND IN PLACE WITH NEPRO 10ML/HR STARTED ORDERED. DRESSING DRY AND INTACT.
[2021-06-07 20:00] VITALS: BP_SYST 118
[2021-06-07] MEDS: ATORVASTATIN 20 MG TABLET PO SCH (22:29)
[2021-06-08] VITALS (18 sets, daily range): BP systolic 51–196
[2021-06-08] MEDS: INSULIN REGULAR, HUMAN 100 UNITS/ML, 10 ML VIAL (humuLIN R) SUBCUT PRN ×2 (00:57→11:59)
[2021-06-08] MEDS: D5NS 1,000 ML IV SCH ×2 (05:34→20:43)
[2021-06-08] MEDS: NORMAL SALINE 5 ML DISP.SYRIN IVF SCH ×3 (05:44→21:17)
--- NOTE | 2021-06-08 05:45 | NUR ---
Accucheck / residual assessed accucheck 146mg/dL, no coverage. Residual assessed, 25ml noted and returned, presently reached goal rate of 60ml/hr, wctm.
[2021-06-08 06:45] LABS: BASOPHILS % (AUTO) 0.5 % (0.0-2.0); EOSINOPHILS # (AUTO) 0.2 K/uL (0.0-0.4); EOSINOPHILS % (AUTO) 2.3 % (0.0-4.0); HEMATOCRIT 22.2 % (36-54); LYMPHOCYTES # (AUTO) 0.8 K/uL (1.0-5.5); LYMPHOCYTES % (AUTO) 8.3 % (20.5-51.5); MEAN CORPUSCULAR HEMOGLOBIN 27 pg (27-31); MEAN CORPUSCULAR HGB CONC 31 % (32-36); MEAN CORPUSCULAR VOLUME 86 fL (79.0-98.0); MONOCYTES # (AUTO) 0.7 K/uL (0.0-1.0); MONOCYTES % (AUTO) 6.9 % (1.7-9.3); PLATELET COUNT (AUTO) 301 K/uL (130-430); RED BLOOD CELL COUNT(AUTO) 2.57 MIL/uL (4.2-6.2); RED CELL DISTRIBUTION WIDTH 17.6 % (9.0-15.0); WHITE BLOOD COUNT (AUTO) 9.7 K/uL (4.8-10.8)
[2021-06-08] MEDS: LEVOTHYROXINE SODIUM 0.15 MG TABLET PO SCH (07:02)
[2021-06-08 07:23] LABS: ALANINE AMINOTRANSFERASE 28 U/L (12-78); ALBUMIN 1.4 g/dL (3.4-4.8); ANION GAP 11 (5-15); ASPARTATE AMINOTRANSFERASE 100 U/L (10-37); CALCIUM 8.4 mg/dL (8.4-11.0); CHLORIDE 104 mmol/L (98-107); GLUCOSE 153 mg/dL (70-99); POTASSIUM 3.8 mmol/L (3.5-5.1); SODIUM SERUM 136 mmol/L (136-145); TOTAL BILIRUBIN 0.3 mg/dL (0.0-1.0); UREA NITROGEN, BLOOD 38 mg/dL (8-21)
[2021-06-08 07:43] LABS: CREATININE 7.58 mg/dL (0.55-1.30)
[2021-06-08] MEDS: DORZOLAMIDE HCL/TIMOLOL MAL. 10 ML EYE DROPS (COSOPT) EACH EYE SCH ×2 (08:49→20:40)
[2021-06-08] MEDS: VERAPAMIL HCL 120 MG TABLET.SA PO SCH ×2 (08:50→20:42)
[2021-06-08] MEDS: TAMSULOSIN HCL 0.4 MG CAP PO SCH (08:50)
[2021-06-08] MEDS: hydrALAZINE HCL 25 MG TABLET PO SCH ×3 (08:50→20:41)
[2021-06-08] MEDS: cloNIDine HCL 0.2 MG TABLET PO SCH ×2 (08:51→16:56)
[2021-06-08] MEDS: PANTOPRAZOLE SODIUM 40 MG/VIAL (PROTONIX) IVP SCH ×2 (08:51→20:43)
[2021-06-08] MEDS: ENOXAPARIN SODIUM 30 MG/0.3 ML SYRINGE SUBCUT SCH (08:52)
--- NOTE | 2021-06-08 09:00 | NUR ---
Rec'd pt A+O x1, laying in bed at 0700 sleeping. pt mumbling words- hard to understand- pt baseline. Pt does not appear in pain. Midline noted to R upper arm- 2 lumen, infusing IVF. R chest permacath noted. No headache, dizziness, chest pain or N+T. Edema noted to L arm. Lungs diminished. No sob/cough noted. RA 99%. BSx4. G tube noted- infusing tube feed, BAD binder in place. Pt does not appear nauseated. Void minimal- pt on dialysis-inc. R BKA noted. Bedrest. VSS- BP taken on LLE. Med flushed through G tube. Coccyx dressing noted. Will continue to monitor.
--- NOTE | 2021-06-08 10:20 | NUR ---
Dialysis nurse came and spoke to fiction and nonfiction writer prose- hypotensive, non responsive and low O2 sat (55/25, 87% RA).
--- NOTE | 2021-06-08 10:35 | NUR ---
Dr. lopez called- orders received for albumin, transfer to icu and levo prn.
[2021-06-08] MEDS ORDERED: ALBUMIN HUMAN 25% 200 ML IV ONE ×2 (10:45→10:48)
--- NOTE | 2021-06-08 10:45 | NUR ---
NS 250ml bolus started.
--- NOTE | 2021-06-08 10:45 | NUR ---
RT NOTES 1041 [employer] was called, pt found lethargic. Placed pt on 15L NRB. Pt slowly saturates 90s. will cont to monitor pt. will draw ABG.
--- NOTE | 2021-06-08 10:45 | NUR ---
G obtained by RT.
--- NOTE | 2021-06-08 10:50 | NUR ---
First of two bottles of albumin started.
--- NOTE | 2021-06-08 11:00 | NUR ---
Pt transferred to ICU- report given to Nurse Lopez. All questions answered.
--- NOTE | 2021-06-08 11:01 | NUR ---
TO ICU RECEIVED PT IN ROOM 2, PT LETHARGIC, ON NON REBREATHER MASK, GTUBE INTACT, AND CLAMPED, BINDER TO KEEP GTUBE IN PLACE, REVENUE CYCLE ADMINISTRATOR ON NSR, WILL MONITOR PT.
--- NOTE | 2021-06-08 11:07 | NUR ---
ATTENDING MD DR BORJA WAS CALLED, RE: PT TRANSFERED TO ICU PER DR FARRELL, PT IS HYPOTENSIVE. SPOKE TO AJ.
--- NOTE | 2021-06-08 11:21 | NUR ---
LOC. PT GRIMACING TO TACTILE STIMULI, BP READING 96/74, HEART RATE 71.
[2021-06-08] MEDS ORDERED: NOREPINEPHRINE BITARTRATE 4 MG in NS 246 ML IV PRN (12:15)
[2021-06-08] MEDS: METOCLOPRAMIDE HCL 10 MG/2 ML VIAL IVP SCH ×2 (13:47→20:43)
--- NOTE | 2021-06-08 14:00 | NUR ---
DIET. TURNED PT TO HIS SIDE, FOAM DRESSING TO SACRAL AREA, MOISTURE BARRIER CREAM APPLIED TO SCROTAL BOTTOM SIDE. GTUBE FEEDING RESUMED, AND RATE CHANGED TO 60 ML PER HOUR. HEAD OF BED ELEVATED. PT MOANING DURING CARE.
--- NOTE | 2021-06-08 14:49 | NUR ---
Nutrition F/U Admitting Diagnosis SOB Reviewed Pertinent Medical/Surgical Hx Medical Record Medical History Comment: PMH: ESRD, DM, HTN and possible early dementia per physician notes. Pt also found w/ gangrene of R toes, peripheral vascular dz / T2DM, duodenal ulcers and sepsis. 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 Sharad score 10 w/ lower sacrum wound and non-pitting edema on L arm. LBM x1 06/06. 0 mL GRV noted 06/07. Pt is receiving HD every 1-2 days; last ordered 06/07. Pt is s/p PEG x1 day and is currently receiving TF. Per MD note, pt to start at 10 cc/hr until goal of 60 cc/hr; MD reports pt got up to 60 cc/hr but had high residuals of 180 cc so TF was held. Pt was transferred to ICU this afternoon. DI visited pt at bedside and noticed TF was off. RN reports TF held d/t high blood pressure and will restart later in the afternoon. DI asked RN not to hold TF unless GRV was >500 mL. RN reports water flush is 100 mL Q8h. Current Diet Order/Nutrition Support: Nepro @60 mL/hr w/ free water flush 100 mL Q8h via GT x1 day. Patient/Significant Other Unable To Verbalize Education Provided Not Indicated Pertinent Medications: cefepime, morphine, retacrit, lipitor, SSI, Synthroid, vancomycin, D5ND at 70 ml/hr x 14 hrs (provides 167 kcals/day), lovenox, reglan, protonix IV Pertinent Labs: BUN 38 H, Cr 7.58 H, BG 153 H, AST 100 H, Alb 1.4 L Height (Feet) 6 feet Height (Inches) 1.00 inches Weight (Pounds) 180 pounds; 177# (05/29) -- note 3# wt loss, may be d/t fluid shifts a/w ESRD no changes since 05/29 05/25: 182.6 # Weight (Calculated Kilograms) 81.777662 kilograms 05/25: 83 kg Body Mass Index 23.75 kg/m2 05/25: 24.1 kg/mw %IBW 98 05/25: 99% [place]/Adjusted Body Weight 184#/84; AdjBW: 173#/78.7 kg (-5.9% d/t BKA) Recent Weight Change Unable to verify Weight Status Appropriate Food Allergies Unable to verify Usual Diet At Home Regular per nursing nutritional screening (*NEW) Estimated Energy Expenditure (kcals/day) 4215-1976 kcals/day (30-35 kcals/kg AdjBW d/t BKA, sepsis) (*NEW) Estimated Protein Required (g/day) 118-157 g/day (1.5-2 g/kg Adj BW d/t BKA, sepsis) Estimated Fluid Required (l/day) Per physician d/t ESRD Problem/Etiology/Signs/Symptoms Inadequate oral intake r/t increased lethargy AEB PO intake <25% and refusing meals. (*Not applicable, plan for PEG) Altered nutrition-related labs R/T endocrine and renal dysfunction AEB abnormal Na, K, BG, POC BG, BUN, and CRE lab values. (*Ongoing) Inadequate EN intake R/T high GRV of 180 mL AEB TF held, previously running at 10 mL/hr. Expected Outcomes/Goals - Monitor nutrition support w/ goal of pt meeting >80% of estimated nutritional needs, labs trending WNL, normal GI function, and skin integrity/wt maintenance Dietitian Recommendations * TF: Nepro at 60 ml/hr (goal rate), clarify free water flush, Agustín BID Provides (w/ D5% and Agustín BID): 2919 kcals/day and 122 g protein/day Meets: 106% of upper end of caloric needs and 103% of lower end of protein needs Follow Up High Risk: 2-3 days Signed: 06/08/21 at 1449 by Swetha CHRISTENSEN <Co-Signature Required> Co-Signed: 06/08/21 at [address]
--- NOTE | 2021-06-08 14:50 | NUR ---
Dietitian Recommendations * TF: Nepro at 60 ml/hr (goal rate), clarify free water flush, Agustín BID Provides (w/ D5% and Agustín BID): 2919 kcals/day and 122 g protein/day Meets: 106% of upper end of caloric needs and 103% of lower end of protein needs LP, RD Please refer to Nutrition F/U for details. Signed: 06/08/21 at 1450 by Swetha CHRISTENSEN <Co-Signature Required> Co-Signed: 06/08/21 at [address]
[2021-06-08] MEDS: NOREPINEPHRINE BITARTRATE 4 MG in D5W 246 ML IV SCH ×2 (15:26→21:20)
--- NOTE | 2021-06-08 15:26 | NUR ---
IV DRIPS INITIATED LEVOPHED DRIP TO 0.1 MCG/KG/MIN, BP READING 70/31.
[2021-06-08] MEDS: EPOETIN ALFA-EPBX 4,000 UNITS/ML VIAL SUBCUT SCH (17:18)
[2021-06-08 18:57] LABS: BASOPHILS # (AUTO) 0.1 K/uL (0.0-0.2); EOSINOPHILS # (AUTO) 0.3 K/uL (0.0-0.4); EOSINOPHILS % (AUTO) 2.8 % (0.0-4.0); LYMPHOCYTES # (AUTO) 0.8 K/uL (1.0-5.5); LYMPHOCYTES % (AUTO) 7.3 % (20.5-51.5); MEAN CORPUSCULAR HEMOGLOBIN 27 pg (27-31); MEAN CORPUSCULAR HGB CONC 31 % (32-36); MEAN CORPUSCULAR VOLUME 87 fL (79.0-98.0); MONOCYTES # (AUTO) 0.6 K/uL (0.0-1.0); MONOCYTES % (AUTO) 5.7 % (1.7-9.3); NEUTROPHILS # (AUTO) 8.6 K/uL (1.8-7.7); NEUTROPHILS % (AUTO) 83.2 % (40.0-70.0); PLATELET COUNT (AUTO) 289 K/uL (130-430); RED BLOOD CELL COUNT(AUTO) 2.31 MIL/uL (4.2-6.2); RED CELL DISTRIBUTION WIDTH 17.6 % (9.0-15.0); WHITE BLOOD COUNT (AUTO) 10.3 K/uL (4.8-10.8)
[2021-06-08 19:12] LABS: HEMOGLOBIN 6.3 g/dL (14.0-18.0)
[2021-06-08 19:13] LABS: HEMATOCRIT 20.1 % (36-54)
--- NOTE | 2021-06-08 20:33 | NUR ---
PAGED DR FARRELL INFORMED HIM FOR Hb-6.3 ADVISED TO TRANSFUSED 2 UNITS PRBC ORDERED.
[2021-06-08] MEDS: ATORVASTATIN 20 MG TABLET PO SCH (20:42)
--- NOTE | 2021-06-08 22:30 | NUR ---
[address] scan for stat CT Abdomen and pelvis. as ordered by Dr Mcintosh.1st unit prbc transfusing [facility] Unit #[id number]
[2021-06-09] VITALS (23 sets, daily range): BP systolic 86–161
[2021-06-09] MEDS: INSULIN REGULAR, HUMAN 100 UNITS/ML, 10 ML VIAL (humuLIN R) SUBCUT PRN ×2 (00:39→18:27)
[2021-06-09] MEDS ORDERED: NOREPINEPHRINE 4 MG/4 ML VIAL IV ONE (02:38)
[2021-06-09] MEDS: D5W IV SCH ×2 (02:44→20:27)
[2021-06-09] MEDS: NOREPINEPHRINE BITARTRATE IV SCH ×2 (02:44→20:27)
[2021-06-09] MEDS: D5NS 1,000 ML IV SCH ×2 (05:24→21:10)
[2021-06-09] MEDS: NORMAL SALINE 5 ML DISP.SYRIN IVF SCH ×3 (06:09→21:11)
[2021-06-09] MEDS: METOCLOPRAMIDE HCL 10 MG/2 ML VIAL IVP SCH ×3 (06:10→21:10)
[2021-06-09] MEDS: LEVOTHYROXINE SODIUM 0.15 MG TABLET PO SCH (06:11)
--- NOTE | 2021-06-09 06:32 | NUR ---
ALL CARES DONE, 2 UNITS PRBC GIVEN LEVOPHED WEAN AT 0.10 MCG BP MAINTAINING, CHG BATH GIVEN AND TURN AND REPOSITION TO COMFORT.CONTINUE CARE. BSL WNL.
[2021-06-09 07:49] LABS: BASOPHILS % (AUTO) 0.4 % (0.0-2.0); EOSINOPHILS # (AUTO) 0.3 K/uL (0.0-0.4); EOSINOPHILS % (AUTO) 2.6 % (0.0-4.0); HEMATOCRIT 29.6 % (36-54); HEMOGLOBIN 9.2 g/dL (14.0-18.0); LYMPHOCYTES # (AUTO) 0.6 K/uL (1.0-5.5); MEAN CORPUSCULAR HEMOGLOBIN 27 pg (27-31); MEAN CORPUSCULAR HGB CONC 31 % (32-36); MEAN CORPUSCULAR VOLUME 86 fL (79.0-98.0); MONOCYTES # (AUTO) 0.8 K/uL (0.0-1.0); MONOCYTES % (AUTO) 7.7 % (1.7-9.3); NEUTROPHILS # (AUTO) 8.2 K/uL (1.8-7.7); NEUTROPHILS % (AUTO) 83.3 % (40.0-70.0); PLATELET COUNT (AUTO) 292 K/uL (130-430); RED BLOOD CELL COUNT(AUTO) 3.44 MIL/uL (4.2-6.2); RED CELL DISTRIBUTION WIDTH 18.3 % (9.0-15.0); WHITE BLOOD COUNT (AUTO) 9.9 K/uL (4.8-10.8)
[2021-06-09 08:15] LABS: ALANINE AMINOTRANSFERASE 18 U/L (12-78); ALBUMIN 1.7 g/dL (3.4-4.8); ASPARTATE AMINOTRANSFERASE 59 U/L (10-37); CALCIUM 8.2 mg/dL (8.4-11.0); CHLORIDE 102 mmol/L (98-107); GLUCOSE 176 mg/dL (70-99); POTASSIUM 3.7 mmol/L (3.5-5.1); SODIUM SERUM 138 mmol/L (136-145); TOTAL BILIRUBIN 1.4 mg/dL (0.0-1.0); UREA NITROGEN, BLOOD 47 mg/dL (8-21); VANCOMYCIN,RANDOM 14.9 ug/mL
[2021-06-09 08:58] LABS: ANION GAP 15 (5-15)
[2021-06-09] MEDS: PANTOPRAZOLE SODIUM 40 MG/VIAL (PROTONIX) IVP SCH ×2 (09:00→21:10)
[2021-06-09] MEDS: hydrALAZINE HCL 25 MG TABLET PO SCH ×3 (09:00→21:00)
[2021-06-09] MEDS: DORZOLAMIDE HCL/TIMOLOL MAL. 10 ML EYE DROPS (COSOPT) EACH EYE SCH ×2 (09:00→21:10)
[2021-06-09] MEDS: cloNIDine HCL 0.2 MG TABLET PO SCH ×2 (09:00→17:00)
[2021-06-09] MEDS: VERAPAMIL HCL 120 MG TABLET.SA PO SCH ×2 (09:00→21:00)
[2021-06-09] MEDS: TAMSULOSIN HCL 0.4 MG CAP PO SCH (09:00)
[2021-06-09 09:07] LABS: CREATININE 8.77 mg/dL (0.55-1.30)
[2021-06-09] MEDS: ENOXAPARIN SODIUM 30 MG/0.3 ML SYRINGE SUBCUT SCH (12:07)
[2021-06-09] MEDS: PIPERACILLIN/TAZO 2.25G/DEX-IS 50 ML IV SCH ×3 (12:27→23:51)
[2021-06-09] MEDS ORDERED: VANCOMYCIN HCL 500 MG in NS 100 ML IV ONE (13:00)
--- NOTE | 2021-06-09 19:15 | NUR ---
Opening notes Received report from endorsing morning shift RN for continuity of care. Patient is lying in bed in no signs of distress with IVF D5NS @70mL/hr, and levophed @ 0.3mcg/kg/min. Patient is on nasal cannula @ 2L/min. Patient's vital signs blood pressure 104/35, heart rate 87, respirations 14, and SPO2 100%. Bed is locked and in lowest position, fall and safety precautions is in place.
[2021-06-09] MEDS: ATORVASTATIN 20 MG TABLET PO SCH (21:11)
[2021-06-10] VITALS (27 sets, daily range): BP systolic 29–164
[2021-06-10] MEDS: INSULIN REGULAR, HUMAN 100 UNITS/ML, 10 ML VIAL (humuLIN R) SUBCUT PRN ×4 (00:03→23:49)
[2021-06-10] MEDS: ACETAMINOPHEN 325 MG TABLET PO PRN (00:14)
[2021-06-10] MEDS ORDERED: NOREPINEPHRINE 4 MG/4 ML VIAL IV ONE (03:53)
[2021-06-10] MEDS: D5W IV SCH (04:03)
[2021-06-10] MEDS: NOREPINEPHRINE BITARTRATE IV SCH (04:03)
[2021-06-10] MEDS: METOCLOPRAMIDE HCL 10 MG/2 ML VIAL IVP SCH ×3 (06:17→21:10)
[2021-06-10] MEDS: LEVOTHYROXINE SODIUM 0.15 MG TABLET PO SCH (06:17)
[2021-06-10] MEDS: PIPERACILLIN/TAZO 2.25G/DEX-IS 50 ML IV SCH ×4 (06:17→23:47)
[2021-06-10] MEDS: NORMAL SALINE 5 ML DISP.SYRIN IVF SCH ×3 (06:17→21:10)
--- NOTE | 2021-06-10 06:50 | NUR ---
Rounding Dr. Love is in the unit rounding, gave verbal report. Updated Dr. Love that the patient had a fever around midnight and high residual most of the night. No new order given.
--- NOTE | 2021-06-10 08:00 | NUR ---
Received pt at approx 0710am this morning lying on bed on semi martinez's position. Patient is awake and responds to verbal commands. Alert to self only. On O2 at 2 lpm via nasal cannula with breathing even and unlabored. No s/s of distress noted. Patient is on G tube feeding at goal rate with 5 ml gastric residual. Levophed running at 0.34 mcg/kg/min with blood pressure trends at 100-110 SBP. No s/s of bleeding. Intact IV and HD catheters. Right foot amputation with kerlix dressing without any signs of active bleeding or infection. To continue current plan of care. 07:30am. Temporarily turned off levophed drip since BP trends at 100-110 SBP. 08:00am. BP drops to 93 SBP. Addendum: 06/10/21 at 1753 by [employer] car pusher 08:00. Resumed levophed drip.
[2021-06-10 08:25] LABS: ALANINE AMINOTRANSFERASE 19 U/L (12-78); ALBUMIN 1.7 g/dL (3.4-4.8); ASPARTATE AMINOTRANSFERASE 74 U/L (10-37); CALCIUM 8.7 mg/dL (8.4-11.0); GLUCOSE 236 mg/dL (70-99); TOTAL BILIRUBIN 0.5 mg/dL (0.0-1.0); UREA NITROGEN, BLOOD 36 mg/dL (8-21)
[2021-06-10] MEDS: hydrALAZINE HCL 25 MG TABLET PO SCH ×3 (08:58→21:09)
[2021-06-10] MEDS: VERAPAMIL HCL 120 MG TABLET.SA PO SCH ×2 (08:59→21:10)
[2021-06-10] MEDS: cloNIDine HCL 0.2 MG TABLET PO SCH ×2 (09:00→17:59)
[2021-06-10] MEDS: TAMSULOSIN HCL 0.4 MG CAP PO SCH (09:00)
[2021-06-10 09:02] LABS: BASOPHILS # (AUTO) 0.1 K/uL (0.0-0.2); BASOPHILS % (AUTO) 0.9 % (0.0-2.0); EOSINOPHILS # (AUTO) 0.4 K/uL (0.0-0.4); EOSINOPHILS % (AUTO) 3.1 % (0.0-4.0); HEMATOCRIT 29.5 % (36-54); HEMOGLOBIN 9.2 g/dL (14.0-18.0); LYMPHOCYTES # (AUTO) 1.2 K/uL (1.0-5.5); LYMPHOCYTES % (AUTO) 10.4 % (20.5-51.5); MEAN CORPUSCULAR HEMOGLOBIN 26 pg (27-31); MEAN CORPUSCULAR HGB CONC 31 % (32-36); MEAN CORPUSCULAR VOLUME 85 fL (79.0-98.0); MONOCYTES # (AUTO) 1.3 K/uL (0.0-1.0); MONOCYTES % (AUTO) 10.6 % (1.7-9.3); PLATELET COUNT (AUTO) 330 K/uL (130-430); RED BLOOD CELL COUNT(AUTO) 3.47 MIL/uL (4.2-6.2); RED CELL DISTRIBUTION WIDTH 18.4 % (9.0-15.0); WHITE BLOOD COUNT (AUTO) 11.9 K/uL (4.8-10.8)
[2021-06-10] MEDS: PANTOPRAZOLE SODIUM 40 MG/VIAL (PROTONIX) IVP SCH ×2 (09:08→21:10)
[2021-06-10] MEDS: DORZOLAMIDE HCL/TIMOLOL MAL. 10 ML EYE DROPS (COSOPT) EACH EYE SCH ×2 (09:08→21:12)
[2021-06-10 09:55] LABS: ANION GAP 11 (5-15); CHLORIDE 99 mmol/L (98-107); POTASSIUM 4.2 mmol/L (3.5-5.1); SODIUM SERUM 136 mmol/L (136-145)
[2021-06-10] MEDS: D5NS 1,000 ML IV SCH ×2 (12:00→23:47)
--- NOTE | 2021-06-10 12:00 | NUR ---
Gastric residual approx 300-350 ml. Held gtube feeding.
--- NOTE | 2021-06-10 15:00 | NUR ---
Levophed drip held due to SBP trends >150. 1700. Gtube feeding is still on hold due to gastric residual of >150ml/. blood sugar at 157. No insulin coverage at this time due to feeding is on hold.
--- NOTE | 2021-06-10 18:35 | NUR ---
Patient remains confused but is able to say his name. No s/s of distress, VS are within acceptable range. Tolerating room air with SPO2 98%. Feeding kept on hold due to residual is > 200 mL. No s/s of aspiration-kept HOB at least 30 degrees elevated. Levophed remains on hold as SBP trends > 110. All needs anticipated and met. Dr. Hoskins made rounds early afternoon and no new orders made. Continue HD schedule T,,S. All Iv catheters and HD access remain patent. No s/s of bleeding. Continue current plan of care.
--- NOTE | 2021-06-10 19:15 | NUR ---
Opening notes Received report from endorsing morning shift for continuity of care. Patient is lying in bed with no signs of distress with IVF of D5NS @ 70mL/hr. Patient is on room air with SPO2 of 97-99%. Patient's vital sings blood pressure 122/27, heart rate 88, SPO2 97%, and respirations of 12. Dressing on the right foot is intact and clean with no signs of bleeding. Bed is locked and in lowest position, HOB 30-35 degrees, fall and safety precautions is in place.
--- NOTE | 2021-06-10 21:09 | NUR ---
Tube feeding Resumed tube feeding Nepro @ 60, checked residual and it is only 15.
[2021-06-10] MEDS: ATORVASTATIN 20 MG TABLET PO SCH (21:11)
--- NOTE | 2021-06-10 22:33 | NUR ---
Levophed Turned levophed back on to 0.1 mcg/kg/min d/t blood pressure/MAP <65. Will continue to monitor blood pressure and titrate levophed as needed.
[2021-06-11] VITALS (23 sets, daily range): BP systolic 90–153
[2021-06-11] MEDS: INSULIN REGULAR, HUMAN 100 UNITS/ML, 10 ML VIAL (humuLIN R) SUBCUT PRN ×2 (06:09→19:19)
[2021-06-11] MEDS: LEVOTHYROXINE SODIUM 0.15 MG TABLET PO SCH (06:10)
[2021-06-11] MEDS: NORMAL SALINE 5 ML DISP.SYRIN IVF SCH ×3 (06:10→21:26)
[2021-06-11] MEDS: METOCLOPRAMIDE HCL 10 MG/2 ML VIAL IVP SCH ×3 (06:10→21:26)
[2021-06-11] MEDS: PIPERACILLIN/TAZO 2.25G/DEX-IS 50 ML IV SCH ×4 (06:10→23:13)
[2021-06-11] MEDS: cloNIDine HCL 0.2 MG TABLET PO SCH ×2 (09:00→17:00)
[2021-06-11] MEDS: VERAPAMIL HCL 120 MG TABLET.SA PO SCH ×2 (09:00→21:24)
[2021-06-11] MEDS: hydrALAZINE HCL 25 MG TABLET PO SCH ×3 (09:00→21:00)
[2021-06-11] MEDS: DORZOLAMIDE HCL/TIMOLOL MAL. 10 ML EYE DROPS (COSOPT) EACH EYE SCH ×2 (09:00→21:23)
[2021-06-11] MEDS: TAMSULOSIN HCL 0.4 MG CAP PO SCH (10:31)
[2021-06-11] MEDS: PANTOPRAZOLE SODIUM 40 MG/VIAL (PROTONIX) IVP SCH ×2 (10:31→21:25)
[2021-06-11] MEDS ORDERED: VANCOMYCIN HCL 500 MG in NS 100 ML IV SCH (13:00)
--- NOTE | 2021-06-11 14:06 | NUR ---
Nutrition F/U Admitting Diagnosis SOB Reviewed Pertinent Medical/Surgical Hx Medical Record Medical History Comment: PMH: ESRD, DM, HTN and possible early dementia per physician notes. Pt also found w/ gangrene of R toes, peripheral vascular dz 04/18 T2DM, duodenal ulcers and sepsis. 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 Per physician notes pt did not tolerate HD 06/08, H/H dropped; possible septic shock; physician wants TF held for GRV >150 ml. Per EMR review, Sharad score 11 w/ lower sacrum wound and non-pitting edema on L arm; last BM x1 06/06; abd soft and non-distended w/ active bowel sounds; TF running at 60 ml/hr (06/11); GRV 350 ml (06/11), GRV 200-350 ml since 06/09. Current Diet Order/Nutrition Support: Nepro @60 mL/hr w/ free water flush 100 mL Q6H via GT x2 day. Education Provided Not Indicated Pertinent Medications: retacrit, lipitor, SSI, Synthroid, D5NS at 70 ml/hr x 14 hrs (provides 167 kcals/day), reglan, protonix IV, piperacillin/tazobactam Pertinent Labs: 06/10: BUN 36 H, Cr 6.8 H, BG 236, POC BG 197 H, Alb 1.7 L, 06/11: POC BG 222 Height (Feet) 6 feet Height (Inches) 1.00 inches Weight (Pounds) 180 pounds; 177# (05/29) -- note 3# wt loss, may be d/t fluid shifts a/w ESRD no changes since 05/29 05/25: 182.6 # Weight (Calculated Kilograms) 81.143972 kilograms 05/25: 83 kg Body Mass Index 23.75 kg/m2 05/25: 24.1 kg/mw %IBW 98 05/25: 99% [place]/Adjusted Body Weight 184#/84; AdjBW: 173#/78.7 kg (-5.9% d/t BKA) Recent Weight Change Unable to verify Weight Status Appropriate Food Allergies Unable to verify Usual Diet At Home Regular per nursing nutritional screening (*NEW) Estimated Energy Expenditure (kcals/day) 9472-1651 kcals/day (30-35 kcals/kg AdjBW d/t BKA, sepsis) (*NEW) Estimated Protein Required (g/day) 118-157 g/day (1.5-2 g/kg Adj BW d/t BKA, sepsis) Estimated Fluid Required (l/day) Per physician d/t ESRD Problem/Etiology/Signs/Symptoms Inadequate oral intake r/t increased lethargy AEB PO intake <25% and refusing meals. (*Not applicable, plan for PEG) Altered nutrition-related labs R/T endocrine and renal dysfunction AEB abnormal Na, K, BG, POC BG, BUN, and CRE lab values. (*Ongoing) Inadequate EN intake R/T high GRV of 180 mL AEB TF held, previously running at 10 mL/hr. (*Ongoing) Expected Outcomes/Goals - Monitor nutrition support w/ goal of pt meeting >80% of estimated nutritional needs, labs trending WNL, normal GI function, and skin integrity/wt maintenance Dietitian Recommendations * TF: Nepro at 60 ml/hr (goal rate), FWF 100 ml q6H, hold for GRV 150 ml Provides: 2549 kcals/day, 116 g protein/day, 1447 ml water/day Meets: 93% of upper end of caloric needs and 98% of lower end of protein needs Follow Up High Risk: 2-3 days
[2021-06-11] MEDS: ACETAMINOPHEN 325 MG TABLET PO PRN (14:48)
[2021-06-11] MEDS: D5NS 1,000 ML IV SCH (15:41)
[2021-06-11] MEDS: D5W IV SCH (15:48)
[2021-06-11] MEDS: NOREPINEPHRINE BITARTRATE IV SCH (15:48)
[2021-06-11] MEDS: EPOETIN ALFA-EPBX 4,000 UNITS/ML VIAL SUBCUT SCH (17:00)
[2021-06-11] MEDS: ATORVASTATIN 20 MG TABLET PO SCH (21:26)
[2021-06-12] VITALS (33 sets, daily range): BP systolic 96–161
[2021-06-12] MEDS: INSULIN REGULAR, HUMAN 100 UNITS/ML, 10 ML VIAL (humuLIN R) SUBCUT PRN ×2 (01:11→07:07)
[2021-06-12 06:37] LABS: ALANINE AMINOTRANSFERASE 12 U/L (12-78); ALBUMIN 1.3 g/dL (3.4-4.8); ANION GAP 13 (5-15); ASPARTATE AMINOTRANSFERASE 70 U/L (10-37); CALCIUM 8.8 mg/dL (8.4-11.0); CHLORIDE 102 mmol/L (98-107); GLUCOSE 234 mg/dL (70-99); SODIUM SERUM 137 mmol/L (136-145); TOTAL BILIRUBIN 0.3 mg/dL (0.0-1.0); UREA NITROGEN, BLOOD 55 mg/dL (8-21)
[2021-06-12 06:41] LABS: CREATININE 8.69 mg/dL (0.55-1.30)
[2021-06-12] MEDS: METOCLOPRAMIDE HCL 10 MG/2 ML VIAL IVP SCH ×3 (07:02→21:01)
[2021-06-12] MEDS: NORMAL SALINE 5 ML DISP.SYRIN IVF SCH ×3 (07:02→21:02)
[2021-06-12] MEDS: PIPERACILLIN/TAZO 2.25G/DEX-IS 50 ML IV SCH ×3 (07:02→17:38)
--- NOTE | 2021-06-12 07:29 | NUR ---
Creatinine 8.69 reported to MD Drummond
[2021-06-12 07:55] LABS: BASOPHILS # (AUTO) 0.1 K/uL (0.0-0.2); BASOPHILS % (AUTO) 0.7 % (0.0-2.0); EOSINOPHILS # (AUTO) 0.4 K/uL (0.0-0.4); EOSINOPHILS % (AUTO) 4.3 % (0.0-4.0); HEMATOCRIT 28.6 % (36-54); HEMOGLOBIN 8.8 g/dL (14.0-18.0); LYMPHOCYTES # (AUTO) 0.7 K/uL (1.0-5.5); LYMPHOCYTES % (AUTO) 8.2 % (20.5-51.5); MEAN CORPUSCULAR HEMOGLOBIN 26 pg (27-31); MEAN CORPUSCULAR HGB CONC 31 % (32-36); MEAN CORPUSCULAR VOLUME 85 fL (79.0-98.0); MONOCYTES # (AUTO) 0.5 K/uL (0.0-1.0); MONOCYTES % (AUTO) 6.2 % (1.7-9.3); NEUTROPHILS # (AUTO) 6.7 K/uL (1.8-7.7); PLATELET COUNT (AUTO) 289 K/uL (130-430); RED BLOOD CELL COUNT(AUTO) 3.36 MIL/uL (4.2-6.2); RED CELL DISTRIBUTION WIDTH 18.3 % (9.0-15.0); WHITE BLOOD COUNT (AUTO) 8.3 K/uL (4.8-10.8)
[2021-06-12] MEDS: LEVOTHYROXINE SODIUM 0.15 MG TABLET PO SCH (08:49)
[2021-06-12] MEDS: PANTOPRAZOLE SODIUM 40 MG/VIAL (PROTONIX) IVP SCH ×2 (08:50→21:00)
[2021-06-12] MEDS: ACETAMINOPHEN 325 MG TABLET PO PRN (08:52)
[2021-06-12] MEDS: DORZOLAMIDE HCL/TIMOLOL MAL. 10 ML EYE DROPS (COSOPT) EACH EYE SCH ×2 (08:54→21:03)
[2021-06-12] MEDS: cloNIDine HCL 0.2 MG TABLET PO SCH ×2 (09:00→16:15)
[2021-06-12] MEDS: VERAPAMIL HCL 120 MG TABLET.SA PO SCH ×2 (09:00→21:00)
[2021-06-12] MEDS: hydrALAZINE HCL 25 MG TABLET PO SCH ×3 (09:00→21:00)
[2021-06-12] MEDS: TAMSULOSIN HCL 0.4 MG CAP PO SCH (09:00)
[2021-06-12 09:02] LABS: NEUTROPHILS % (AUTO) 80.6 % (40.0-70.0)
[2021-06-12] MEDS ORDERED: HEPARIN SODIUM,PORCINE 5,000 UNITS/ML VIAL MC ONE (10:45)
[2021-06-12] MEDS: ATORVASTATIN 20 MG TABLET PO SCH (21:04)
[2021-06-12] MEDS ORDERED: ATROPINE SULFATE 1 MG/10 ML SYRINGE IVP ONE (23:22)
--- NOTE | 2021-06-12 23:53 | NUR ---
DR. LINDA SIN MADE AWARE THAT PT IS S/P CODE BLUE. CURRENT VITAL SIGNS PROVIDED, PER GIVE 1 AMP EPI IVP NOW AND START PT ON DOPAMINE DRIP. WILL CARRY OUT ORDERED.
[2021-06-12] MEDS ORDERED: DOPamine PREMIX 250 ML IV ONE (23:54)
[2021-06-13] VITALS (8 sets, daily range): BP systolic 21–130
[2021-06-13] MEDS ORDERED: EPINEPHrine JECT 0.1 MG/ML SYR IVP ONE ×2 (00:15→05:01)
[2021-06-13] MEDS ORDERED: DOPamine PREMIX 250 ML IV PRN (00:15)
[2021-06-13] MEDS ORDERED: ATROPINE SULFATE 1 MG/10 ML SYRINGE IVP ONE (00:15)
--- NOTE | 2021-06-13 00:18 | NUR ---
FAMILY 3RD ATTEMPT TO REACH FAMILY REGARDING CHANGE IN PT CONDITION. NO ANSWER AT BOTH NUMBERS PROVIDED ON FACE SHEET. MESSAGES LEFT TO BOTH CLOTILDE DUTTON AND STEPHEN CALDWELL. WILL CONTINUE TO TRY TO REACH FAMILY.
[2021-06-13] MEDS ORDERED: EPINEPHrine JECT 0.1 MG/ML SYR ONE ×2 (00:25)
[2021-06-13 00:32] LABS: BASOPHILS # (AUTO) 0.1 K/uL (0.0-0.2); BASOPHILS % (AUTO) 1.3 % (0.0-2.0); EOSINOPHILS # (AUTO) 0.3 K/uL (0.0-0.4); EOSINOPHILS % (AUTO) 3.5 % (0.0-4.0); HEMATOCRIT 22.9 % (36-54); HEMOGLOBIN 7.1 g/dL (14.0-18.0); LYMPHOCYTES # (AUTO) 3.4 K/uL (1.0-5.5); LYMPHOCYTES % (AUTO) 37.5 % (20.5-51.5); MEAN CORPUSCULAR HEMOGLOBIN 27 pg (27-31); MEAN CORPUSCULAR HGB CONC 31 % (32-36); MEAN CORPUSCULAR VOLUME 88 fL (79.0-98.0); MONOCYTES # (AUTO) 0.5 K/uL (0.0-1.0); MONOCYTES % (AUTO) 5.6 % (1.7-9.3); NEUTROPHILS # (AUTO) 4.7 K/uL (1.8-7.7); NEUTROPHILS % (AUTO) 52.1 % (40.0-70.0); PLATELET COUNT (AUTO) 283 K/uL (130-430); RED BLOOD CELL COUNT(AUTO) 2.62 MIL/uL (4.2-6.2); RED CELL DISTRIBUTION WIDTH 18.7 % (9.0-15.0); WHITE BLOOD COUNT (AUTO) 9.1 K/uL (4.8-10.8)
[2021-06-13 01:14] LABS: ANION GAP 13 (5-15); CALCIUM 9.2 mg/dL (8.4-11.0); CHLORIDE 102 mmol/L (98-107); CREATININE 6.15 mg/dL (0.55-1.30); GLUCOSE 231 mg/dL (70-99); SODIUM SERUM 138 mmol/L (136-145); UREA NITROGEN, BLOOD 38 mg/dL (8-21)
[2021-06-13 01:19] LABS: ALANINE AMINOTRANSFERASE 18 U/L (12-78); ALBUMIN 1.2 g/dL (3.4-4.8); ASPARTATE AMINOTRANSFERASE 85 U/L (10-37); TOTAL BILIRUBIN 0.3 mg/dL (0.0-1.0)
--- NOTE | 2021-06-13 01:31 | NUR ---
DR. CASSIDY SIN PAGED AT THIS TIME FOR ORDERS. SPOKE WITH AMBER AT THE EXCHANGE.
--- NOTE | 2021-06-13 01:47 | NUR ---
Patient cded two times tonight. I went into the room because patient started to marva into the low 50s then 40s and 30s. I yelled the patient's name and gave a really aggressive sternal rub and the patient did not respond. This morning wehn I was taking caring of him he would is yell whenever he was touched. I left the room because the blood presurre had dropped as well and I was going to start levophed. When I returned the pt was foaming at the mouth. Immediately a betina ellison was called. Pt family was called e rn Shortly after another code was called (see notes)
--- NOTE | 2021-06-13 01:56 | NUR ---
DR. CASSIDY SIN MADE AWARE OF PT CONDITION, CURRENT ABGS, AND CRITICAL LAB LACTIC 6.0. PER MD INCREASE RATE TO AC 22. WILL CARRY OUT ORDERED.
[2021-06-13 02:59] LABS: ERYTHROCYTE SEDIMENTATION RATE 129 MM/HR (0-15)
[2021-06-13 03:50] LABS: EOSINOPHILS # (AUTO) 0.1 K/uL (0.0-0.4); EOSINOPHILS % (AUTO) 4.4 % (0.0-4.0); HEMATOCRIT 28.7 % (36-54); HEMOGLOBIN 8.8 g/dL (14.0-18.0); LYMPHOCYTES # (AUTO) 0.6 K/uL (1.0-5.5); LYMPHOCYTES % (AUTO) 27.2 % (20.5-51.5); MEAN CORPUSCULAR HEMOGLOBIN 26 pg (27-31); MEAN CORPUSCULAR HGB CONC 31 % (32-36); MEAN CORPUSCULAR VOLUME 86 fL (79.0-98.0); MONOCYTES % (AUTO) 1.8 % (1.7-9.3); NEUTROPHILS # (AUTO) 1.6 K/uL (1.8-7.7); NEUTROPHILS % (AUTO) 65.6 % (40.0-70.0); PLATELET COUNT (AUTO) 294 K/uL (130-430); RED BLOOD CELL COUNT(AUTO) 3.33 MIL/uL (4.2-6.2); RED CELL DISTRIBUTION WIDTH 18.6 % (9.0-15.0); WHITE BLOOD COUNT (AUTO) 2.4 K/uL (4.8-10.8)
[2021-06-13 04:02] LABS: ALANINE AMINOTRANSFERASE 21 U/L (12-78); ALBUMIN 1.3 g/dL (3.4-4.8); ANION GAP 16 (5-15); ASPARTATE AMINOTRANSFERASE 109 U/L (10-37); CALCIUM 9.3 mg/dL (8.4-11.0); CHLORIDE 100 mmol/L (98-107); CREATININE 6.46 mg/dL (0.55-1.30); GLUCOSE 242 mg/dL (70-99); POTASSIUM 4.1 mmol/L (3.5-5.1); SODIUM SERUM 136 mmol/L (136-145); TOTAL BILIRUBIN 0.4 mg/dL (0.0-1.0); UREA NITROGEN, BLOOD 42 mg/dL (8-21)
[2021-06-13] MEDS ORDERED: SODIUM BICARBONATE 8.4% JECT 50 MEQ/50 ML SYRINGE IVP ONE (05:01)
[2021-06-13] MEDS ORDERED: NS 1000 ML IV.SOLN IV ONE (05:01)
[2021-06-13] MEDS ORDERED: NORMAL SALINE 10 ML VIAL IVP ONE (05:01)
--- NOTE | 2021-06-13 07:25 | NUR ---
[facility] called and [facility] states there is no case and body can be released. [facility] states that do not need anything from the body and a . I spoke with Lady at [facility]
--- NOTE | 2021-06-13 07:53 | NUR ---
Third code was call on pt once his vitals starting dropping quick. After changing the levophed I stepped out the room and shortly I notice the patients vitals were not doing good. MD came to beside to help and called time of 0502. See code sheet for more information
[2021-06-13] MEDS ORDERED: ETOMIDATE 20 MG/ 10 ML VIAL (AMIDATE) IVP ONE (10:13)
[2021-06-13] MEDS ORDERED: ROCURONIUM BROMIDE 10 MG/ML (ZEMURON) IV ONE (10:13)
[2021-06-13] MEDS ORDERED: cefTRIAXone 1 GM in D5W 50 ML IV SCH (11:00)
== END 2021-06-13 05:02 | DRG 853 ==
LOC: SED 18:08 → STU 21:12 → SMU 05-29 15:17 → SIC 06-08 10:51
PROVIDERS: ADMIT Internal Medicine Hospice and Palliative Medicine; ATTEND Internal Medicine Hospice and Palliative Medicine
PROC: 5A1D70Z Performance of Urinary Filtration, Intermittent, Less than 6 Hours Per Day (ICD-10-PCS; 2021-05-17)
PROC: 5A1D70Z Performance of Urinary Filtration, Intermittent, Less than 6 Hours Per Day (ICD-10-PCS; 2021-05-19)
PROC: 5A1D70Z Performance of Urinary Filtration, Intermittent, Less than 6 Hours Per Day (ICD-10-PCS; 2021-05-23)
PROC: 0Y6M0ZB Detachment at Right Foot, Partial 2nd Ray, Open Approach (ICD-10-PCS; principal; 2021-05-24 10:13)
PROC: 0JBQ0ZZ Excision of Right Foot Subcutaneous Tissue and Fascia, Open Approach (ICD-10-PCS; 2021-05-24 10:13)
PROC: 0JH63XZ Insertion of Tunneled Vascular Access Device into Chest Subcutaneous Tissue and Fascia, Percutaneous Approach (ICD-10-PCS; 2021-05-25)
PROC: 02H633Z Insertion of Infusion Device into Right Atrium, Percutaneous Approach (ICD-10-PCS; 2021-05-25)
PROC: B548ZZA Ultrasonography of Superior Vena Cava, Guidance (ICD-10-PCS; 2021-05-25)
PROC: B5181ZA Fluoroscopy of Superior Vena Cava using Low Osmolar Contrast, Guidance (ICD-10-PCS; 2021-05-25)
PROC: 5A1D70Z Performance of Urinary Filtration, Intermittent, Less than 6 Hours Per Day (ICD-10-PCS; 2021-05-25)
PROC: 5A1D70Z Performance of Urinary Filtration, Intermittent, Less than 6 Hours Per Day (ICD-10-PCS; 2021-05-28)
PROC: 5A1D70Z Performance of Urinary Filtration, Intermittent, Less than 6 Hours Per Day (ICD-10-PCS; 2021-05-30)
PROC: 0Y6H0Z1 Detachment at Right Lower Leg, High, Open Approach (ICD-10-PCS; 2021-06-01)
PROC: 5A1D70Z Performance of Urinary Filtration, Intermittent, Less than 6 Hours Per Day (ICD-10-PCS; 2021-06-02)
PROC: 5A1D70Z Performance of Urinary Filtration, Intermittent, Less than 6 Hours Per Day (ICD-10-PCS; 2021-06-03)
PROC: 5A1D70Z Performance of Urinary Filtration, Intermittent, Less than 6 Hours Per Day (ICD-10-PCS; 2021-06-04)
PROC: 5A1D70Z Performance of Urinary Filtration, Intermittent, Less than 6 Hours Per Day (ICD-10-PCS; 2021-06-06)
PROC: 0DH63UZ Insertion of Feeding Device into Stomach, Percutaneous Approach (ICD-10-PCS; 2021-06-07)
PROC: 0DB98ZX Excision of Duodenum, Via Natural or Artificial Opening Endoscopic, Diagnostic (ICD-10-PCS; 2021-06-07)
PROC: 0DB78ZX Excision of Stomach, Pylorus, Via Natural or Artificial Opening Endoscopic, Diagnostic (ICD-10-PCS; 2021-06-07)
PROC: 30233N1 Transfusion of Nonautologous Red Blood Cells into Peripheral Vein, Percutaneous Approach (ICD-10-PCS; 2021-06-08)
PROC: 5A1D70Z Performance of Urinary Filtration, Intermittent, Less than 6 Hours Per Day (ICD-10-PCS; 2021-06-08)
PROC: 5A1D70Z Performance of Urinary Filtration, Intermittent, Less than 6 Hours Per Day (ICD-10-PCS; 2021-06-12)
PROC: 0BH17EZ Insertion of Endotracheal Airway into Trachea, Via Natural or Artificial Opening (ICD-10-PCS; 2021-06-13)
PROC: 5A1935Z Respiratory Ventilation, Less than 24 Consecutive Hours (ICD-10-PCS; 2021-06-13)
DX: A41.9 Sepsis, unspecified organism (principal); I21.A1 Myocardial infarction type 2; G93.41 Metabolic encephalopathy; N18.6 End stage renal disease; M72.6 Necrotizing fasciitis; R65.21 Severe sepsis with septic shock; I96 Gangrene, not elsewhere classified; E11.52 Type 2 diabetes mellitus with diabetic peripheral angiopathy with gangrene; E87.1 Hypo-osmolality and hyponatremia; I12.0 Hypertensive chronic kidney disease with stage 5 chronic kidney disease or end stage renal disease; L02.611 Cutaneous abscess of right foot; L03.115 Cellulitis of right lower limb; N39.0 Urinary tract infection, site not specified; D62 Acute posthemorrhagic anemia; D63.1 Anemia in chronic kidney disease; D75.839 Thrombocytosis, unspecified; E11.22 Type 2 diabetes mellitus with diabetic chronic kidney disease; E11.42 Type 2 diabetes mellitus with diabetic polyneuropathy; E11.65 Type 2 diabetes mellitus with hyperglycemia; E83.39 Other disorders of phosphorus metabolism; E83.41 Hypermagnesemia; E83.51 Hypocalcemia; E87.5 Hyperkalemia; E88.09 Other disorders of plasma-protein metabolism, not elsewhere classified; F03.90 Unspecified dementia, unspecified severity, without behavioral disturbance, psychotic disturbance, mood disturbance, and anxiety; K20.90 Esophagitis, unspecified without bleeding; K26.9 Duodenal ulcer, unspecified as acute or chronic, without hemorrhage or perforation; R53.81 Other malaise; R74.01 Elevation of levels of liver transaminase levels; Z20.822 Contact with and (suspected) exposure to COVID-19; K29.80 Duodenitis without bleeding; R13.10 Dysphagia, unspecified; Z79.4 Long term (current) use of insulin; Z87.891 Personal history of nicotine dependence; Z99.2 Dependence on renal dialysis; Z79.899 Other long term (current) drug therapy
CPT/HCPCS: 36415; 36600; 43239; 43246; 70450-TC; 71045; 76000; 76376; 80048; 80053; 80076; 80202; 80307; 81000; 82140; 82803-TC; 82948; 82962; 83605; 83735; 84100; 84443; 84484; 85025; 85610-TC; 85651-TC; 85730-TC; 86140; 86886; 86900; 86901; 86920; 87040; 87070-TC; 87081; 87086; 87205-TC; 88305; 88311; 88312; 88313; 92610-GN; 92950; 93005; 93306; 93880; 93923; 93971; 94002; 94640; 94760; 96365; 97110-GP; 97163-GP; 97530-GP; 99291; C1713; C1750; C1751; C1769; C9113; G0365; G0378; G0482; J0171; J0360; J0461; J0690; J0692; J0696; J1100; J1265; J1644; J1650; J1815; J1940; J2001; J2250; J2270; J2405; J2543; J2704; J2765; J3010; J3370; J3430; J3465; J3490; J7030; J7050; J7060; J7120; P9021; Q5106